=== PATIENT | male | born 1945 | race Caucasian/White ===

== ENCOUNTER 2025-01-08 14:11 | Emergency (ER) | payer MEDICARE, OTHER, SELFPAY ==
--- NOTE | ~2025-01-08 | XR_ITS ---
HISTORY: fall, L hip pain COMPARISON: None TECHNIQUE: 2 views of the left hip along with an AP view of the pelvis FINDINGS: No acute fracture or dislocation is identified. Superior lateral sclerosis of the femoral acetabular joint space is present consistent with osteoarth ritis. The bony demineralization is age-appropriate. Penile prosthetic is present. Asymmetric density within the left hemipelvis, caudal to the SI joint, likely related to prosthetic r ather than acute traumatic injury. IMPRESSION: Degenerative disease without acute fracture or dislocation Reviewed, dictated and finalized at location A.
--- NOTE | ~2025-01-08 | XR_ITS ---
HISTORY: fall, pain/swelling COMPARISON: None TECHNIQUE: 3 views of the left wrist were performed. FINDINGS: No acute displaced fracture is identified. Cortical irregularity along the radial margin of the distal radius, possibly representing prior fract ure deformity for which clinical evaluation for point tenderness is recommended. The carpal arcs are intact. Mild radiocarpal joint space narrowing with sclerosis of the distal radius is present. The remaining visualized joint spaces are otherwise preserved. Bone mineralization is unremarkable. No significant soft tissue swelling is noted. No radiopaque foreign body is identified. IMPRESSION: Findings within the radial margin of the distal radius possibly representing prior fracture deformity versus a nondisplaced acute fracture for which clinical correlation for point tenderness is needed. Reviewed, dictated and finalized at location A. IMPRESSION: Findings within the radial margin of the distal radius possibly representing pr ior fracture deformity versus a nondisplaced acute fracture for which clinical correlation for point tenderness is needed.
--- NOTE | ~2025-01-08 | CT_ITS ---
EXAMINATION: CT brain wo con DATE: 01/08/2025 14:40 INDICATION: Fall with head injury TECHNIQUE: Computed tomography (CT) of the head was performed without intravenous contrast. Sagittal and coronal reconstructions were performed. The mA was adjusted according to patient size. Iterative reconstruction technique was employed. The dose-length product was 605.33 mGy-cm. COMPARISON: None FINDINGS: No fracture. No acute intracranial hemorrhage, acute infarction or abnormal extra axial fluid collect ion. There is mild scattered white matter hypoattenuation consistent with chronic small vessel ischem ic disease. Symmetric prominence of the sulci consistent with mild age-appropriate diffuse cerebral v olume loss. Ventricles are normal and symmetric. There appears to be some enlargement of the pituitar y gland with convex bulging of the cephalad margin which extends minimally above level of the sella. No other masses identified. Intracranial calcified cerebral atherosclerosis is noted. Changes of bila teral intraocular lens replacement. The orbits, paranasal sinuses and mastoid air cells are normal. IMPRESSION: 1. Mild enlargement of the pituitary with convex cephalad margin bulging slightly beyond the level of the sella. Could consider further evaluation with pituitary MRI as clinically indicated. 2. No acute intracranial process. 3. Age-related changes including mild diffuse volume loss and mild scattered white matter hypoattenua tion likely sequela of chronic small vessel ischemic disease. Reviewed, dictated and finalized at location A. IMPRESSION: 1. Mild enlargement of the pituitary with convex cephalad margin bulging slight ly beyond the level of the sella. Could consider further evaluation with pituit doug MRI as clinically indicated. 2. No acute intracranial process. 3. Age-related changes including mild diffuse volume loss and mild scattered wh ite matter hypoattenuation likely sequela of chronic small vessel ischemic dise ase.
--- NOTE | ~2025-01-08 | XR_ITS ---
EXAM: XR elbow LT min 3V DATE: 01/08/2025 15:03 HISTORY: pain, fall . COMPARISON: None available. FINDINGS: Normal mineralization. No fracture or dislocation. No lytic or blastic lesion. Mild degene rative change at the left elbow. No erosion or periosteal change. Soft tissues within normal limits. IMPRESSION: No acute osseous finding in the left elbow. Reviewed, dictated and finalized at location K.
--- NOTE | ~2025-01-08 | CT_ITS ---
EXAMINATION: CT cervical spine wo con DATE: 01/08/2025 14:40 INDICATION: fall, HI TECHNIQUE: Computed tomography (CT) of the cervical spine was performed without intravenous contrast. Automated exposure control and iterative reconstruction technique were employed. The dose-length pro duct was 643.10 mGy-cm. COMPARISON: None. FINDINGS: Vertebral Body Alignment: Intact. Craniocervical and atlantoaxial alignment: Moderate degenerative change. Alignment intact. Osseous structures/fracture: No evidence of a lytic or blastic process in the visualized spine. No e vidence of acute fracture. Cervical soft tissues: The paraspinal soft tissues planes are maintained. Degenerative changes: Degenerative changes, without severe neural foraminal or central canal narrowin g. IMPRESSION: No acute fracture or traumatic malalignment in the cervical spine. Reviewed, dictated and finalized at location K.
--- NOTE | ~2025-01-08 | XR_ITS ---
EXAMINATION: XR shoulder LT min 2V DATE: 01/08/2025 15:03 INDICATION: Left shoulder pain post fall TECHNIQUE: AP and transscapular Y views of the left shoulder were obtained. COMPARISON: None FINDINGS: Normal alignment. No fracture. Glenohumeral joint space is insufficiently profiled to assess for kateryna nt space narrowing. There is moderate to severe osteoarthritis at the left acromioclavicular joint. S oft tissues are unremarkable. Visualized portions of the lungs are clear. 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 No acute osseous abnormality. Reviewed, dictated and finalized at location A. 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 No acute osseous abno rmality.
[2025-01-08 14:23] VITALS: BP 119/60; PULSE 74; RESP 16; TEMP 36.3; O2SAT 98
--- NOTE | 2025-01-08 15:06 | ED_ITS ---
HPI - Fall General Chief Complaint: Fall Stated Complaint: Fall - HI, Shoulder pain Time Seen by Provider: 01/08/25 14:28 Source: patient Mode of arrival: ambulatory Limitations: no limitations History of Present Illness HPI Narrative: Patient is a 79 y/o male, with PMH of Parkinson's disease, who presents to the ED with c/o a fall. Patient reports he was attempting to get out of a car on a sloped surface when the wind blew the door shut, causing him to stumble backwards and fall. He fell to his L side. He did hit his head. Sustained small abrasion to L forehead. Denied LOC. Also c/o pain to L shoulder, L elbow, L wrist, L hip. Has been ambulatory since the fall. Denies numbness. Denies chest pain or shortness breath. Denies neck or back pain. Related Data Home Medications ?Medication ?Instructions ?Recorded ?Confirmed ?Last Taken ?Type allopurinol 300 mg tablet 300 mg PO DAILY 03/16/24 Unknown History alpha lipoic acid 600 mg capsule 600 mg PO DAILY 03/16/24 Unknown History aspirin 81 mg tablet,delayed 81 mg PO DAILY 03/16/24 Unknown History release cyanocobalamin (vitamin B-12) 1,000 mcg PO DAILY 03/16/24 Unknown History 1,000 mcg capsule docusate sodium 100 mg capsule 100 mg PO BID 03/16/24 Unknown History (Colace) empagliflozin 10 mg tablet 10 mg PO DAILY 03/16/24 Unknown History (Jardiance) enalapril maleate 5 mg tablet 5 mg PO DAILY 03/16/24 Unknown History gabapentin 400 mg capsule 400 mg PO TID 03/16/24 Unknown History guaifenesin 400 mg tablet 400 mg PO QID 03/16/24 Unknown History guaifenesin 600 mg tablet, 600 mg PO BID 03/16/24 Unknown History extended release 12 hr (Mucinex) metformin 500 mg tablet 500 mg PO DAILY 03/16/24 Unknown History mirabegron 50 mg tablet,extended 50 mg PO DAILY 03/16/24 Unknown History release 24 hr (Myrbetriq) pantoprazole 40 mg tablet,delayed 40 mg PO QAM 03/16/24 Unknown History release rosuvastatin 10 mg tablet 10 mg PO DAILY 03/16/24 Unknown History simethicone 125 mg capsule (Gas 125 mg PO DAILY PRN 03/16/24 Unknown History Relief (simethicone)) Allergies Allergy/AdvReac Type Severity Reaction Status Date / Time No Known Allergies Allergy Verified 03/23/24 10:16 Review of Systems Review of Systems: All systems reviewed & are unremarkable except as noted in HPI. All systems reviewed & are unremarkable except as noted in HPI and below [facility] Past Medical History Medical History Diabetes Neuropathy Surgical History Surgical History History of heart artery stent Social History Social History Smoking status: Never smoker Alcohol intake: never Substance use type: does not use Do You Feel Safe in your Home?: Yes Lack of Transportation: No Lack of Food: Never True Current Housing: I Have Housing Concerned About Future Housing: No Difficulty Paying Gas/Electric Bills: No Difficulty Paying for Meds: No Currently Unemployed: No Education: Trade/Vocational Certificate Difficulty w/ Childcare or Family Care: No Living arrangements: with family Occupation/Education: retired Exam Narrative: GENERAL: Elderly, obese with BMI of 31.8, non-toxic, in no acute distress. HEAD: Normocephalic, atraumatic. RESPIRATORY: Airway patent, respirations nonlabored. Clear to auscultation bilaterally, no rales, rhonchi, wheezing. CARDIOVASCULAR: Regular rate and rhythm without murmurs, rubs, or gallops. Radial pulses strong and easily palpable. MUSCULOSKELETAL: Moves all extremities. No gross deformities. Mild TTP over L anterior shoulder joint/distal clavicular region, with fairly preserved ROM. TTP over lateral epicondyle of left elbow, left distal radius some swelling in this location. No significant tenderness over dorsal hand/distal ulnar region. No midline tenderness to cervical, thoracic, lumbar spine. No palpable bony deformities. SKIN: Warm, dry, normal color. NEURO: A&O X3. Speech clear. Cranial nerves II-XII grossly intact. No ataxic movements. No focal deficits. PSYCHIATRIC: Appropriate mood and affect. Normal interaction. Course Vital Signs Vital signs: Vital Signs Temperature 97.4 F L 01/08/25 14:23 Pulse Rate 74 01/08/25 14:23 Respiratory Rate 16 01/08/25 14:23 Blood Pressure 119/60 01/08/25 14:23 Pulse Oximetry 98 01/08/25 14:23 Temperature 97.4 F L 01/08/25 14:23 Pulse Rate 94 01/08/25 19:32 Respiratory Rate 16 01/08/25 19:32 Blood Pressure 131/73 01/08/25 19:32 Pulse Oximetry 93 01/08/25 19:32 MDM - Fall MDM Narrative Medical decision making narrative: Patient who presented to ED with ground level mechanical fall, head injury, pain to left shoulder/elbow/wrist. Vital signs stable upon arrival. Patient in no acute distress. Neurologically intact. CT brain and cervical spine without acute traumatic findings. Did show mild enlargement of pituitary gland which I made patient aware of may need further outpatient imaging. Advised patient have close follow-up with PCP for this. He has had previous brain imaging at outside facility, no records here to compare to. X-ray of left shoulder and left elbow without acute traumatic findings. Did also complain of slight pain to his left hip. X-ray of left hip/pelvis was obtained without acute fracture. X-ray of left wrist with possible distal radius fracture. Patient does have focal point tenderness in this region with swelling. Will treat as acute fracture. Placed in volar splint. Given sling. Advised to follow-up closely with Orthopedics for further evaluation. Patient has previously seen Dr. Davis. Discussed rice therapy. Patient has tramadol at home that he can use, also takes Tylenol and ibuprofen. Recommended to continue these medications, discussed strict return precautions. Patient in agreement with plan. Feels comfortable going home with family. Discharged in stable condition. Medical Records Attestation: I reviewed the patient's medical records. Imaging Data Attestation: I personally reviewed and interpreted this imaging study as follows: Radiologist's impression: ITS Impressions Head CT 01/08/25 14:43 IMPRESSION: 1. Mild enlargement of the pituitary with convex cephalad margin bulging slightl y beyond the level of the sella. Could consider further evaluation with pituitary MRI as clinically indicated. 2. No acute intracranial process. 3. Age-related changes including mild diffuse volume loss and mild scattered white matter hypoattenuation likely sequela of chronic small vessel ischemic disease. Cervical Spine CT 01/08/25 14:48 IMPRESSION: No acute fracture or traumatic malalignment in the cervical spine. 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 No acute osseous abnormality. Elbow X-Ray 01/08/25 15:26 IMPRESSION: No acute osseous finding in the left elbow. Wrist X-Ray 01/08/25 15:46 IMPRESSION: Findings within the radial margin of the distal radius possibly representing prior fracture deformity versus a nondisplaced acute fracture for which clinical correlation for point tenderness is needed. Discharge Plan Discharge Clinical Impression: Fall from ground level, Enlarged pituitary gland Closed head injury Qualifiers: Encounter type: initial encounter Qualified Code(s): S09.90XA - Unspecified injury of head, initial encounter Closed fracture of left distal radius Qualifiers: Encounter type: initial encounter Fracture morphology: other fracture Qualified Code(s): S52.592A - Other fractures of lower end of left radius, initial encounter for closed fracture Patient Disposition: Home, Self-Care Condition: Stable Instructions: Antibiotic Form, Wrist Fracture in Adults (ED), How to Use a Sling (ED), Head Injury (ED) Additional Instructions: Follow up with Orthopedics for further evaluation of wrist fracture. Call office to make appointment. Wear splint until seen by Orthopedics. Utilize sling for comfort and support. Continue Tylenol, ibuprofen, tramadol as needed for pain. Elevate arm whenever able, recommend frequent icing to wrist. Your CT scan of your brain showed mild enlargement of your pituitary gland. You will need further imaging of this. Follow-up with your primary care doctor for this. Return to the ED if you experience worsening or severe pain, recurrent injury, numbness, severe dizziness, passing out, or any other symptoms of concern. Patient Language: Romansh Prescriptions: No Action alpha lipoic acid 600 mg capsule 600 mg PO DAILY guaifenesin [Mucinex] 600 mg tablet extended release 12hr 600 mg PO BID enalapril maleate 5 mg tablet 5 mg PO DAILY rosuvastatin 10 mg tablet 10 mg PO DAILY allopurinol 300 mg tablet 300 mg PO DAILY mirabegron [Myrbetriq] 50 mg tablet extended release 24 hr 50 mg PO DAILY gabapentin 400 mg capsule 400 mg PO TID aspirin 81 mg tablet,delayed release (DR/EC) 81 mg PO DAILY guaifenesin 400 mg tablet 400 mg PO QID Jardiance 10 mg tablet 10 mg PO DAILY cyanocobalamin (vitamin B-12) 1,000 mcg capsule 1,000 mcg PO DAILY pantoprazole 40 mg tablet,delayed release (DR/EC) 40 mg PO QAM metformin 500 mg tablet 500 mg PO DAILY simethicone [Gas Relief (simethicone)] 125 mg capsule 125 mg PO DAILY PRN docusate sodium [Colace] 100 mg capsule 100 mg PO BID Follow-up/Referrals: Joshua,Baltazar Armstrong MD [Primary Care Provider] - Sandro Davis MD [Physician] - (ORTHOPEDICS) Time of Disposition: 17:27
--- OUTSIDE RECORDS SUMMARY | 2025-01-08 15:38 | XMS_ITS | CONTINUITY OF CARE DOCUMENT ---
Author Name tate ybarra Address Unknown Organization [facility] Address [address] [place] [address] Phone [phone] Care Team Providers Care Trim Master Operator Name Role Phone Nathaniel Washington MD Unavailable [phone] WARD STERN MD Unavailable [phone] WARD STERN MD Unavailable PROBLEMS Condition Status Date Provider Notes Cardiology examination completed 5 - Nathaniel Washington MD Hypertension active Nathaniel Washington MD Shortness of breath active Nathnaiel Washington MD Leg edema, bilateral active Nathaniel Washington MD CHF active Maura Nolan Preop cardiovasc. examination active Elizabeth Nolan Fatigue active Nathaniel Washington MD Diabetes mellitus active Nathaniel Washington MD Dyslipidemia active Nathaniel Washington MD Cardiomyopathy - 02/2019 CAT H EF 35% - 05/2019 TTE EF 55% active Joselito Lewis NSTEMI 02/2019 active Nathaniel Washington MD CAD S/P LAD STENT 02/2019 active Joselito Lewis Family History of CVA or Stroke: completed - Nathaniel Washington MD Family History of Hypertension: completed - Nathaniel Washington MD ENCOUNTERS Date Type Provider Location Encounter Diag nosis - In-person encounter Office Visit Nathaniel Washington MD [facility] - In-person encounter Office Visit Nathaniel Washington MD [facility] Leg edema, bilateral - In-person encounter Office Visit Nathaniel Washington MD [facility] - In-person encounter Office Visit Nathaniel Washington MD [facility] - In-person encounter Office Visit Nathaniel Washington MD [facility] - In-person encounter Office Visit Nathaniel Washington MD [facility] CHF - In-person encounter Office Visit Nathaniel Washington MD [facility] Preop cardiovasc. examination - In-person encounter Office Visit Nathaniel Washington MD [facility] Shortness of breathFatigue - In-person encounter Office Visit Nathaniel Washington MD [facility] - In-person encounter Office Visit Nathaniel Washington MD [facility] CAD S/P LAD STENT 02/2019Cardiomyopathy - 02/2019 CATH EF 35% - 05/2019 TTE EF 55% - In-person encounter Office Visit Nathaniel Washington MD [facility] Cardiology examinationFamily History of Hypertension:Family History of CVA or Stroke:CAD S/P LAD STENT 02/2019NSTEMI 02/2019Cardiomyopathy - 02/2019 CATH EF 35% - 05/2019 TTE EF 55%HypertensionDyslipidem iaDiabetes mellitus VITAL SIGNS Date Observation Value Provider Body Mass Index (Ratio) 31.22 kg/m2 Nathaniel Washington MD blood pressure, diastolic 75 mm[Hg] Liban ortiz [place] blood pressure, systolic 139 mm[Hg] Selene becker [place] oxygen saturation, oximetry 98 % Maite [place] pulse rate 73 /min Maite [place] weight E&M 217.6 [lb_av] Kyaron Ramirez height E&M 70 [in_i] Maite Ramirez blood pressure, cuff size regular Liban ortiz Ramirez Body Mass Index (Ratio) 31.42 kg/m2 Elver Marti oxygen saturation, oximetry 97 % Jo Ann Michaels blood pressure, cuff size regular An jordana Michaels blood pressure, diastolic 78 mm[Hg] An iyanico Michaels blood pressure, systolic 128 mm[Hg] Robina escobar [place] respiratory rate E&M 14 /min [facility] E&M 219 [lb_av] [facility] height E&M 70 [in_i] [facility] Body Mass Index (Ratio) 32.42 kg/m2 Grah am Lul blood pressure, diastolic 71 mm[Hg] Li nkLogic blood pressure, systolic 126 mm[Hg] Sydney kLogic blood pressure, cuff size regular Zeyad rret blood pressure, diastolic 71 mm[Hg] Ja rret blood pressure, systolic 126 mm[Hg] Jar ret pulse rate 75 /min Justo oxygen saturation, oximetry 98 % Justo respiratory rate E&M 14 /min Justo weight E&M 226 [lb_av] Justo da height E&M 70 [in_i] Justo Body Mass Index (Ratio) 34.86 kg/m2 Grah am Lul blood pressure, cuff size regular Delisa [facility] blood pressure, diastolic 63 mm[Hg] [facility] blood pressure, systolic 123 mm[Hg] [facility] Vance pulse rate 68 /min Karolina Vance oxygen saturation, oximetry 99 % Karolina Vance respiratory rate E&M 16 /min Karolina huertar weight E&M 243 [lb_av] Karolina Vance height E&M 70 [in_i] Karolina [place] Body Mass Index (Ratio) 33.28 kg/m2 Jhonatan mendoza [facility] blood pressure, cuff size regular Ja rret blood pressure, diastolic 64 mm[Hg] Ja rret blood pressure, systolic 106 mm[Hg] Jar ret oxygen saturation, oximetry 100 % Justo respiratory rate E&M 12 /min Justo pulse rate 68 /min Justo y weight E&M 232 [lb_av] Justo y height E&M 70 [in_i] Justo y Body Mass Index (Ratio) 34.58 kg/m2 Caroline Nolan blood pressure, diastolic 69 mm[Hg] St niesha Ansari blood pressure, systolic 128 mm[Hg] Karuna Ansari weight E&M 241 [lb_av] Patricia Ansari oxygen saturation, oximetry 97 % Patricia Ansari pulse rate 70 /min Patricia Ansari respiratory rate E&M 16 /min Patricia shannon height E&M 70 [in_i] Patricia Ansari Body Mass Index (Ratio) 35.44 kg/m2 Caroline Nolan blood pressure, cuff size large Ke rri Olivier blood pressure, diastolic 76 mm[Hg] Ke rri [place] blood pressure, systolic 142 mm[Hg] Chris Aguayo oxygen saturation, oximetry 99 % Laura Aguayo respiratory rate E&M 16 /min Laura uselder pulse rate 75 /min Laura Starks lder weight E&M 247 [lb_av] Laura Starks lder height E&M 70 [in_i] Laura Starks lder Body Mass Index (Ratio) 34.86 kg/m2 Caroline Carrasquillomegood blood pressure, diastolic 58 mm[Hg] Li nkLogic blood pressure, systolic 114 mm[Hg] Sydney kLogic blood pressure, diastolic 58 mm[Hg] Sa ra Chong blood pressure, systolic 114 mm[Hg] Amadou a Chong respiratory rate E&M 17 /min Janeth Si ms oxygen saturation, oximetry 98 % Janeth Chong pulse rate 70 /min Janeth Chong blood pressure, cuff size regular Sa ra Chong weight E&M 243 [lb_av] Janeth Chong height E&M 70 [in_i] Janeth Chong Body Mass Index (Ratio) 35.87 kg/m2 Caroline Carrasquillomeyer blood pressure, diastolic 70 mm[Hg] Li nkLogic blood pressure, systolic 140 mm[Hg] Sydney kLogic blood pressure, cuff size regular Kr isty [place] blood pressure, diastolic 70 mm[Hg] Kr isty [place] blood pressure, systolic 140 mm[Hg] Kri sty [place] pulse rate 80 /min Kerrie [place] oxygen saturation, oximetry 98 % Kerrie [place] respiratory rate E&M 19 /min Kerrie [place] weight E&M 250 [lb_av] Kerrie Mauro height E&M 70 [in_i] Kerrie [place] Body Mass Index (Ratio) 34.72 kg/m2 Artem Lewis blood pressure, diastolic, left arm 73 mm [Hg] [facility] blood pressure, systolic, left arm 131 mm [Hg] [facility] blood pressure, diastolic, right arm 79 m m[Hg] [facility] blood pressure, systolic, right arm 133 m m[Hg] [facility] blood pressure, diastolic 79 mm[Hg] [facility] blood pressure, systolic 133 mm[Hg] [facility] oxygen saturation, oximetry 98 % [facility] respiratory rate E&M 16 /min [facility] pulse rate 71 /min [facility] weight E&M 242 [lb_av] [facility] height E&M 70 [in_i] [facility] Body Mass Index (Ratio) 22.96 kg/m2 Artem [place] blood pressure, resting Yes Nathaniel Washington MD blood pressure, cuff size regular Cy jett Mayo blood pressure, diastolic 62 mm[Hg] Cy jett Mayo blood pressure, systolic 120 mm[Hg] Jessica dipak [place] oxygen saturation, oximetry 98 % Briseida Mayo respiratory rate E&M 16 /min Briseida Mayo pulse rate 70 /min Briseida Constantino l height E&M 70 [in_i] Briseida Yobanibel l weight E&M 160 [lb_av] Briseida Yobanibel l ALLERGIES No Known Drug Allergies RESULTS Date Observation Value Provider Reference Range Interpretation Location hemoglobin A1C, blood, as % of total hemoglobin 6.0 % OF TOTAL HGB [facility] <5.7 High C-reactive protein, serum <3.0 mg/L [facility] <8.0 Normal basophils as percent of blood leukocytes 1.5 % [facility] Normal eosinophils as percent of blood leukocytes 2.5 % [facility] Normal monocyte count, blood 7.9 % [facility] Normal lymphocyte count, blood 29.3 % [facility] Normal neutrophils as percent of blood leukocytes 58.8 % [facility] Normal basophils, absolute, manual 102 cells/mcL [facility] 0-200 Normal eosinophils, absolute, manual 170 cells/mcL [facility] 15-500 Normal monocytes, absolute, manual 537 cells/mcL [facility] 200-950 Normal lymphocytes, absolute 1992 CELLS/UL [facility] 850-3900 Normal Absolute Neutrophil count 3998 cells/mcL [facility] [id number] Normal mean platelet volume 11.8 fL [facility] 7.5-12.5 Normal platelet count 227 THOUSAND/ UL [facility] 140-400 Normal red blood cell distribution width 12.8 % [facility] 11.0-15.0 Normal mean corpuscular hemoglobin concentration, RBC 31.8 G/DL [facility] 32.0-36.0 Low mean corpuscular hemoglobin, RBC 29.9 pg [facility] 27.0-33.0 Normal mean corpuscular volume, RBC 94.1 fL [facility] 80.0-100.0 Normal hematocrit, blood 44.4 % [facility] 38.5-50.0 Normal hemoglobin electrophoresis, blood 14.1 [facility] 13.2-17.1 Normal erythrocyte (RBC) count 4.72 MILLION/U L [facility] 4.20-5.80 Normal leukocyte (white blood cells) count, blood 6.8 THOUSAND/ UL [facility] 3.8-10.8 Normal NT-pro BNP 81 [facility] <450 Normal alanine aminotransferase (SGPT), serum 15 1/L [facility] 9-46 Normal aspartate aminotransferase (SGOT), serum 17 1/L [facility] 10-35 Normal alkaline phosphatase, serum 71 1/L [facility] 35-144 Normal bilirubin, serum, total 0.4 mg/dL [facility] 0.2-1.2 Normal albumin/globulin ratio, serum 1.8 (calc) [facility] 1.0-2.5 Normal globulins, serum, total 2.3 G/DL (CALC) [facility] 1.9-3.7 Normal albumin, serum 4.2 g/dL [facility] 3.6-5.1 Normal protein, total, serum 6.5 g/dL [facility] 6.1-8.1 Normal calcium, serum 9.1 mg/dL [facility] 8.6-10.3 Normal carbon dioxide, venous blood 30 mmol/L [facility] 20-32 Normal chloride, serum 103 mmol/L [facility] 98-110 Normal potassium, serum 4.5 mmol/L [facility] 3.5-5.3 Normal sodium, serum 141 mmol/L [facility] 135-146 Normal urea nitrogen/creatinine ratio, serum SEE NOTE: (calc) [facility] 6-22 creatinine, serum 1.01 mg/dL [facility] 0.70-1.28 Normal urea nitrogen, blood 16 mg/dL [facility] 7-25 Normal blood glucose, random 106 mg/dL [facility] 65-99 High microalbumin/creatin ine ratio, urine 23 MG/G CREAT [facility] <30 Normal microalbumin/total urine volume 19 mg/L [facility] Units converted. See lab report for original value. Normal creatinine, random, urine 83 mg/dL [facility] 20-320 Normal cholesterol, non-HDL, total 66 MG/DL (CALC) [facility] <130 Normal cholesterol/HDL ratio, serum, percent 2.5 (calc) [facility] <5.0 Normal LDL cholesterol, serum 44 MG/DL (CALC) [facility] Normal triglyceride, serum, fasting 132 mg/dL [facility] <150 Normal HDL cholesterol, serum 44 mg/dL [facility] > OR = 40 Normal cholesterol, serum 110 mg/dL [facility] <200 Normal hemoglobin A1C, blood, as % of total hemoglobin 6.1 % OF TOTAL HGB [facility] <5.7 High C-reactive protein, by highly sensitive test 4.5 mg/L [facility] High calcium, serum 9.1 mg/dL [facility] 8.6-10.3 Normal carbon dioxide, venous blood 31 mmol/L [facility] 20-32 Normal chloride, serum 103 mmol/L [facility] 98-110 Normal potassium, serum 4.5 mmol/L [facility] 3.5-5.3 Normal sodium, serum 143 mmol/L [facility] 135-146 Normal urea nitrogen/creatinine ratio, serum SEE NOTE: (calc) [facility] 6-22 creatinine, serum 1.19 mg/dL [facility] 0.70-1.28 Normal urea nitrogen, blood 20 mg/dL [facility] 7-25 Normal blood glucose, random 112 mg/dL [facility] 65-99 High NT-pro BNP 185 [facility] <450 Normal microalbumin/creatin ine ratio, urine 29 MCG/MG CREAT [facility] <30 Normal microalbumin/total urine volume 10 mg/L [facility] Units converted. See lab report for original value. Normal creatinine, random, urine 34 mg/dL [facility] 20-320 Normal cholesterol, non-HDL, total 117 MG/DL (CALC) [facility] <130 Normal cholesterol/HDL ratio, serum, percent 3.5 (calc) [facility] <5.0 Normal LDL cholesterol, serum 86 MG/DL (CALC) [facility] Normal triglyceride, serum, fasting 222 mg/dL [facility] <150 High HDL cholesterol, serum 46 mg/dL [facility] > OR = 40 Normal cholesterol, serum 163 mg/dL [facility] <200 Normal hemoglobin A1C, blood, as % of total hemoglobin 8.4 % [facility] triglyceride, serum, fasting 182 mg/dL [facility] HDL cholesterol, serum 35 mg/dL [facility] cholesterol, serum 141 mg/dL [facility] platelet count 202 10*3/uL [facility] red blood cell distribution width 13.7 % [facility] mean corpuscular hemoglobin concentration, RBC 32.8 g/dL [facility] mean corpuscular hemoglobin, RBC 28.8 pg [facility] mean corpuscular volume, RBC 87.9 fL [facility] hematocrit, blood 40.6 % [facility] hemoglobin, blood 13.3 g/dL [facility] erythrocyte (RBC) count 4.62 10*6/mm3 [facility] leukocyte count, blood 10.8 10*3/mm3 [facility] calcium, serum 9.0 mg/dL [facility] blood glucose, random 186 mg/dL [facility] creatinine, serum 1.06 mg/dL [facility] urea nitrogen, blood 22 mg/dL [facility] carbon dioxide, serum, total 27 mmol/L [facility] chloride, serum 97 mmol/L [facility] potassium, serum 3.4 mmol/L [facility] sodium, serum 136 mmol/L [facility] LDL cholesterol, serum 70 mg/dL [facility] HISTORY OF MEDICATION USE Medication Status Instructions Dates Provider Indications [facility] ments allopurinol 300 mg tablet active Take 1 tablet by mouth once daily James Severino rosuvastatin 10 mg tablet active TAKE 1 TABLET BY MOUTH EVERY DAY AT NIGHT 01/22 Nathaniel Washington MD Jardiance 10 mg tablet active Take 1 tablet by mouth once daily 11/14 Nathaniel Washington MD allopurinol 300 mg tablet completed Take 1 tablet by mouth once a day - James Severino Jardiance 10 mg tablet completed Take 1 tablet by mouth once a day - 11/14 Justo Arce enalapril maleate 5 mg tablet active TAKE 1 TABLET BY MOUTH AT BEDTIME 05/17 Nathaniel Washington MD Brilinta 90 mg tablet completed Take 1 tablet by mouth twice daily 11/01 - 04/25 Nathaniel Washington MD carvedilol 3.125 mg tablet completed Take 1 tablet by mouth twice daily 06/24 - Nathaniel Washington MD OneTouch Verio test strips strip active USE 1 STRIP TO CHECK GLUCOSE ONCE DAILY Kerrie LazcanoTouch Delica Plus Lancet 33 gauge 33 gauge active USE 1 TO CHECK GLUCOSE ONCE DAILY Kerrie Mauro tramadol 50 mg tablet active Kerrie Mauro CRANBERRY 500 MG ORAL CAPSULE active Take 1 tablet once a day 03/14 Briseida Mayo allopurinol 300 mg tablet completed Take 1 tablet once a day 03/14 - 04/25 Nathaniel Washington MD metformin 500 mg tablet active Take 1 tablet twice a day 03/14 Briseida Mayo HYDROCHLOROTHIAZIDE 25 MG ORAL TABLET entered-in -error Take 1 tablet daily 03/14 - 03/14 Nathaniel Washington MD HYDROCHLOROTHIAZIDE 50 MG ORAL TABLET entered-in -error take 1 tablet daily 03/14 - 03/14 Nathaniel Washington MD enalapril maleate 5 mg tablet completed Take 1 tablet by mouth every night 05/25 - 05/17 Dominique Sow Brilinta 90 mg tablet completed Take 1 tablet by mouth twice a day 01/31 - 11/01 Laura Nazarioshaemoisés aspirin 81 mg tablet,chewable active Take 1 tablet once a day 03/14 Briseida Mayo potassium citrate 10 mEq (1,080 mg) tablet extended release active 01/15 Briseida Mayo #120, 60 days supply, Prescribed by PETER HIGUERA, Filled 01/17/2019 BRILINTA 90 MG ORAL TABLET entered-in -error Take 1 tablet a day 02/12 - 03/14 Nathaniel Washington MD #60, 30 days supply, Prescribed by LEANDER GRIMES, Filled 02/12/2019 hydrochlorothiazide 25 mg tablet active Take 3 tablet by mouth once a day 10/31 Briseida Mayo #90, 30 days supply, Prescribed by PETER HIGUERA, Filled 03/10/2019 ENALAPRIL MALEATE 5 MG ORAL TABLET entered-in -error TAKE 1 TABLET BY MOUTH ONCE DAILY AT BEDTIME 02/12 - 03/14 Nathaniel Washington MD #30, 30 days supply, Prescribed by LEANDER GRIMES, Filled 03/10/2019 carvedilol 6.25 mg tablet completed Take 1 tablet by mouth twice a day 02/01 - 06/24 Edin Flores #60, 30 days supply, Prescribed by LEANDER GRIMES, Filled 03/10/2019 SOCIAL HISTORY Date Observation Value Provider smoking status Never smoker Nathaniel Briceño smoking status Never smoker Nathaniel Briceño smoking status Never smoker Maycol galeas social history reviewed E&M revi ewed - no changes required Maycol Mccarty social history reviewed E&M revi ewed - no changes required Nathaniel Washington MD smoking status Never smoker Patricia Ansari social history reviewed E&M revi ewed - no changes required Maura Nolan social history E&M S moking History: P stacy has never smoked. Maura Nolan social history reviewed E&M revi ewed - no changes required Maura Nolan smoking status Never smoker Laura branham social history reviewed E&M revi ewed - no changes required Maura Nolan social history E&M S moking History: P stacy has never smoked. Nathaniel Washington MD social history reviewed E&M revi ewed - no changes required Nathaniel Washington MD smoking status Never smoker Kerrie Ramirezby social history reviewed E&M revi ewed - no changes required Joselito Lewis smoking status Never smoker Bea Schaeffer social history reviewed E&M revi ewed - no changes required Joselito Lewis social history E&M Smoking Histo ry: P stacy has never smoked. Joselito Lewis smoking status Never smoker Briseida rios FUNCTIONAL STATUS Date Observation Value Provider HRA, CV Assess/Plan, Angina (inactive) Management Plan continue current therapy Nathaniel Washington MD HRA, CV Assess/Plan, Angina (inactive) Management Plan continue current therapy, antianginal therapy Nathaniel Washington MD HRA, CV Assess/Plan, Angina (inactive) Management Plan continue current therapy Maycol Mccarty HRA, CV Assess/Plan, Angina (inactive) Management Plan continue current therapy Maycol Mccarty HRA, CV Assess/Plan, Angina (inactive) Management Plan continue current therapy Nathaniel Washington MD HRA, CV Assess/Plan, Angina (inactive) Management Plan continue current therapy Maura Nolan HRA, CV Assess/Plan, Angina (inactive) Management Plan continue current therapy Nathaniel Washington MD HRA, CV Assess/Plan, Angina (inactive) Management Plan continue current therapy Maura Nolan HRA, CV Assess/Plan, Angina (inactive) Management Plan continue current therapy Nathaniel Washington MD HRA, CV Assess/Plan, Angina (inactive) Management Plan continue current therapy Joselito Lewis HRA, CV Assess/Plan, Angina (inactive) Management Plan continue current therapy Joselito Lewis FAMILY HISTORY Family Member Condition Father Family History of CV A or Stroke: Mother Family History of Hy pertension: INSURANCE PROVIDERS Payer name Policy type / Coverage type Orange red constitution party ID [employer] [id number] [place] MEDICARE Medicare [id number] ADVANCE DIRECTIVES Name Date DISCUSSED - NO DECISION MADE TREATMENT PLAN Date Name Performer [id number],Maycol Johnson [id number],S, B P today: 123/63 P rior BP: 106/64 (04/25/2023) Labs Reviewed: C reat: 1.06 (02/12/2019) C hol: 141 (02/12/2019) HDL: 35 (02/12/2019) LDL: 70 (02/12/2019) T (02/12/2019) The following medications were removed from the medication list: Carvedilol 3.125 Mg Tablet (Carvedilol) ..... Take 1 tablet by mouth twice daily His updated medication list for this problem includes: Enalapril Maleate 5 Mg Tablet (Enalapril maleate) ..... Take 1 tablet by mouth at bedtime Hydrochlorothiazide 25 Mg Tablet (Hydrochlorothiazide) ..... Take 3 tablet by mouth once a day Aspirin 81 Mg Tablet,chewable (Aspirin) ..... Take 1 tablet once a day Maycol Mccarty [id number],S, H is updated medication list for this problem includes: Enalapril Maleate 5 Mg Tablet (Enalapril maleate) ..... Take 1 tablet by mouth at bedtime Jardiance 10 Mg Tablet (Empagliflozin) ..... Take 1 tablet by mouth once a day Metformin 500 Mg Tablet (Metformin) ..... Take 1 tablet twice a day Aspirin 81 Mg Tablet,chewable (Aspirin) ..... Take 1 tablet once a day Maycol Mccarty [id number],S, T he following medications were removed from the medication list: Carvedilol 3.125 Mg Tablet (Carvedilol) ..... Take 1 tablet by mouth twice daily His updated medication list for this problem includes: Enalapril Maleate 5 Mg Tablet (Enalapril maleate) ..... Take 1 tablet by mouth at bedtime Hydrochlorothiazide 25 Mg Tablet (Hydrochlorothiazide) ..... Take 3 tablet by mouth once a day Aspirin 81 Mg Tablet,chewable (Aspirin) ..... Take 1 tablet once a day Macyol Valadezri [id number],S,S till complaining of fatigue, we will stop carvedilol today. Will obtain f/u echo he will resume allopurinol for his gout. We will obtain lab work Maycol Mccarty [id number],C, D iet controlled Nathaniel Washington MD [id number],C, T he following medications were removed from the medication list: Brilinta 90 Mg Tablet (Ticagrelor) ..... Take 1 tablet by mouth twice daily His updated medication list for this problem includes: Carvedilol 3.125 Mg Tablet (Carvedilol) ..... Take 1 tablet by mouth twice daily Enalapril Maleate 5 Mg Tablet (Enalapril maleate) ..... Take 1 tablet by mouth at bedtime Hydrochlorothiazide 25 Mg Tablet (Hydrochlorothiazide) ..... Take 3 tablet by mouth once a day Aspirin 81 Mg Tablet,chewable (Aspirin) ..... Take 1 tablet once a day Pt denies SOB and chest pain. Overall doing well. Nathaniel Washington MD [id number],C, H is updated medication list for this problem includes: Enalapril Maleate 5 Mg Tablet (Enalapril maleate) ..... Take 1 tablet by mouth at bedtime Jardiance 10 Mg Tablet (Empagliflozin) ..... Take 1 tablet by mouth once a day Metformin 500 Mg Tablet (Metformin) ..... Take 1 tablet twice a day Aspirin 81 Mg Tablet,chewable (Aspirin) ..... Take 1 tablet once a day Nathaniel Washington MD [id number],C, B P today: 106/64 P rior BP: 128/69 (10/25/2022) Labs Reviewed: C reat: 1.06 (02/12/2019) C hol: 141 (02/12/2019) HDL: 35 (02/12/2019) LDL: 70 (02/12/2019) T (02/12/2019) His updated medication list for this problem includes: Carvedilol 6.25 Mg Tablet (Carvedilol) ..... Take 1 tablet by mouth twice daily Enalapril Maleate 5 Mg Tablet (Enalapril maleate) ..... Take 1 tablet by mouth at bedtime Hydrochlorothiazide 25 Mg Tablet (Hydrochlorothiazide) ..... Take 3 tablet by mouth once a day Aspirin 81 Mg Tablet,chewable (Aspirin) ..... Take 1 tablet once a day Orders: 9 9214 MOD 30-39min ([id number]) R PM (remote patient monitoring) (20590) Nathaniel Washington MD [id number],S, P t presented to [facility] with chest discomfort, ruled in for FL, and stent was placed in the mid LAD. Nathaniel Washington MD [id number],C, P t reports improvement with Jardiance, however still SOB CHF class III. PFTs were normal. [facility]. T he following medications were removed from the medication list: Brilinta 90 Mg Tablet (Ticagrelor) ..... Take 1 tablet by mouth twice daily His updated medication list for this problem includes: Carvedilol 3.125 Mg Tablet (Carvedilol) ..... Take 1 tablet by mouth twice daily Enalapril Maleate 5 Mg Tablet (Enalapril maleate) ..... Take 1 tablet by mouth at bedtime Hydrochlorothiazide 25 Mg Tablet (Hydrochlorothiazide) ..... Take 3 tablet by mouth once a day Aspirin 81 Mg Tablet,chewable (Aspirin) ..... Take 1 tablet once a day Nathaniel Washington MD [id number],C, P t denies any chest pain. T he following medications were removed from the medication list: Brilinta 90 Mg Tablet (Ticagrelor) ..... Take 1 tablet by mouth twice daily H is updated medication list for this problem includes: Carvedilol 3.125 Mg Tablet (Carvedilol) ..... Take 1 tablet by mouth twice daily Enalapril Maleate 5 Mg Tablet (Enalapril maleate) ..... Take 1 tablet by mouth at bedtime Aspirin 81 Mg Tablet,chewable (Aspirin) ..... Take 1 tablet once a day Nathaniel Washington MD [id number],C,P t reports improvement with Jardiance, however still SOB CHF class III. PFTs were normal. He [facility]. H is updated medication list for this problem includes: Enalapril Maleate 5 Mg Tablet (Enalapril maleate) ..... Take 1 tablet by mouth at bedtime Carvedilol 6.25 Mg Tablet (Carvedilol) ..... Take 1 tablet by mouth twice daily Hydrochlorothiazide 25 Mg Tablet (Hydrochlorothiazide) ..... Take 3 tablet by mouth once a day Aspirin 81 Mg Tablet,chewable (Aspirin) ..... Take 1 tablet once a day Maura Nolan [id number],C, H is updated medication list for this problem includes: Enalapril Maleate 5 Mg Tablet (Enalapril maleate) ..... Take 1 tablet by mouth at bedtime Jardiance 10 Mg Tablet (Empagliflozin) ..... Take 1 tablet by mouth once a day Metformin 500 Mg Tablet (Metformin) ..... Take 1 tablet twice a day Aspirin 81 Mg Tablet,chewable (Aspirin) ..... Take 1 tablet once a day Maura Nolan [id number],S, D iet controlled [facility] [place] [id number],C, B P today: 128/69 P rior BP: 142/76 (07/26/2022) Labs Reviewed: C reat: 1.06 (02/12/2019) C hol: 141 (02/12/2019) HDL: 35 (02/12/2019) LDL: 70 (02/12/2019) T (02/12/2019) His updated medication list for this problem includes: Enalapril Maleate 5 Mg Tablet (Enalapril maleate) ..... Take 1 tablet by mouth at bedtime Carvedilol 6.25 Mg Tablet (Carvedilol) ..... Take 1 tablet by mouth twice daily Hydrochlorothiazide 25 Mg Tablet (Hydrochlorothiazide) ..... Take 3 tablet by mouth once a day Aspirin 81 Mg Tablet,chewable (Aspirin) ..... Take 1 tablet once a day [facility] [id number],C,P t denies any chest pain. His updated medication list for this problem includes: Brilinta 90 Mg Tablet (Ticagrelor) ..... Take 1 tablet by mouth twice daily Enalapril Maleate 5 Mg Tablet (Enalapril maleate) ..... Take 1 tablet by mouth at bedtime Carvedilol 6.25 Mg Tablet (Carvedilol) ..... Take 1 tablet by mouth twice daily Aspirin 81 Mg Tablet,chewable (Aspirin) ..... Take 1 tablet once a day [facility] [id number],C,P t reports improvement with Jardiance, however still SOB CHF class III. PFTs were normal. He would liek to pariticpate in the [facility] HFpEF trial. H is updated medication list for this problem includes: Brilinta 90 Mg Tablet (Ticagrelor) ..... Take 1 tablet by mouth twice daily Enalapril Maleate 5 Mg Tablet (Enalapril maleate) ..... Take 1 tablet by mouth at bedtime Carvedilol 6.25 Mg Tablet (Carvedilol) ..... Take 1 tablet by mouth twice daily Hydrochlorothiazide 25 Mg Tablet (Hydrochlorothiazide) ..... Take 3 tablet by mouth once a day Aspirin 81 Mg Tablet,chewable (Aspirin) ..... Take 1 tablet once a day Maura Nolan [id number],C, He is planned for surgery, he is cleared for surgery from cardiovascular perspective. H is updated medication list for this problem includes: Brilinta 90 Mg Tablet (Ticagrelor) ..... Take 1 tablet by mouth twice daily Enalapril Maleate 5 Mg Tablet (Enalapril maleate) ..... Take 1 tablet by mouth at bedtime Carvedilol 6.25 Mg Tablet (Carvedilol) ..... Take 1 tablet by mouth twice daily Aspirin 81 Mg Tablet,chewable (Aspirin) ..... Take 1 tablet once a day Maura Schwarzgood [id number],C, EF preserved. LVEDP was elevated consistent with HFpEF. Will try Jardiance 10 mg . Will obtain PFTs for non cardiovascular cause of SOB. He is planned for surgery, he is cleared for surgery from cardiovascular perspective. Maura Schwarzgood [id number],C, EF preserved. LVEDP was elevated consistent with HFpEF. Will try Jardiance 10 mg . Will obtain PFTs for non cardiovascular cause of SOB. H is updated medication list for this problem includes: Enalapril Maleate 5 Mg Tablet (Enalapril maleate) ..... Take 1 tablet by mouth at bedtime Carvedilol 6.25 Mg Tablet (Carvedilol) ..... Take 1 tablet by mouth twice daily Hydrochlorothiazide 25 Mg Tablet (Hydrochlorothiazide) ..... Take 3 tablet by mouth once a day Aspirin 81 Mg Tablet,chewable (Aspirin) ..... Take 1 tablet once a day Maura Schwarzgood [id number],C,C ardiac cath revealed no significant coronary stenosis. EF preserved. LVEDP was elevated consistent with HFpEF. Will try Jardiance 10 mg . H is updated medication list for this problem includes: Brilinta 90 Mg Tablet (Ticagrelor) ..... Take 1 tablet by mouth twice daily Enalapril Maleate 5 Mg Tablet (Enalapril maleate) ..... Take 1 tablet by mouth at bedtime Carvedilol 6.25 Mg Tablet (Carvedilol) ..... Take 1 tablet by mouth twice daily Aspirin 81 Mg Tablet,chewable (Aspirin) ..... Take 1 tablet once a day Maura An [id number],C, H is updated medication list for this problem includes: Jardiance 10 Mg Tablet (Empagliflozin) ..... Take 1 tablet by mouth once a day Enalapril Maleate 5 Mg Tablet (Enalapril maleate) ..... Take 1 tablet by mouth at bedtime Metformin 500 Mg Tablet (Metformin) ..... Take 1 tablet twice a day Aspirin 81 Mg Tablet,chewable (Aspirin) ..... Take 1 tablet once a day Nathaniel Washington MD [id number],C, D iet controlled Nathaniel Washington MD [id number],C, B P today: 142/76 P rior BP: 114/58 (05/24/2022) Labs Reviewed: C reat: 1.06 (02/12/2019) C hol: 141 (02/12/2019) HDL: 35 (02/12/2019) LDL: 70 (02/12/2019) T (02/12/2019) His updated medication list for this problem includes: Enalapril Maleate 5 Mg Tablet (Enalapril maleate) ..... Take 1 tablet by mouth at bedtime Carvedilol 6.25 Mg Tablet (Carvedilol) ..... Take 1 tablet by mouth twice daily Hydrochlorothiazide 25 Mg Tablet (Hydrochlorothiazide) ..... Take 3 tablet by mouth once a day Aspirin 81 Mg Tablet,chewable (Aspirin) ..... Take 1 tablet once a day Nathaniel Washington MD [id number],C, H is updated medication list for this problem includes: Enalapril Maleate 5 Mg Tablet (Enalapril maleate) ..... Take 1 tablet by mouth at bedtime Metformin 500 Mg Tablet (Metformin) ..... Take 1 tablet twice a day Aspirin 81 Mg Tablet,chewable (Aspirin) ..... Take 1 tablet once a day Maura An [id number],C, B P today: 114/58 P rior BP: 140/70 (05/25/2021) Labs Reviewed: C reat: 1.06 (02/12/2019) C hol: 141 (02/12/2019) HDL: 35 (02/12/2019) LDL: 70 (02/12/2019) T (02/12/2019) His updated medication list for this problem includes: Enalapril Maleate 5 Mg Tablet (Enalapril maleate) ..... Take 1 tablet by mouth at bedtime Carvedilol 6.25 Mg Tablet (Carvedilol) ..... Take 1 tablet by mouth twice daily Hydrochlorothiazide 25 Mg Tablet (Hydrochlorothiazide) ..... Take 3 tablet by mouth once a day Aspirin 81 Mg Tablet,chewable (Aspirin) ..... Take 1 tablet once a day Maura An [id number],C,C omplaing of SOB with minimal exertion and excessive faitgue. Pt denies chest pain. Echo showed normal EF. Due to hx of severe CAD and his symptoms, will obtain R/L cardiac cath. His updated medication list for this problem includes: Brilinta 90 Mg Tablet (Ticagrelor) ..... Take 1 tablet by mouth twice daily Enalapril Maleate 5 Mg Tablet (Enalapril maleate) ..... Take 1 tablet by mouth at bedtime Carvedilol 6.25 Mg Tablet (Carvedilol) ..... Take 1 tablet by mouth twice daily Aspirin 81 Mg Tablet,chewable (Aspirin) ..... Take 1 tablet once a day Maura Nolan [id number],C,C omplaing of SOB with minimal exertion and excessive faitgue. Pt denies chest pain. Echo showed normal EF. Due to hx of severe CAD and his symptoms, will obtain R/L cardiac cath. Maura Nolan [id number],C,C omplaing of SOB with minimal exertion and excessive faitgue. Pt denies chest pain. Echo showed normal EF. Due to hx of severe CAD and his symptoms, will obtain R/L cardiac cath. His updated medication list for this problem includes: Enalapril Maleate 5 Mg Tablet (Enalapril maleate) ..... Take 1 tablet by mouth at bedtime Carvedilol 6.25 Mg Tablet (Carvedilol) ..... Take 1 tablet by mouth twice daily Hydrochlorothiazide 25 Mg Tablet (Hydrochlorothiazide) ..... Take 3 tablet by mouth once a day Aspirin 81 Mg Tablet,chewable (Aspirin) ..... Take 1 tablet once a day Maura Nolan [id number],C, H is updated medication list for this problem includes: Enalapril Maleate 5 Mg Tablet (Enalapril maleate) ..... Take 1 tablet by mouth every night Metformin 500 Mg Tablet (Metformin) ..... Take 1 tablet twice a day Aspirin 81 Mg Tablet,chewable (Aspirin) ..... Take 1 tablet once a day Maura Nolan [id number],S,O n statin. His updated medication list for this problem includes: Simvastatin 40 Mg Tablet (Simvastatin) ..... Take 1 tablet once a day Maura Nolan [id number],C, B P today: 140/70 P rior BP: 133/79 (04/28/2020) Labs Reviewed: C reat: 1.06 (02/12/2019) C hol: 141 (02/12/2019) HDL: 35 (02/12/2019) LDL: 70 (02/12/2019) T (02/12/2019) His updated medication list for this problem includes: Carvedilol 6.25 Mg Tablet (Carvedilol) ..... Take 1 tablet by mouth twice a day Enalapril Maleate 5 Mg Tablet (Enalapril maleate) ..... Take 1 tablet by mouth every night Hydrochlorothiazide 25 Mg Tablet (Hydrochlorothiazide) ..... Take 3 tablet by mouth once a day Aspirin 81 Mg Tablet,chewable (Aspirin) ..... Take 1 tablet once a day Maura Nolan [id number],C,P t denies SOB and chest pain. Overall doing well. Will obtain a f/u echo and a f/u appointment in a year. H is updated medication list for this problem includes: Carvedilol 6.25 Mg Tablet (Carvedilol) ..... Take 1 tablet by mouth twice a day Brilinta 90 Mg Tablet (Ticagrelor) ..... Take 1 tablet by mouth twice a day Enalapril Maleate 5 Mg Tablet (Enalapril maleate) ..... Take 1 tablet by mouth every night Hydrochlorothiazide 25 Mg Tablet (Hydrochlorothiazide) ..... Take 3 tablet by mouth once a day Aspirin 81 Mg Tablet,chewable (Aspirin) ..... Take 1 tablet once a day Maura Nolan [id number],C,P t denies SOB and chest pain. Overall doing well. Will obtain a f/u echo and a f/u appointment in a year. H is updated medication list for this problem includes: Carvedilol 6.25 Mg Tablet (Carvedilol) ..... Take 1 tablet by mouth twice a day Brilinta 90 Mg Tablet (Ticagrelor) ..... Take 1 tablet by mouth twice a day Enalapril Maleate 5 Mg Tablet (Enalapril maleate) ..... Take 1 tablet by mouth every night Aspirin 81 Mg Tablet,chewable (Aspirin) ..... Take 1 tablet once a day Maura Nolan Cardiology Nathaniel Washington MD Cardiology: H is updated medication list for this problem includes: Enalapril Maleate 5 Mg Tablet (Enalapril maleate) ..... Take 1 tablet by mouth at bedtime Aspirin 81 Mg Tablet,chewable (Aspirin) ..... Take 1 tablet once a day Nathaniel Washington MD Cardiology: H is updated medication list for this problem includes: Enalapril Maleate 5 Mg Tablet (Enalapril maleate) ..... Take 1 tablet by mouth at bedtime Hydrochlorothiazide 25 Mg Tablet (Hydrochlorothiazide) ..... Take 3 tablet by mouth once a day Aspirin 81 Mg Tablet,chewable (Aspirin) ..... Take 1 tablet once a day Nathaniel Washington MD Cardiology: H is updated medication list for this problem includes: Enalapril Maleate 5 Mg Tablet (Enalapril maleate) ..... Take 1 tablet by mouth at bedtime Hydrochlorothiazide 25 Mg Tablet (Hydrochlorothiazide) ..... Take 3 tablet by mouth once a day Aspirin 81 Mg Tablet,chewable (Aspirin) ..... Take 1 tablet once a day BP today: 139/75 P rior BP: 128/78 (07/16/2024) Labs Reviewed: C reat: 1.19 (09/01/2023) C hol: 163 (09/01/2023) HDL: 46 (09/01/2023) LDL: 86 MG/DL (CALC) (09/01/2023) T (09/01/2023) Nathaniel Washington MD Cardiology: H is updated medication list for this problem includes: Rosuvastatin 10 Mg Tablet (Rosuvastatin) ..... Take 1 tablet by mouth every day at night Nathaniel Washington MD Cardiology: H is updated medication list for this problem includes: Enalapril Maleate 5 Mg Tablet (Enalapril maleate) ..... Take 1 tablet by mouth at bedtime Jardiance 10 Mg Tablet (Empagliflozin) ..... Take 1 tablet by mouth once daily Metformin 500 Mg Tablet (Metformin) ..... Take 1 tablet twice a day Aspirin 81 Mg Tablet,chewable (Aspirin) ..... Take 1 tablet once a day Nathaniel Washington MD Cardiology: H is updated medication list for this problem includes: Enalapril Maleate 5 Mg Tablet (Enalapril maleate) ..... Take 1 tablet by mouth at bedtime Hydrochlorothiazide 25 Mg Tablet (Hydrochlorothiazide) ..... Take 3 tablet by mouth once a day Aspirin 81 Mg Tablet,chewable (Aspirin) ..... Take 1 tablet once a day Nathaniel Washington MD Cardiology: H is updated medication list for this problem includes: Enalapril Maleate 5 Mg Tablet (Enalapril maleate) ..... Take 1 tablet by mouth at bedtime Hydrochlorothiazide 25 Mg Tablet (Hydrochlorothiazide) ..... Take 3 tablet by mouth once a day Aspirin 81 Mg Tablet,chewable (Aspirin) ..... Take 1 tablet once a day Nathaniel Washington MD Cardiology: O rders: V enous Doppler Bilateral LE - Reflux (CPT-81292) 9 9215 HIGH 40-54min (CPT-71697) C omplex e/m visit add on (G2211) Nathaniel Washington MD Cardiology:Complains of exertional dyspnea on minimal activity, which is new for him and not improving. He has known CAD with significant risk factors, new onset sxs, I recommend pt undergo stress PET. Orders: C OMPREHENSIVE METABOLIC PANEL, W/EGFR (34225) L IPID PANEL (7600) H EMOGLOBIN A1c (496) C BC (INCLUDES DIFF/PLT) (6399) P ROBNP, N TERMINAL (80130) C RP, high sensitivity (71974) M icroalb/Creatinine Urine, Random (6517) S tress Cardiac PET-CT (86126) m yocardial blood flow (PET) (37914) 9 9215 HIGH 40-54min (CPT-05331) C omplex e/m visit add on (G2211) Nathaniel Washington MD Cardiology Nathaniel Washington MD Cardiology:Complains of exertional dyspnea on minimal activity, which is new for him and not improving. He has known CAD with significant risk factors, new onset sxs, I recommend pt undergo stress PET. Orders: C OMPREHENSIVE METABOLIC PANEL, W/EGFR (40219) L IPID PANEL (7600) H EMOGLOBIN A1c (496) C BC (INCLUDES DIFF/PLT) (6399) P ROBNP, N TERMINAL (38232) C RP, high sensitivity (01605) M icroalb/Creatinine Urine, Random (6517) S tress Cardiac PET-CT (76755) m yocardial blood flow (PET) (09067) 9 9215 HIGH 40-54min (CPT-07640) C omplex e/m visit add on (G2211) His updated medication list for this problem includes: Enalapril Maleate 5 Mg Tablet (Enalapril maleate) ..... Take 1 tablet by mouth at bedtime Hydrochlorothiazide 25 Mg Tablet (Hydrochlorothiazide) ..... Take 3 tablet by mouth once a day Aspirin 81 Mg Tablet,chewable (Aspirin) ..... Take 1 tablet once a day Nathaniel Washington MD Cardiology:Echo 08/11 023 C ONCLUSIONS: 1 . Technically difficult study, limited views secondary to poor acoustic windows. Interpretation is based on available limited v iews. Normal left ventricular systolic function. Normal left ventricular size. Normal left ventricular wall thickness. There is E t o A wave reversal consistent with impaired LV relaxation. E/E': 6.1 Left ventricular ejection fraction is measured at 55 %. 2 . No significant valvular abnormalities. H is updated medication list for this problem includes: Enalapril Maleate 5 Mg Tablet (Enalapril maleate) ..... Take 1 tablet by mouth at bedtime Hydrochlorothiazide 25 Mg Tablet (Hydrochlorothiazide) ..... Take 3 tablet by mouth once a day Aspirin 81 Mg Tablet,chewable (Aspirin) ..... Take 1 tablet once a day Orders: C OMPREHENSIVE METABOLIC PANEL, W/EGFR (37599) L IPID PANEL (7600) H EMOGLOBIN A1c (496) C BC (INCLUDES DIFF/PLT) (6399) P ROBNP, N TERMINAL (66931) C RP, high sensitivity (39172) M icroalb/Creatinine Urine, Random (6517) S tress Cardiac PET-CT (98974) m yocardial blood flow (PET) (31212) 9 9215 HIGH 40-54min (CPT-90045) C omplex e/m visit add on (G221) Nathaniel Washington MD Cardiology: H is updated medication list for this problem includes: Enalapril Maleate 5 Mg Tablet (Enalapril maleate) ..... Take 1 tablet by mouth at bedtime Aspirin 81 Mg Tablet,chewable (Aspirin) ..... Take 1 tablet once a day Orders: C OMPREHENSIVE METABOLIC PANEL, W/EGFR (08925) L IPID PANEL (7600) H EMOGLOBIN A1c (496) C BC (INCLUDES DIFF/PLT) (6399) P ROBNP, N TERMINAL (14598) C RP, high sensitivity (61901) M icroalb/Creatinine Urine, Random (6517) S tress Cardiac PET-CT (09352) m yocardial blood flow (PET) (05922) 9 9215 HIGH 40-54min (CPT-75857) C omplex e/m visit add on (G2211) Nathaniel Washington MD Cardiology: B P today: 128/78 P rior BP: 126/71 (01/23/2024) Labs Reviewed: C reat: 1.19 (09/01/2023) C hol: 163 (09/01/2023) HDL: 46 (09/01/2023) LDL: 86 MG/DL (CALC) (09/01/2023) T (09/01/2023) His updated medication list for this problem includes: Enalapril Maleate 5 Mg Tablet (Enalapril maleate) ..... Take 1 tablet by mouth at bedtime Hydrochlorothiazide 25 Mg Tablet (Hydrochlorothiazide) ..... Take 3 tablet by mouth once a day Aspirin 81 Mg Tablet,chewable (Aspirin) ..... Take 1 tablet once a day Orders: C OMPREHENSIVE METABOLIC PANEL, W/EGFR (06871) L IPID PANEL (7600) H EMOGLOBIN A1c (496) C BC (INCLUDES DIFF/PLT) (6399) P ROBNP, N TERMINAL (39819) C RP, high sensitivity (82364) M icroalb/Creatinine Urine, Random (6503) S tress Cardiac PET-CT (83991) m yocardial blood flow (PET) (49603) 9 9215 HIGH 40-54min (CPT-65230) C omplex e/m visit add on (G2211) Nathaniel Washington MD Cardiology: H is updated medication list for this problem includes: Enalapril Maleate 5 Mg Tablet (Enalapril maleate) ..... Take 1 tablet by mouth at bedtime Aspirin 81 Mg Tablet,chewable (Aspirin) ..... Take 1 tablet once a day [facility] [address] Cardiology: H is updated medication list for this problem includes: Jardiance 10 Mg Tablet (Empagliflozin) ..... Take 1 tablet by mouth once daily Enalapril Maleate 5 Mg Tablet (Enalapril maleate) ..... Take 1 tablet by mouth at bedtime Metformin 500 Mg Tablet (Metformin) ..... Take 1 tablet twice a day Aspirin 81 Mg Tablet,chewable (Aspirin) ..... Take 1 tablet once a day [facility] [address] Cardiology: H is updated medication list for this problem includes: Enalapril Maleate 5 Mg Tablet (Enalapril maleate) ..... Take 1 tablet by mouth at bedtime Hydrochlorothiazide 25 Mg Tablet (Hydrochlorothiazide) ..... Take 3 tablet by mouth once a day Aspirin 81 Mg Tablet,chewable (Aspirin) ..... Take 1 tablet once a day [facility] [address] Cardiology:Pt denies CP or SOB. DId not notice improvement in fatigue after stopping carvedilol [facility] [address] Cardiology:Pt denies CP or SOB. LDL 86. In view of hx of CAD s/p stent placement will start rosuvastatin 10mg daily. H is updated medication list for this problem includes: Rosuvastatin 10 Mg Tablet (Rosuvastatin) ..... Take 1 tablet by mouth every day at [facility] [address] Cardiology: B P today: 123/63 P rior BP: 106/64 (04/25/2023) Labs Reviewed: C reat: 1.06 (02/12/2019) C hol: 141 (02/12/2019) HDL: 35 (02/12/2019) LDL: 70 (02/12/2019) T (02/12/2019) The following medications were removed from the medication list: Carvedilol 3.125 Mg Tablet (Carvedilol) ..... Take 1 tablet by mouth twice daily His updated medication list for this problem includes: Enalapril Maleate 5 Mg Tablet (Enalapril maleate) ..... Take 1 tablet by mouth at bedtime Hydrochlorothiazide 25 Mg Tablet (Hydrochlorothiazide) ..... Take 3 tablet by mouth once a day Aspirin 81 Mg Tablet,chewable (Aspirin) ..... Take 1 tablet once a day Maycol Mccarty Cardiology: H is updated medication list for this problem includes: Enalapril Maleate 5 Mg Tablet (Enalapril maleate) ..... Take 1 tablet by mouth at bedtime Jardiance 10 Mg Tablet (Empagliflozin) ..... Take 1 tablet by mouth once a day Metformin 500 Mg Tablet (Metformin) ..... Take 1 tablet twice a day Aspirin 81 Mg Tablet,chewable (Aspirin) ..... Take 1 tablet once a day Maycol Mccaryt Cardiology: T he following medications were removed from the medication list: Carvedilol 3.125 Mg Tablet (Carvedilol) ..... Take 1 tablet by mouth twice daily His updated medication list for this problem includes: Enalapril Maleate 5 Mg Tablet (Enalapril maleate) ..... Take 1 tablet by mouth at bedtime Hydrochlorothiazide 25 Mg Tablet (Hydrochlorothiazide) ..... Take 3 tablet by mouth once a day Aspirin 81 Mg Tablet,chewable (Aspirin) ..... Take 1 tablet once a day Maycol Mccarty Cardiology:Still com plaining of fatigue, we will stop carvedilol today. Will obtain f/u echo he will resume allopurinol for his gout. We will obtain lab work Maycol Mccarty Cardiology: D iet controlled Nathaniel Washington MD Cardiology: T he following medications were removed from the medication list: Brilinta 90 Mg Tablet (Ticagrelor) ..... Take 1 tablet by mouth twice daily His updated medication list for this problem includes: Carvedilol 3.125 Mg Tablet (Carvedilol) ..... Take 1 tablet by mouth twice daily Enalapril Maleate 5 Mg Tablet (Enalapril maleate) ..... Take 1 tablet by mouth at bedtime Hydrochlorothiazide 25 Mg Tablet (Hydrochlorothiazide) ..... Take 3 tablet by mouth once a day Aspirin 81 Mg Tablet,chewable (Aspirin) ..... Take 1 tablet once a day Pt denies SOB and chest pain. Overall doing well. Nathaniel Washington MD Cardiology: H is updated medication list for this problem includes: Enalapril Maleate 5 Mg Tablet (Enalapril maleate) ..... Take 1 tablet by mouth at bedtime Jardiance 10 Mg Tablet (Empagliflozin) ..... Take 1 tablet by mouth once a day Metformin 500 Mg Tablet (Metformin) ..... Take 1 tablet twice a day Aspirin 81 Mg Tablet,chewable (Aspirin) ..... Take 1 tablet once a day Nathaniel Washington MD Cardiology: B P today: 106/64 P rior BP: 128/69 (10/25/2022) Labs Reviewed: C reat: 1.06 (02/12/2019) C hol: 141 (02/12/2019) HDL: 35 (02/12/2019) LDL: 70 (02/12/2019) T (02/12/2019) His updated medication list for this problem includes: Carvedilol 6.25 Mg Tablet (Carvedilol) ..... Take 1 tablet by mouth twice daily Enalapril Maleate 5 Mg Tablet (Enalapril maleate) ..... Take 1 tablet by mouth at bedtime Hydrochlorothiazide 25 Mg Tablet (Hydrochlorothiazide) ..... Take 3 tablet by mouth once a day Aspirin 81 Mg Tablet,chewable (Aspirin) ..... Take 1 tablet once a day Orders: 9 9214 MOD 30-39min (CPT-73553) R PM (remote patient monitoring) (03559) Nathaniel Washington MD Cardiology: P t presented to [facility] with chest discomfort, ruled in for FL, and stent was placed in the mid LAD. Nathaniel Washington MD Cardiology: P t reports improvement with Jardiance, however still SOB CHF class III. PFTs were normal. He would liek [facility]. T he following medications were removed from the medication list: Brilinta 90 Mg Tablet (Ticagrelor) ..... Take 1 tablet by mouth twice daily His updated medication list for this problem includes: Carvedilol 3.125 Mg Tablet (Carvedilol) ..... Take 1 tablet by mouth twice daily Enalapril Maleate 5 Mg Tablet (Enalapril maleate) ..... Take 1 tablet by mouth at bedtime Hydrochlorothiazide 25 Mg Tablet (Hydrochlorothiazide) ..... Take 3 tablet by mouth once a day Aspirin 81 Mg Tablet,chewable (Aspirin) ..... Take 1 tablet once a day Juan Olivier Cardiology: P t denies any chest pain. T he following medications were removed from the medication list: Brilinta 90 Mg Tablet (Ticagrelor) ..... Take 1 tablet by mouth twice daily & #13;His updated medication list for this problem includes: Carvedilol 3.125 Mg Tablet (Carvedilol) ..... Take 1 tablet by mouth twice daily Enalapril Maleate 5 Mg Tablet (Enalapril maleate) ..... Take 1 tablet by mouth at bedtime Aspirin 81 Mg Tablet,chewable (Aspirin) ..... Take 1 tablet once a day Juan Olivier Cardiology:Pt report s improvement with Jardiance, however still SOB CHF class III. PFTs were normal. He would liek to [facility]iticpate [facility] trial. H is updated medication list for this problem includes: Enalapril Maleate 5 Mg Tablet (Enalapril maleate) ..... Take 1 tablet by mouth at bedtime Carvedilol 6.25 Mg Tablet (Carvedilol) ..... Take 1 tablet by mouth twice daily Hydrochlorothiazide 25 Mg Tablet (Hydrochlorothiazide) ..... Take 3 tablet by mouth once a day Aspirin 81 Mg Tablet,chewable (Aspirin) ..... Take 1 tablet once a day Maura oNlan Cardiology: H is updated medication list for this problem includes: Enalapril Maleate 5 Mg Tablet (Enalapril maleate) ..... Take 1 tablet by mouth at bedtime Jardiance 10 Mg Tablet (Empagliflozin) ..... Take 1 tablet by mouth once a day Metformin 500 Mg Tablet (Metformin) ..... Take 1 tablet twice a day Aspirin 81 Mg Tablet,chewable (Aspirin) ..... Take 1 tablet once a day Maura Nolan Cardiology: D iet controlled Maura Nolan Cardiology: B P today: 128/69 P rior BP: 142/76 (07/26/2022) Labs Reviewed: C reat: 1.06 (02/12/2019) C hol: 141 (02/12/2019) HDL: 35 (02/12/2019) LDL: 70 (02/12/2019) T (02/12/2019) His updated medication list for this problem includes: Enalapril Maleate 5 Mg Tablet (Enalapril maleate) ..... Take 1 tablet by mouth at bedtime Carvedilol 6.25 Mg Tablet (Carvedilol) ..... Take 1 tablet by mouth twice daily Hydrochlorothiazide 25 Mg Tablet (Hydrochlorothiazide) ..... Take 3 tablet by mouth once a day Aspirin 81 Mg Tablet,chewable (Aspirin) ..... Take 1 tablet once a day Maura Nolan Cardiology:Pt denies any chest pain. His updated medication list for this problem includes: Brilinta 90 Mg Tablet (Ticagrelor) ..... Take 1 tablet by mouth twice daily Enalapril Maleate 5 Mg Tablet (Enalapril maleate) ..... Take 1 tablet by mouth at bedtime Carvedilol 6.25 Mg Tablet (Carvedilol) ..... Take 1 tablet by mouth twice daily Aspirin 81 Mg Tablet,chewable (Aspirin) ..... Take 1 tablet once a day Maura An Cardiology:Pt report s improvement with Jardiance, however still SOB CHF class III. PFTs were normal. [facility]. H is updated medication list for this problem includes: Brilinta 90 Mg Tablet (Ticagrelor) ..... Take 1 tablet by mouth twice daily Enalapril Maleate 5 Mg Tablet (Enalapril maleate) ..... Take 1 tablet by mouth at bedtime Carvedilol 6.25 Mg Tablet (Carvedilol) ..... Take 1 tablet by mouth twice daily Hydrochlorothiazide 25 Mg Tablet (Hydrochlorothiazide) ..... Take 3 tablet by mouth once a day Aspirin 81 Mg Tablet,chewable (Aspirin) ..... Take 1 tablet once a day Maura Nolan Cardiology: He is pl anned for surgery, he is cleared for surgery from cardiovascular perspective. H is updated medication list for this problem includes: Brilinta 90 Mg Tablet (Ticagrelor) ..... Take 1 tablet by mouth twice daily Enalapril Maleate 5 Mg Tablet (Enalapril maleate) ..... Take 1 tablet by mouth at bedtime Carvedilol 6.25 Mg Tablet (Carvedilol) ..... Take 1 tablet by mouth twice daily Aspirin 81 Mg Tablet,chewable (Aspirin) ..... Take 1 tablet once a day Maura Nolan Cardiology: EF prese rved. LVEDP was elevated consistent with HFpEF. Will try Jardiance 10 mg . Will obtain PFTs for non cardiovascular cause of SOB. He is planned for surgery, he is cleared for surgery from cardiovascular perspective. Maura Nolan Cardiology: EF prese rved. LVEDP was elevated consistent with HFpEF. Will try Jardiance 10 mg . Will obtain PFTs for non cardiovascular cause of SOB. H is updated medication list for this problem includes: Enalapril Maleate 5 Mg Tablet (Enalapril maleate) ..... Take 1 tablet by mouth at bedtime Carvedilol 6.25 Mg Tablet (Carvedilol) ..... Take 1 tablet by mouth twice daily Hydrochlorothiazide 25 Mg Tablet (Hydrochlorothiazide) ..... Take 3 tablet by mouth once a day Aspirin 81 Mg Tablet,chewable (Aspirin) ..... Take 1 tablet once a day Maura Nolan Cardiology:Cardiac c ath revealed no significant coronary stenosis. EF preserved. LVEDP was elevated consistent with HFpEF. Will try Jardiance 10 mg . H is updated medication list for this problem includes: Brilinta 90 Mg Tablet (Ticagrelor) ..... Take 1 tablet by mouth twice daily Enalapril Maleate 5 Mg Tablet (Enalapril maleate) ..... Take 1 tablet by mouth at bedtime Carvedilol 6.25 Mg Tablet (Carvedilol) ..... Take 1 tablet by mouth twice daily Aspirin 81 Mg Tablet,chewable (Aspirin) ..... Take 1 tablet once a day Maura Nolan Cardiology: H is updated medication list for this problem includes: Jardiance 10 Mg Tablet (Empagliflozin) ..... Take 1 tablet by mouth once a day Enalapril Maleate 5 Mg Tablet (Enalapril maleate) ..... Take 1 tablet by mouth at bedtime Metformin 500 Mg Tablet (Metformin) ..... Take 1 tablet twice a day Aspirin 81 Mg Tablet,chewable (Aspirin) ..... Take 1 tablet once a day Nathaniel Washington MD Cardiology: D iet controlled Nathaniel Washington MD Cardiology: B P today: 142/76 P rior BP: 114/58 (05/24/2022) Labs Reviewed: C reat: 1.06 (02/12/2019) C hol: 141 (02/12/2019) HDL: 35 (02/12/2019) LDL: 70 (02/12/2019) T (02/12/2019) His updated medication list for this problem includes: Enalapril Maleate 5 Mg Tablet (Enalapril maleate) ..... Take 1 tablet by mouth at bedtime Carvedilol 6.25 Mg Tablet (Carvedilol) ..... Take 1 tablet by mouth twice daily Hydrochlorothiazide 25 Mg Tablet (Hydrochlorothiazide) ..... Take 3 tablet by mouth once a day Aspirin 81 Mg Tablet,chewable (Aspirin) ..... Take 1 tablet once a day Nathaniel Washington MD Cardiology: H is updated medication list for this problem includes: Enalapril Maleate 5 Mg Tablet (Enalapril maleate) ..... Take 1 tablet by mouth at bedtime Metformin 500 Mg Tablet (Metformin) ..... Take 1 tablet twice a day Aspirin 81 Mg Tablet,chewable (Aspirin) ..... Take 1 tablet once a day Maura Nolan Cardiology: B P today: 114/58 P rior BP: 140/70 (05/25/2021) Labs Reviewed: C reat: 1.06 (02/12/2019) C hol: 141 (02/12/2019) HDL: 35 (02/12/2019) LDL: 70 (02/12/2019) T (02/12/2019) His updated medication list for this problem includes: Enalapril Maleate 5 Mg Tablet (Enalapril maleate) ..... Take 1 tablet by mouth at bedtime Carvedilol 6.25 Mg Tablet (Carvedilol) ..... Take 1 tablet by mouth twice daily Hydrochlorothiazide 25 Mg Tablet (Hydrochlorothiazide) ..... Take 3 tablet by mouth once a day Aspirin 81 Mg Tablet,chewable (Aspirin) ..... Take 1 tablet once a day Maura Nolan Cardiology:Complaing of SOB with minimal exertion and excessive faitgue. Pt denies chest pain. Echo showed normal EF. Due to hx of severe CAD and his symptoms, will obtain R/L cardiac cath. H is updated medication list for this problem includes: Brilinta 90 Mg Tablet (Ticagrelor) ..... Take 1 tablet by mouth twice daily Enalapril Maleate 5 Mg Tablet (Enalapril maleate) ..... Take 1 tablet by mouth at bedtime Carvedilol 6.25 Mg Tablet (Carvedilol) ..... Take 1 tablet by mouth twice daily Aspirin 81 Mg Tablet,chewable (Aspirin) ..... Take 1 tablet once a day Maura Carrasquillolatisha Cardiology:Complaing of SOB with minimal exertion and excessive faitgue. Pt denies chest pain. Echo showed normal EF. Due to hx of severe CAD and his symptoms, will obtain R/L cardiac cath. Maura Carrasquillosdgood Cardiology:Complaing of SOB with minimal exertion and excessive faitgue. Pt denies chest pain. Echo showed normal EF. Due to hx of severe CAD and his symptoms, will obtain R/L cardiac cath. H is updated medication list for this problem includes: Enalapril Maleate 5 Mg Tablet (Enalapril maleate) ..... Take 1 tablet by mouth at bedtime Carvedilol 6.25 Mg Tablet (Carvedilol) ..... Take 1 tablet by mouth twice daily Hydrochlorothiazide 25 Mg Tablet (Hydrochlorothiazide) ..... Take 3 tablet by mouth once a day Aspirin 81 Mg Tablet,chewable (Aspirin) ..... Take 1 tablet once a day Maura Jacobslatisha Cardiology: H is updated medication list for this problem includes: Enalapril Maleate 5 Mg Tablet (Enalapril maleate) ..... Take 1 tablet by mouth every night Metformin 500 Mg Tablet (Metformin) ..... Take 1 tablet twice a day Aspirin 81 Mg Tablet,chewable (Aspirin) ..... Take 1 tablet once a day Maura Jacobslatisha Cardiology:On statin . His updated medication list for this problem includes: Simvastatin 40 Mg Tablet (Simvastatin) ..... Take 1 tablet once a day Maura Jacobslatisha Cardiology: B P today: 140/70 P rior BP: 133/79 (04/28/2020) Labs Reviewed: C reat: 1.06 (02/12/2019) C hol: 141 (02/12/2019) HDL: 35 (02/12/2019) LDL: 70 (02/12/2019) T (02/12/2019) His updated medication list for this problem includes: Carvedilol 6.25 Mg Tablet (Carvedilol) ..... Take 1 tablet by mouth twice a day Enalapril Maleate 5 Mg Tablet (Enalapril maleate) ..... Take 1 tablet by mouth every night Hydrochlorothiazide 25 Mg Tablet (Hydrochlorothiazide) ..... Take 3 tablet by mouth once a day Aspirin 81 Mg Tablet,chewable (Aspirin) ..... Take 1 tablet once a day Maura Nolan Cardiology:Pt denies SOB and chest pain. Overall doing well. Will obtain a f/u echo and a f/u appointment in a year. H is updated medication list for this problem includes: Carvedilol 6.25 Mg Tablet (Carvedilol) ..... Take 1 tablet by mouth twice a day Brilinta 90 Mg Tablet (Ticagrelor) ..... Take 1 tablet by mouth twice a day Enalapril Maleate 5 Mg Tablet (Enalapril maleate) ..... Take 1 tablet by mouth every night Hydrochlorothiazide 25 Mg Tablet (Hydrochlorothiazide) ..... Take 3 tablet by mouth once a day Aspirin 81 Mg Tablet,chewable (Aspirin) ..... Take 1 tablet once a day Maura Nolan Cardiology:Pt denies SOB and chest pain. Overall doing well. Will obtain a f/u echo and a f/u appointment in a year. H is updated medication list for this problem includes: Carvedilol 6.25 Mg Tablet (Carvedilol) ..... Take 1 tablet by mouth twice a day Brilinta 90 Mg Tablet (Ticagrelor) ..... Take 1 tablet by mouth twice a day Enalapril Maleate 5 Mg Tablet (Enalapril maleate) ..... Take 1 tablet by mouth every night Aspirin 81 Mg Tablet,chewable (Aspirin) ..... Take 1 tablet once a day Maura Nolan Cardiology:Labs Revi ewed: H gBA1c: 8.4 (02/11/2019) Creat: 1.06 (02/12/2019) His updated medication list for this problem includes: Metformin Hcl 500 Mg Oral Tablet (Metformin hcl) ..... Take 1 tablet twice a day Enalapril 5mg Tab (Enalapril maleate) ..... Take 1 tablet by mouth at bedtime Aspirin Low Strength 81 Mg Oral Tablet Chewable (Aspirin) ..... Take 1 tablet daily [facility] Cardiology:His upd ed medication list for this problem includes: Simvastatin 40 Mg Oral Tablet (Simvastatin) ..... Take one tablet daily [facility] Cardiology:BP today: 133/79 P rior BP: 120/62 (03/14/2019) His updated medication list for this problem includes: Enalapril 5mg Tab (Enalapril maleate) ..... Take 1 tablet by mouth at bedtime Hydrochlorothiazide 25 Mg Oral Tablet (Hydrochlorothiazide) ..... Take 3 tablets by mouth once daily Carvedilol 6.25 Mg Oral Tablet (Carvedilol) ..... Take 1 tablet by mouth twice daily [facility] Cardiology:No sympto ms. EF improved to 55%. He's a candidate for lithotripsy and is clear from cardiovascular perspective. He can hold ASA/Brilinta as needed. His updated medication list for this problem includes: Enalapril 5mg Tab (Enalapril maleate) ..... Take 1 tablet by mouth at bedtime Brilinta 90 Mg Oral Tablet (Ticagrelor) ..... Take 1 tablet twice daily Aspirin Low Strength 81 Mg Oral Tablet Chewable (Aspirin) ..... Take 1 tablet daily Carvedilol 6.25 Mg Oral Tablet (Carvedilol) ..... Take 1 tablet by mouth twice daily [facility] Cardiology:No sympto ms. EF improved to 55%. His updated medication list for this problem includes: Enalapril 5mg Tab (Enalapril maleate) ..... Take 1 tablet by mouth at bedtime Hydrochlorothiazide 25 Mg Oral Tablet (Hydrochlorothiazide) ..... Take 3 tablets by mouth once daily Carvedilol 6.25 Mg Oral Tablet (Carvedilol) ..... Take 1 tablet by mouth twice daily [facility] follow up :His updated medication list for this problem includes: Metformin Hcl 500 Mg Oral Tablet (Metformin hcl) ..... Take 1 tablet twice a day Enalapril Maleate 5 Mg Oral Tablet (Enalapril maleate) ..... Take 1 tablet at bedtime Aspirin Low Strength 81 Mg Oral Tablet Chewable (Aspirin) ..... Take 1 tablet daily [facility] follow up :His updated medication list for this problem includes: Simvastatin 40 Mg Oral Tablet (Simvastatin) ..... Take one tablet daily [facility] follow up :BP today: 120/62 His updated medication list for this problem includes: Enalapril Maleate 5 Mg Oral Tablet (Enalapril maleate) ..... Take 1 tablet at bedtime Hydrochlorothiazide 25 Mg Oral Tablet (Hydrochlorothiazide) ..... Take 3 tablets by mouth once daily Carvedilol 6.25 Mg Oral Tablet (Carvedilol) ..... Take 1 tablet by mouth twice daily [facility] follow up :Pt presented to [facility] with chest discomfort, ruled in for FL, and stent was placed in the mid LAD. EF was 35%. He's feeling much better and denies chest pain. Will obtain an echo in early April. If EF is low, we will consider AICD. If EF is recovered, we will consider him for the Biog[employer]-FL trial. His updated medication list for this problem includes: Enalapril Maleate 5 Mg Oral Tablet (Enalapril maleate) ..... Take 1 tablet at bedtime Hydrochlorothiazide 25 Mg Oral Tablet (Hydrochlorothiazide) ..... Take 3 tablets by mouth once daily Carvedilol 6.25 Mg Oral Tablet (Carvedilol) ..... Take 1 tablet by mouth twice daily [facility] follow up :Pt presented to [facility] with chest discomfort, ruled in for FL, and stent was placed in the mid LAD. EF was 35%. He's feeling much better and denies chest pain. His updated medication list for this problem includes: Enalapril Maleate 5 Mg Oral Tablet (Enalapril maleate) ..... Take 1 tablet at bedtime Brilinta 90 Mg Oral Tablet (Ticagrelor) ..... Take 1 tablet twice daily Aspirin Low Strength 81 Mg Oral Tablet Chewable (Aspirin) ..... Take 1 tablet daily Carvedilol 6.25 Mg Oral Tablet (Carvedilol) ..... Take 1 tablet by mouth twice daily [facility] follow up :Pt presented to [facility] with chest discomfort, ruled in for FL, and stent was placed in the mid LAD. Joselito Lewis Date Name Venous Doppler Bilat eral LE - Reflux myocardial blood pamela w (PET) Stress Cardiac PET-C T Microalb/Creatinine Urine, Random CRP, high sensitivit y PROBNP, N TERMINAL CBC (INCLUDES DIFF/P LT) HEMOGLOBIN A1c LIPID PANEL COMPREHENSIVE METABO LIC PANEL, W/EGFR RPM (remote patient monitoring) CRP, high sensitivit y LIPID PANEL Lipoprotein (a) PROBNP, N TERMINAL BASIC METABOLIC PANE L W/EGFR Microalb/Creatinine Urine, Random HEMOGLOBIN A1c BASIC METABOLIC PANE L W/EGFR Complete Echo RPM (remote patient monitoring) DLCO - 23862 FRC - 43054 FVC - 42103 RPM (remote patient monitoring) PROTHROMBIN TIME WIT H INR LIPID PANEL CBC (INCLUDES DIFF/P LT) BASIC METABOLIC PANE L W/EGFR Cardiac Cath - L/R - GC Complete Echo Complete Echo HISTORY OF PROCEDURES Procedure Date Procedure Name Provider Procedure Notes S tatus Complex e/m visit add on Nathaniel Washington MD completed Complex e/m visit add on Nathaniel Washington MD [ 07/17/2024 [facility] MEDICARE completed EKG Nathaniel Washington MD completed Spirometry Nathaniel Washington MD completed FVC / MVV with bronchodilator - [id number] Nathaniel Washington MD completed FRC - 43563 Nathaniel Washington MD completed SpO2 w/o 6min walk/titration Nathaniel Washington MD completed SVC - 18386 Nathaniel Washington MD completed DLCO - 66590 Nathaniel Washington MD complete d EKG Nathaniel Washington MD completed EKG Nathaniel Washington MD completed EKG Nathaniel Washington MD completed
--- OUTSIDE RECORDS SUMMARY | 2025-01-08 15:39 | XMS_ITS | Encounter Summary ---
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 Date/Time Encounter Type Encounter Description Reason Provider Source Dec 13, 2024 01:00 PM OFFICE O/P NEW DC 60 MIN PRIMARY CARE/MEDICINE ICD-10-CM G20.C Parkinsonism, unspecified MAURO NEVAREZ [facility] Encounter Template Text not used by [place] Assessments - Encounter Diagnoses This section includes the primary and secondary diagnoses documented for the Encounter. 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 MAURO NEVAREZ [facility] Dec 13, 2024 02:10 PM SECONDARY Contact with and exposure to other hazardous substances MAURO NEVAREZ [facility] Dec 13, 2024 02:10 PM SECONDARY Encounter for immunization MAURO NEVAREZ [facility] Dec 13, 2024 02:10 PM SECONDARY Gout, unspecified MAURO NEVAREZ [facility] Dec 13, 2024 02:10 PM SECONDARY Type 2 diabetes mellitus with unspecified complications MAURO NEVAREZ [facility] Plan of Treatment: Future Appointments (+ 6 months) and Future Tests (+/- 45 days) The Plan of Treatment section includes future care activities for the patient from all [place] [facility]. This section includes future appointments and future orders which are active, pending or scheduled. Future Appointments This section includes appointments that were scheduled to occur 6 months from the date of the Encounter, up to a maximum of 20 appointments. The data comes from all [place] treatment facilities. Appointment Date/Time Appointment Type Appointme nt Facility Name February 08, 2025 02:00 PM AMBULATORY - SURGERY [facility] Lab Results: +/- 30 days of the encounter This section includes the Chemistry and Hematology Lab Results on record with [place] for the patient. Radiology Reports and Pathology Reports are provided separately, in subsequent sections. Lab Results This section contains the Chemistry/Hematology Results that were resulted 30 days before or 30 daysafter the date of the Encounter. Date/Time Source Result Type Result - Unit Interpretation Reference Range Comment Dec 13, 2024 02:32 PM [facility] COMPREHENSIVE METABOLIC PANEL Specimen Type: PLASMA Comment: No hemolysis noted. Ordering Provider: BLANE NEVAREZ Report Released Date/Time: Dec 13, 2024 01:57 PM Reporting Lab: [facility] [id number] Performing Lab: [facility] [address] CREATININE 1.26 mg/dL 0.70-1.30 UREA NITROGEN 22.4 mg/dL 9.0-25.0 GLUCOSE 119 mg/dL H 72-99 SODIUM 143 meq/L 136-145 POTASSIUM 4.7 meq/L 3.5-5.0 CHLORIDE 105 meq/L 98-107 CARBON DIOXIDE 28 meq/L 22-31 CALCIUM 9.6 mg/dL 8.4-10.4 PROTEIN 7.5 g/dL 6.0-8.6 ALBUMIN 4.6 g/dL 3.4-5.0 TOTAL BILIRUBIN 0.5 mg/dL 0.2-1.2 ALKALINE PHOSPHATASE 80 U/L 40-150 AST/SGOT 17 U/L 5-34 ALT/SGPT <7 U/L L 8-40 EGFR (CKD-EPI 2020) 58.38 >60 Dec 13, 2024 02:32 PM [facility] CBC Specimen Type: BLOOD No comment entered. Ordering Provider: BLANE NEVAREZ Report Released Date/Time: Dec 13, 2024 01:57 PM Reporting Lab: [facility] [id number] Performing Lab: [facility] [address] WBC 10.3 10*3/uL 3.6-11.2 RBC 4.69 10*6/uL 4.10-5.70 HGB 14.2 g/dL 13.1-16.8 HCT 44.7 38.2-48.4 MCV 95.3 fL 80.0-100.0 MCH 30.3 pg 27.0-34.0 MCHC 31.8 g/dL L 33.0-36.0 PLT 239 10*3/uL 150-400 MPV 10.4 fL 7.5-11.2 RDW 13.4 11.8-15.1 LYMPHOCYTES, AUTO % 19 MONOCYTES, AUTO % 7 NEUTROPHILS, AUTO % 72 EOSINOPHILS, AUTO % 1 BASOPHILS, AUTO % 1 LYMPHOCYTES, ABSOLUTE 1.96 10*3/uL 0.77-4.50 MONOCYTES, ABSOLUTE 0.69 10*3/uL 0.19-0.80 NEUTROPHILS, ABSOLUTE 7.36 10*3/uL 2.10-8.00 EOSINOPHILS, ABSOLUTE 0.13 10*3/uL 0.00-0.60 BASOPHILS, ABSOLUTE 0.10 10*3/uL 0.00-0.20 Dec 13, 2024 02:32 PM [facility] HGA1C Specimen Type: BLOOD No comment entered. Ordering Provider: BLANE NEVAREZ Report Released Date/Time: Dec 13, 2024 01:57 PM Reporting Lab: [facility] [address] Performing Lab: [facility] [address] HGA1C 6.1 H 4.0-6.0 Vital Signs: All taken on the encounter date This section contains inpatient and outpatient Vital Signs collected on the date of the Encounter. Date/Time Temperature Pulse Blood Pressure Respiratory Rate SP02 Pain Height Weight Body Mass Index Source Dec 13, 2024 01:05 PM 98 81 112/72 18 95 5 67 210.4 33 [facility] Immunizations: All administered on the encounter date This section contains immunizations associated to the Encounter. Immunization Series Date Issued Reaction Comments COVID-19 (PFIZER), MRNA, LNP -S, PF, NICK-SUCROSE, 30 MCG/0.3 ML (AGES 12+ YEARS) Dec 13, 2024 Social History: Smoking Status (Most current) and Tobacco Use (All prior to encounter date) This section includes the most current, and the historical, smoking and tobacco- related health factors from the [place] facility where the Encounter took place. Current Smoking Status This section includes the most current smoking, or tobacco-related health factor, from the [place] facility where the Encounter took place. Date/Time Current Smoking Status Comment Facil ity Dec 13, 2024 01:00 PM [place]-TOBACCO NEVER U SED CIGARETTES [facility] Tobacco Use History This section includes a history of the smoking, or tobacco-related health factors, that were collected on or before the date of the Encounter. The data comes from the [place] facility where the Encounter took place. Date/Time Smoking Status/Tobacco Use Comment F acility Dec 13, 2024 01:00 PM [place]-TOBACCO NEVER U SED OTHER TYPE [facility] Encounter Notes: All associated encounter notes This section contains the clinical notes associated to the Encounter. Date/Time Encounter Note(s) Provider Source Dec 13, 2024 04:09 PM PHYSICIAN LETTERS: LOCAL TITLE: TEST RESULT GENERAL LETTER STL STANDARD TITLE: PHYSICIAN LETTERS DATE OF NOTE: DEC 13, 2024@16:09 ENTRY DATE: DEC 13, 2024@16:09:05 AUTHOR: KAREN NEVAREZ EXP COSIGNER: URGENCY: STATUS: COMPLETED [facility] [address] [place] [address] DEC 13, 2024 STEFAN STEVENSON [address] [place], [place] [address] Dear Stefan Stevenson, I would like to update you on your recent test results. HEMOGLOBIN A1C - Gives us information about your diabetes (sugar or glucose) control over the past 3 months. Your target is to keep your A1C below 7 %. HGA1C 6.1 H % 12/13/2024 14:32 These readings are within normal limits. Excellent. CBC - A complete blood count (CBC) gives important information about the kinds and numbers of cells in the blood, especially red blood cells, white blood cells, and platelets. HGB 14.2 g/dL 12/13/2024 14:32 HEMATOCRIT 44.7 % (12/13/24 14:32) PLT 239 10*3/uL 12/13/2024 14:32 WHITE BLOOD COUNT 10.3 10*3/uL (12/13/24 14:32) These readings are within normal limits. CHEM 7 - This is important information about the current status of your kidneys, liver, and electrolyte and acid/base balance as well as of your blood sugar and blood proteins. SODIUM 143 mEq/L 12/13/2024 14:32 POTASSIUM 4.7 mEq/L 12/13/2024 14:32 CHLORIDE 105 mEq/L 12/13/2024 14:32 UREA NITROGEN 22.4 mg/dL 12/13/2024 14:32 CREATININE 1.26 mg/dL 12/13/2024 14:32 CALCIUM 9.6 mg/dL 12/13/2024 14:32 CARBON DIOXIDE 28 mEq/L 12/13/2024 14:32 GLUCOSE 119 H mg/dL 12/13/2024 14:32 EGFR (CKD-EPI 2020) 58.38 12/13/2024 14:32 These readings are within normal limits. LIVER FUNCTION PANEL - These are tests for liver function: PROTEIN 7.5 g/dL 12/13/2024 14:32 ALBUMIN 4.6 g/dL 12/13/2024 14:32 TOTAL BILIRUBIN 0.5 mg/dL 12/13/2024 14:32 ALKALINE PHOSPHATASE 80 U/L 12/13/2024 14:32 AST/SGOT 17 U/L 12/13/2024 14:32 ALT/SGPT <7 L U/L 12/13/2024 14:32 These readings are within normal limits. FUTURE APPOINTMENTS: 02/08/2025 14:00 MAXIMINO-OPTOMETRY 1 12/09/2025 14:30 MAXIMINO-PACT E5 PCP Sincerely, KAREN NEVAREZ Staff Physician STEFAN STEVENSON KRISTINA L 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 Dec 13, 2024 01:07 PM NURSING NOTE: LOCAL TITLE: V15 PACT FACE TO FACE NOTE STL STANDARD TITLE: NURSING NOTE DATE OF NOTE: DEC 13, 2024@13:07 ENTRY DATE: DEC 13, 2024@13:07:39 AUTHOR: KIERA MÁRQUEZ EXP COSIGNER: URGENCY: STATUS: COMPLETED Provider Visit: Patient Identifiers : Full Name Date of Reason for visit: Established Follow-Up Mode of Arrival: Assistive Device: walking stick Allergy Review: Patient has answered NKA Allergy list reviewed and remains current. Recent Vital Signs: Temperature: 98 F [36.7 C] (12/13/2024 13:05) Pulse: 81 (12/13/2024 13:05) Respiration: 18 (12/13/2024 13:05) B/P: 112/72 (12/13/2024 13:05) Pain: 5 (12/13/2024 13:05) Wt: 210.4 lb [95.44 kg] (12/13/2024 13:05) Ht: 67 in [170.2 cm] (12/13/2024 13:05) BMI: 33.0 POX: 95% (12/13/2024 13:05) Would you like to discuss any personal problem, family problem, alcohol use, drug use, or a mental or emotional illness? No Contact provided Primary Care phone number and encouraged to call if any questions or concerns. Review that after hours nurse line [phone] and emergency room are available 02/05 for patient use. Contact verbalized good understanding. Homelessness/Food Insecurity Screen - DI,L,N,P,PH,PS,S,U: In the past 2 months, have you been living in stable housing that you own, rent, or stay in as part of a household? Yes - Living in stable housing. Are you worried or concerned that in the next 2 months you may NOT have stable housing that you own, rent, or stay in as part of a household? No - Not worried about housing near future The reports the following: Within the past 12 months, you worried whether your food would run out before you got money to buy more. Never true Within the past 12 months, the food you bought just didn't last and you didn't have money to get more. Never true Toxic Exposure Screening: The Tie Siding/caregiver was asked if they believe the Tie Siding experienced any toxic exposure(s), such as Airborne Hazards and Open Burn [place], [place] War related exposures, Agent [place], Radiation, contaminated water at [place] or other such exposures, while serving in the [employer]. /caregiver believes the [place] was exposed to the following while serving in the [employer]: Agent [place]: /caregiver was made aware of educational resources that includes information on the Registry Program, presumptive conditions and how to file a claim. Printed information was offered and provided if desired. No questions at this time /caregiver was informed of local points of contact. Contact information for local resources: [facility] Registry Exam Program: [phone] Eligibility: [phone] [id number] Toxic Exposure Screening Follow-Up reminder is needed. Name of person notified: Dr. Nevarez Frail/Elderly Screen: ADL Screen - [place] Index of [place] in Activities of Daily Living Bathing: (3 Points) Receives no assistance (gets in and out of tub by self, if tub is usual means of bathing) Dressing: (2 Points) Gets clothes and gets dressed without assistance, except for assistance with tying shoes. Toileting: (3 Points) Goes to toilet room , cleans self, and arranges clothes without assistance (may use object for support such as cane, walker, or wheelchair, and may manage own night bedpan or commode, emptying same next morning) Transferring: (3 Points) Moves in and out of bed and in and out of chair without assistance (may be using object for support, such as cane or walker) Continence: (3 Points) Controls urination and bowel movement completely by self Feeding: (3 Points) Feeds self without assistance Total Score: 18 Points 18 = High (patient independent) 6 = Low (patient very dependent) IADL Screen - [place] Instrumental Activities of Daily Living Scale Ability to use telephone: (1 point) Dials a few well-known numbers. Shopping: (0 points) Completely unable to shop. Food preparation: (0 points) Heats and serves prepared meals, or prepares meals but does not maintain adequate diet. Housekeeping: (1 point) Performs light daily tasks, but cannot maintain acceptable level of cleanliness. Laundry: (0 points) All laundry must be done by others. Mode of transportation: (0 points) Travel limited to taxi or automobile with assistance of another. Responsibility for own medications: (0 points) Is not capable of dispensing own medication. Ability to handle finances: (0 points) Incapable of handling money. Total score: 8 = High function, independent 0 = Low function, dependent Falls Screen: Two or more falls within the last 12 months. Incontinence Screen: No incontinence. Learning Assessment: - * This patient's learning ABILITIES, BARRIERS to learning, CULTURAL and QUAKER beliefs, and learning PREFERENCES were assessed. Following are findings of note: Patient reads well. Patient has the following hearing/auditory barrier(s) to consider when teaching: Otherringing of ears Adjustments made to address the identified barrier include: Other N/A Patient has the following speech barrier to consider when teaching: No speech barrier identified. LANGUAGE Patient reports that Nepalese is preferred language for healthcare. Patient has the following language barrier to consider when teaching: No language barrier has been identified. Patient has the following vision barrier(s) to consider when teaching: The following barrier has been identified:, Requires glasses/contacts for reading Adjustments made to address the identified barrier include: Assure patient has glasses/contacts for reading. Tobacco Use Screening - AT,DE,L,M,N,P,PH,PS,RT,S, U: The patient has never smoked cigarettes. The patient has never used other types of tobacco. Alcohol Use Screen (AUDIT-C) - V: Alcohol Screen: SCREEN FOR ALCOHOL (AUDIT-C) An alcohol screening test (AUDIT-C) was negative (score=0). 1. How often did you have a drink containing alcohol in the past year? Consider a drink to be a 12 ounce can or bottle of regular beer, 8 ounces of malt liquor, a 5 ounce glass of table wine, or a 1.5 ounce shot of liquor (like scotch, gin, or vodka). Never 2. How many drinks containing alcohol did you have on a typical day when you were drinking in the past year? Response not required due to responses to other questions. 3. How often did you have six or more drinks on one occasion in the past year? Response not required due to responses to other questions. Influenza Immunization - L,N,P,PH,U: The patient has received the seasonal influenza vaccine for the current season at another location. Documented: INFLUENZA, UNSPECIFIED FORMULATION Historical Date Administered: Aug 30, 2024 Outside Location: OUTSIDE PCP Information Source: SOURCE UNSPECIFIED /bin/ KIERA MÁRQUEZ LPN LICENSED PRACTICAL NURSE Signed: 12/13/2024 13:20 KIERA MÁRQUEZ [facility] Dec 13, 2024 12:29 PM PRIMARY CARE INITI AL EVALUATION NOTE: LOCAL TITLE: PRIMARY CARE PROVIDER NEW VISIT [facility] STANDARD TITLE: PRIMARY CARE INITIAL EVALUATION NOTE DATE OF NOTE: DEC 13, 2024@12:29 ENTRY DATE: DEC 13, 2024@12:29:20 AUTHOR: KAREN NEVAREZ EXP COSIGNER: URGENCY: STATUS: COMPLETED PRIMARY CARE PROVIDER NEW VISIT [facility] Has ADDENDA Patient is 79 and WHITE Self Identified Gender - NONE FOUND New pt visit, here to establish care. Is f/b multiple physicians in the community and plans to continue. Discussed dual care. He [facility] Here with his daughter, she is his caregiver. Recent dx of parkinsons, he has started sinemet. Private providers: *PCP-Dr. Baltazar Lewis [phone] *Museum Or Zoo Director- Dr. Nathaniel Washington [phone] *Neurologist-Dr. Angel Jansen [facility] [phone] *Ortho surgeon- Dr. Sandro Davis [phone] *Podiatry- Dr. Mohr Medication Review: Medications: Vit C OTC- daily Alpha-Lipoic acid OTC- 600mg daily Gabapentin 400mg TID Metformin 500mg BID Gas X OTC 2 tabs BID Colace OTC BID Carbadopa/Levo 25-100mg TID Jardiance 10mg daily Pantoprazole 40mg daily ASA 81mg daily Enalapril 5mg QHS Oxybutynin 10mg daily Allopurinol 300mg daily Rosuvastatin 10mg daily Vit B12 1000mg guaifenesin tab 400mg TID Tramadol 50mg TID prn (joint pain) Tylenol/Advil combo @ HS prn [facility] (eye vitamin) The essential med list for review which includes the patient's active VA prescriptions and if applicable, remote VA prescriptions, non-VA prescriptions, and discontinued VA prescriptions within the last 90 days and known allergies including local and remote allergies have been reviewed. Allergies:No Allergy Assessment Active and Recently Outpatient Medications (excluding Supplies): VITALS (most recent, as listed in the electronic record): Temperature: 98 F [36.7 C] (12/13/2024 13:05) Pulse: 81 (12/13/2024 13:05) Respiration: 18 (12/13/2024 13:05) B/P: 112/72 (12/13/2024 13:05) Pain: 5 (12/13/2024 13:05) Wt: 210.4 lb [95.44 kg] (12/13/2024 13:05) Ht: 67 in [170.2 cm] (12/13/2024 13:05) BMI: 33.0 POX: 95% (12/13/2024 13:05) PMH: PSH: # Diabetes # Heart disease ; Stent~1999 [facility] [place] *Stress test 2023-neg # Parkinson's 2023 # Gout *CTS [facility] [place]- date unknown *Left wrist growth removed- date unknown *Bilat Cataract 2023 [facility] [place], [place] *Kidney stones *Penile Pump- *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 FH: ROS: DENIES CP SOB DIZZINESS HEAT/COLD INTOLERANCE WT LOSS/GAIN BOWEL/BLADDER PROBLEMS HEALTH MAINT: COLONOSCOPY unsure of date , done in private sector. PSA/JOSE TETANUS PNEUMOVAX ZOSTAVAX HIV TESTING/hep c declines. SH: Tobacco Use: No Alcohol Use: yes - quit in 1968 [employer] 07/01/1966 TO 06/28/1969. 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 Lives with adult daughter. PE: walks slowly with cane. Kyphotic. Masked facies. Long white mcclain and ponytail HEENT: PERRLA EOMI TMss sclear NECK: SUPPLE CV: RRR NO M/R/G LUNGS: CLEAR ABD: SOFT NT BS ACTIVE EXT: NO EDEMA PULSES INTACT NEURO: + cogwheeling. A/O CNI, GAIT slow, mild shuffle A/P # Diabetes: on metforminand jardience. abs today # Heart disease ; Stent~1999 [facility] [place] *Stress test 2023-neg # Parkinson's dx'd 2023: on sinemet, f/b private neurolgist. # Gout: no recent attacks, on allopurinol. HM: Given all clinic/ER information and contact numbers. Aware that does not have emergency services nor a designated walk in clinic . DISCUSSED DIET AND EXERCISE KEEP FUTURE APPOINTMENTS PATIENT VOICED UNDERSTANDING OF PLAN OF CARE RTC 12 mo, prn Depression Screening - V: Perform PHQ-2 A PHQ-2 screen was performed. The score was 0 which is a negative screen for depression. Over the past two weeks, how often have you been bothered by the following problems? 1. Little interest or pleasure in doing things Not at all 2. Feeling down, depressed, or hopeless Not at all Suicide Screen - V: C-SSRS Screening Walsh-Suicide Severity Rating Scale (C-SSRS Screener) 1. Over the past month, have you wished you were or wished you could go to sleep and not wake up? No 2. Over the past month, have you had any actual thoughts of killing yourself? No 3. Over the past month, have you been thinking about how you might do this? Response not required due to responses to other questions. 4. Over the past month, have you had these thoughts and had some intention of acting on them? Response not required due to responses to other questions. 5. Over the past month, have you started to work out or worked out the details of how to kill yourself? Response not required due to responses to other questions. 6. If yes, at any time in the past month did you intend to carry out this plan? Response not required due to responses to other questions. 7. In your lifetime, have you ever done anything, started to do anything, or prepared to do anything to end your life (for example, collected pills, obtained a gun, gave away valuables, went to the roof but didn't jump)? No 8. If YES, was this within the past 3 months? Response not required due to responses to other questions. Hepatitis C Testing - L,N,P,PH: Patient declines HCV lab test. HIV Screening (Routine): Patient has been offered HIV testing and has declined. I have explained that HIV testing is recommended for all adults, even if all risk factors are absent. MST Screening: Patient denies experiencing sexual trauma (MST). Toxic Exposure Screening Follow-Up: Exposure Concern(s): 12/13/2024 Agent [place] - Toxic Exposure Concern Follow-up Question(s): 12/13/2024 No Questions - Toxic Exposure Concern Tie Siding/caregiver has health or medical question related to their self-reported environmental exposure (ARMANDO). Question: parkinsons The following connections were provided to the Tie Siding/caregiver: Environmental Health Registry PTSD Screening - V: PC-PTSD-5 A PTSD screening test (PC-PTSD-5) was negative (score=0). IN THE PAST MONTH, have you ever had any experience that was so frightening, horrible or traumatic. For example: A serious accident or fire a physical or sexual assault or abuse An earthquake or flood A war Seeing someone be killed or seriously injured Having a loved one through homicide or suicide 1. Have you ever experienced this kind of event? NO 2. Had nightmares about the event(s) or thought about the event(s) when you did not want to? Response not required due to responses to other questions. 3. Tried hard not to think about the event(s) or went out of your way to avoid situations that reminded you of the event(s)? Response not required due to responses to other questions. 4. Been constantly on guard, watchful, or easily startled? Response not required due to responses to other questions. 5. [place] numb or detached from people, activities, or your surroundings? Response not required due to responses to other questions. 6. [place] guilty or unable to stop blaming yourself or others for the event(s) or any problems the event(s) may have caused? Response not required due to responses to other questions. /bin/ KAREN NEVAREZ Staff Physician Signed: 12/13/2024 14:10 12/13/2024 ADDENDUM STATUS: UNSIGNED You may not VIEW this UNSIGNED Addendum. KAREN NEVAREZ [facility]
--- OUTSIDE RECORDS SUMMARY | 2025-01-08 15:39 | XMS_ITS | Referral Summary ---
Author Organization [facility] Address [facility] [place] [address] Care Team Providers Care Cardiology Clinical Consultant Name Role Phone Baltazar Lewis MD Primary Care Provider Encounters Date Type Department Care Team Description 10/25/2024 2:00 PM CHART COMPUTER Office Visit [facility] Neurology [facility] [address] [place] [address] Angel Milligan Si, MD Parkinson's disease without dyskinesia, with fluctuating manifestations (HCC) (Primary Dx); Diabetic polyneuropathy associated with type 2 diabetes mellitus (HCC) from Last 3 Months Allergies No known active allergies Medications allopurinoL (ZYLOPRIM) 300 mg tablet Take 1 tablet (300 mg total) by mouth daily 0 Active enalapril (VASOTEC) 5 mg tablet Take 1 tablet (5 mg total) by mouth nightly at bedtime. 0 Active metFORMIN (GLUCOPHAGE) 500 mg tablet Take 1 tablet (500 mg total) by mouth 2 (two) times a day 0 Active aspirin 81 mg chewable tablet Take by mouth 9 Active OneTouch Delica Plus Lancet 33 gauge misc USE 1 TO CHECK GLUCOSE ONCE DAILY 0 Active traMADoL (ULTRAM) 50 mg tablet 1 Active simethicone (GAS-X ORAL) Take by mouth Active docusate sodium (STOOL SOFTENER ORAL) Take by mouth Active ascorbic acid (VITAMIN C ORAL) Take by mouth Active empagliflozin (JARDIANCE) 10 mg tablet Take by mouth [address] (PROTONIX) 40 mg EC tablet Take 1 tablet (40 mg total) by mouth daily 3 Active cyanocobalamin (Vitamin B-12) 1,000 mcg tabletIndications: Prevention of Vitamin B12 Deficiency Take 1 tablet (1,000 mcg total) by mouth daily 90 tablet 3 4 Active rosuvastatin (CRESTOR) 10 mg tablet TAKE 1 TABLET BY MOUTH ONCE DAILY AT NIGHT 4 Active oxyBUTYnin XL (DITROPAN-XL) 10 mg 24 hr tablet Take 1 tablet (10 mg total) by mouth daily 4 Active guanFACINE ER (INTUNIV) 4 mg tablet extended release 24 hrIndications:Atte ntion-Deficit Hyperactivity Disorder Take 1 tablet (4 mg total) by mouth Active carbidopa-levodopa (SINEMET) 25-100 mg per tabletIndications: Parkinsonism Take 1 tablet by mouth 3 (three) times a day 90 tablet 11 5 10/25/19 26 Active gabapentin (NEURONTIN) 400 mg capsuleIndications :Neuropathic Pain Take 1 capsule (400 mg total) by mouth 3 (three) times a day 270 capsule 3 5 10/25/19 26 Active Active Problems Problem Noted Date Diagnosed Date Acquired trigger finger 10/25/2024 Edema 10/25/2024 Gout 10/25/2024 Neuropathy 10/25/2024 Numbness 10/25/2024 Pure hypercholesterolemia 10/25/2024 Type 2 diabetes mellitus 10/25/2024 Parkinson's disease ([facility]/HCC) 10/25/2024 Osteoarthritis of both knees 09/08/2023 Disorder of prostate 08/28/2023 Gastroesophageal reflux disease 05/18/2023 Contusion of anterior abdominal wall 04/18/2023 Erectile dysfunction 03/08/2023 Overactive bladder 02/28/2023 Osteoarthritis 08/25/2022 Morbid (severe) obesity due to excess calories 1 10/10/2021 Callus of toe 03/18/2022 Porokeratosis 03/18/2022 Diabetic peripheral neuropathy 11/29/2021 Dystrophia unguium 11/29/2021 Lymphedema of lower extremity 11/29/2021 Polyp of colon 05/13/2021 Chronic pain syndrome 01/14/2021 Diabetic polyneuropathy era soto with type 2 diabetes mellitus 12/05/2020 Assessment & Plan (12/05/2020 1:17 PM CHART COMPUTER): Patient is a former patient of [facility]. Prior medical records from [facility] have been requested. He continues on pregabalin 100 mg b.i.d. for symptomatic suppression of paresthesia and dysesthesia associated with neuropathic pain from his diabetic peripheral neuropathy. He has good tolerability with treatment and reports continues successful suppression of the majority of his pain. I have renewed his pregabalin as previously prescribed and will see him back in 1 year. Neuropathic pain of both legs 12/05/2020 Assessment & Plan (12/05/2020 1:18 PM CHART COMPUTER): Patient finds good tolerability and successful suppression of neuropathic pain with pregabalin. Pulmonary embolism 05/30/2019 Coronary arteriosclerosis 02/26/2019 Essential hypertension 02/26/2019 Kidney stone 05/24/2017 Social History Tobacco Use Types Packs/Day Years Used Date Smoking Tobacco: Never Smokeless Tobacco: Never Tobacco Cessation:Counseling Given: Not Answered AUDIT-C Answer Date Recorded Q1: How often do you have a drink containing alcohol? Never 08/10/2022 Q2: How many drinks containi ng alcohol do you have on a typical day when you are drinking? Patient does not drink Q3: How often do you have si x or more drinks on one occasion? Never 08/10/2022 Sex and Gender Information Value Date Recorded Sex Assigned at Not on file Legal Sex Male 8:05 AM CHART COMPUTER Gender Identity Not on file Sexual Orientation Not on file Last Filed Vital Signs Vital Sign Reading Time Taken Comments Blood Pressure 124/70 10/25/2024 1:53 PM CHART COMPUTER Pulse 78 10/25/2024 1:53 PM CHART COMPUTER Temperature 36.3 C (97.3 F) 08/10/2022 3:08 PM CDT Respiratory Rate 18 08/10/2022 3:08 PM CDT Oxygen Saturation 96% 10/25/2024 1:53 PM CHART COMPUTER Inhaled Oxygen Concentration - - Weight 97.1 kg (214 lb) 10/25/2024 1:53 PM CHART COMPUTER Height 170.2 cm (5' 7 ) 10/25/2024 1:53 PM CHART COMPUTER Body Mass Index 33.52 10/25/2024 1:53 PM CHART COMPUTER Plan of Treatment Not on file Insurance MEDICARE [facility] MEDICARE [facility] Care Teams Cardiology Clinical Consultant Relationship Specialty Start Date End Date Baltazar Lewis MD [address] [facility] [place] [phone] PCP - General Internal Medicine 08/19/20
--- OUTSIDE RECORDS SUMMARY | 2025-01-08 15:39 | XMS_ITS | Continuity of Care Document ---
Author Name [facility] Organization [facility] Care Team Providers Care Can Labeler Name Role Phone [facility] Unavailable Unavailable Problems Combined list of problems from Department of [facility] and [facility] facilities. It does not include entries that were removed or entered in error. Problem Status Onset Date Problem Type Date of Resolution Comments Source Exposure to potentially hazardous substance (SCT [id number] ) Active Condition Dec 19, 2024 Entered By: KALPANA BRADLEY Comment: Entered automatically through AJAY Problem List documentation program [facility] Diagnosis: ICD-10-CM G20.C Parkinsonism, unspecified Active Diagnosis [facility] Diagnosis: ICD-10-CM Z71.89 Other specified counseling Active Diagnosis [facility] Medications Combined list of outpatient medications from Department of [facility] and [facility] facilities.Medications provided include 1) outpatient medications from the last 15 months, and 2) patient-reported medications. Medication Details Route Status Patient Instructions Prescription Expires Prescription Number Last Dispense Date Ordering Provider Order Date Order Qty Source EMPAGLIFLOZ IN 25MG TAB TAKE ONE-HALF TABLET BY MOUTH ONCE A DAY FOR HEART FAILURE ORAL ACTIVE 12/14/2025 [id number] KAREN JIANG 2024 45 [facility] N Immunizations Combined list of available immunizations from the Department of [facility] and [facility] facilities. Immunization Series Date Given Administered By Site Reaction Lot Number CVX Code Drug Executive Producer Promos Status Comments Source COVID-19 (PFIZER), MRNA, LNP-S, PF, NICK-SUCROSE, 30 MCG/0.3 ML (AGES 12+ YEARS) 2024 KIERA MÁRQUEZ LEFT DELTO ID [id number] [facility] ed [facility] INFLUENZA, UNSPECIFIED FORMULATION 2023 [address] [facility] Results Combined list of recent chemistry, hematology and other laboratory results from [facility] of Defense and [facility], ranging from 15 months to all on record, depending upon the facility. Order Name Results Value Reference Range Date Interpretation Specimen Comments Source COMPREHENS LAYLA METABOLIC PANEL CREATININE [MASS/VOLUM E] IN SERUM OR PLASMA 1.26 mg/dL 0.70 - 1.30 12/13 Specimen Type: PLASMA Comment: No hemolysis noted. Ordering Provider: KAREN JIANG Report Released Date/Time: Dec 13, 2024 01:57 PM Reporting Lab: [facility] [place] [address] Performing Lab: [facility] DIVISION COMPREHENS LAYLA METABOLIC PANEL UREA NITROGEN [MASS/VOLUM E] IN SERUM OR PLASMA 22.4 mg/dL 9.0 - 25.0 12/13 Specimen Type: PLASMA Comment: No hemolysis noted. Ordering Provider: KAREN JIANG Report Released Date/Time: Dec 13, 2024 01:57 PM Reporting Lab: [facility] [place] [address] Performing Lab: [facility] DIVISION COMPREHENS LAYLA METABOLIC PANEL GLUCOSE [MASS/VOLUM E] IN SERUM OR PLASMA 119 mg/dL 72 - 99 12/13 H Specimen Type: PLASMA Comment: No hemolysis noted. Ordering Provider: KAREN JIANG Report Released Date/Time: Dec 13, 2024 01:57 PM Reporting Lab: [facility] [place] [address] Performing Lab: [facility] DIVISION COMPREHENS LAYLA METABOLIC PANEL SODIUM [MOLES/VOLU ME] IN SERUM OR PLASMA 143 meq/L 136 - 145 12/13 Specimen Type: PLASMA Comment: No hemolysis noted. Ordering Provider: KAREN JIANG Report Released Date/Time: Dec 13, 2024 01:57 PM Reporting Lab: [facility] [place] [address] Performing Lab: [facility] DIVISION COMPREHENS LAYLA METABOLIC PANEL POTASSIUM [MOLES/VOLU ME] IN SERUM OR PLASMA 4.7 meq/L 3.5 - 5.0 12/13 Specimen Type: PLASMA Comment: No hemolysis noted. Ordering Provider: KAREN JIANG Report Released Date/Time: Dec 13, 2024 01:57 PM Reporting Lab: [facility] [place] [address] Performing Lab: [facility] DIVISION COMPREHENS LAYLA METABOLIC PANEL CHLORIDE [MOLES/VOLU ME] IN SERUM OR PLASMA 105 meq/L 98 - 107 12/13 Specimen Type: PLASMA Comment: No hemolysis noted. Ordering Provider: KAREN JIANG Report Released Date/Time: Dec 13, 2024 01:57 PM Reporting Lab: [facility] [place] [address] Performing Lab: [facility] DIVISION COMPREHENS LAYLA METABOLIC PANEL CARBON DIOXIDE, TOTAL [MOLES/VOLU ME] IN SERUM OR PLASMA 28 meq/L 22 - 31 12/13 Specimen Type: PLASMA Comment: No hemolysis noted. Ordering Provider: KAREN JIANG Report Released Date/Time: Dec 13, 2024 01:57 PM Reporting Lab: [facility] [place] [address] Performing Lab: [facility] DIVISION COMPREHENS LAYLA METABOLIC PANEL CALCIUM [MASS/VOLUM E] IN SERUM OR PLASMA 9.6 mg/dL 8.4 - 10.4 12/13 Specimen Type: PLASMA Comment: No hemolysis noted. Ordering Provider: KAREN JIANG Report Released Date/Time: Dec 13, 2024 01:57 PM Reporting Lab: [facility] [place] [address] Performing Lab: [facility] DIVISION COMPREHENS LAYLA METABOLIC PANEL PROTEIN [MASS/VOLUM E] IN SERUM OR PLASMA 7.5 g/dL 6.0 - 8.6 12/13 Specimen Type: PLASMA Comment: No hemolysis noted. Ordering Provider: KAREN JIANG Report Released Date/Time: Dec 13, 2024 01:57 PM Reporting Lab: [facility] [place] [address] Performing Lab: [facility] DIVISION COMPREHENS LAYLA METABOLIC PANEL ALBUMIN [MASS/VOLUM E] IN SERUM OR PLASMA 4.6 g/dL 3.4 - 5.0 12/13 Specimen Type: PLASMA Comment: No hemolysis noted. Ordering Provider: KAREN JIANG Report Released Date/Time: Dec 13, 2024 01:57 PM Reporting Lab: [facility] [place] [address] Performing Lab: [facility] DIVISION COMPREHENS LAYLA METABOLIC PANEL BILIRUBIN.T OTAL [MASS/VOLUM E] IN SERUM OR PLASMA 0.5 mg/dL 0.2 - 1.2 12/13 Specimen Type: PLASMA Comment: No hemolysis noted. Ordering Provider: KAREN JIANG Report Released Date/Time: Dec 13, 2024 01:57 PM Reporting Lab: [facility] [place] [address] Performing Lab: [facility] COMPREHENS LAYLA METABOLIC PANEL ALKALINE PHOSPHATASE [ENZYMATIC ACTIVITY/VO LUME] IN SERUM OR PLASMA 80 U/L 40 - 150 12/13 Specimen Type: PLASMA Comment: No hemolysis noted. Ordering Provider: KAREN JIANG Report Released Date/Time: Dec 13, 2024 01:57 PM Reporting Lab: [facility] [place] [address] Performing Lab: [facility] DIVISION COMPREHENS LAYLA METABOLIC PANEL ASPARTATE AMINOTRANSF ERASE [ENZYMATIC ACTIVITY/VO LUME] IN SERUM OR PLASMA 17 U/L 5 - 34 12/13 Specimen Type: PLASMA Comment: No hemolysis noted. Ordering Provider: KAREN JIANG Report Released Date/Time: Dec 13, 2024 01:57 PM Reporting Lab: [facility] [place] [address] Performing Lab: [facility] DIVISION COMPREHENS LAYLA METABOLIC PANEL ALANINE AMINOTRANSF ERASE [ENZYMATIC ACTIVITY/VO LUME] IN SERUM OR PLASMA <7U/L 8 - 40 12/13 L Specimen Type: PLASMA Comment: No hemolysis noted. Ordering Provider: KAREN JIANG Report Released Date/Time: Dec 13, 2024 01:57 PM Reporting Lab: [facility] [place] [address] Performing Lab: [facility] COMPREHENS LAYLA METABOLIC PANEL GLOMERULAR FILTRATION RATE/1.73 SQ M.PREDICTED [VOLUME RATE/AREA] IN SERUM, PLASMA OR BLOOD BY CREATININE- BASED FORMULA (CKD-EPI 2020) 58.38 60 12/13 Specimen Type: PLASMA Comment: No hemolysis noted. Ordering Provider: KAREN JIANG Report Released Date/Time: Dec 13, 2024 01:57 PM Reporting Lab: [facility] [place] [address] Performing Lab: [facility] DIVISION CBC LEUKOCYTES [#/VOLUME] IN BLOOD BY AUTOMATED COUNT 10.3 10*3/u L 3.6 - 11.2 12/13 Specimen Type: BLOOD No comment entered. Ordering Provider: KAREN JIANG Report Released Date/Time: Dec 13, 2024 01:57 PM Reporting Lab: [facility] [place] [address] Performing Lab: [facility] DIVISION CBC ERYTHROCYTE S [#/VOLUME] IN BLOOD BY AUTOMATED COUNT 4.69 10*6/u L 4.10 - 5.70 12/13 Specimen Type: BLOOD No comment entered. Ordering Provider: KAREN JIANG Report Released Date/Time: Dec 13, 2024 01:57 PM Reporting Lab: [facility] [place] [address] Performing Lab: [facility] DIVISION CBC HEMOGLOBIN [MASS/VOLUM E] IN BLOOD 14.2 g/dL 13.1 - 16.8 12/13 Specimen Type: BLOOD No comment entered. Ordering Provider: KAREN JIANG Report Released Date/Time: Dec 13, 2024 01:57 PM Reporting Lab: [facility] [place] [address] Performing Lab: [facility] DIVISION CBC HEMATOCRIT [VOLUME FRACTION] OF BLOOD 44.7 38.2 - 48.4 12/13 Specimen Type: BLOOD No comment entered. Ordering Provider: KAREN JIANG Report Released Date/Time: Dec 13, 2024 01:57 PM Reporting Lab: [facility] [place] [address] Performing Lab: [facility] DIVISION CBC MCV [ENTITIC VOLUME] BY AUTOMATED COUNT 95.3 fL 80.0 - 100.0 12/13 Specimen Type: BLOOD No comment entered. Ordering Provider: KAREN JIANG Report Released Date/Time: Dec 13, 2024 01:57 PM Reporting Lab: [facility] [place] [address] Performing Lab: [facility] DIVISION CBC MCH [ENTITIC MASS] BY AUTOMATED COUNT 30.3 pg 27.0 - 34.0 12/13 Specimen Type: BLOOD No comment entered. Ordering Provider: KAREN JIANG Report Released Date/Time: Dec 13, 2024 01:57 PM Reporting Lab: [facility] [place] [address] Performing Lab: [facility] DIVISION CBC MCHC [MASS/VOLUM E] BY AUTOMATED COUNT 31.8 g/dL 33.0 - 36.0 12/13 L Specimen Type: BLOOD No comment entered. Ordering Provider: KAREN JIANG Report Released Date/Time: Dec 13, 2024 01:57 PM Reporting Lab: [facility] [place] [address] Performing Lab: [facility] DIVISION CBC PLATELETS [#/VOLUME] IN BLOOD BY AUTOMATED COUNT 239 10*3/u L 150 - 400 12/13 Specimen Type: BLOOD No comment entered. Ordering Provider: KAREN JIANG Report Released Date/Time: Dec 13, 2024 01:57 PM Reporting Lab: [facility] [place] [address] Performing Lab: [facility] DIVISION CBC PLATELET MEAN VOLUME [ENTITIC VOLUME] IN BLOOD BY AUTOMATED COUNT 10.4 fL 7.5 - 11.2 12/13 Specimen Type: BLOOD No comment entered. Ordering Provider: KAREN JIANG Report Released Date/Time: Dec 13, 2024 01:57 PM Reporting Lab: [facility] [place] [address] Performing Lab: [facility] DIVISION CBC ERYTHROCYTE DISTRIBUTIO N WIDTH [RATIO] BY AUTOMATED COUNT 13.4 11.8 - 15.1 12/13 Specimen Type: BLOOD No comment entered. Ordering Provider: KAREN JIANG Report Released Date/Time: Dec 13, 2024 01:57 PM Reporting Lab: [facility] [place] [address] Performing Lab: [facility] DIVISION CBC LYMPHOCYTES /100 LEUKOCYTES IN BLOOD BY AUTOMATED COUNT 19 12/13 Specimen Type: BLOOD No comment entered. Ordering Provider: KAREN JIANG Report Released Date/Time: Dec 13, 2024 01:57 PM Reporting Lab: [facility] [place] [address] Performing Lab: [facility] DIVISION CBC MONOCYTES/1 00 LEUKOCYTES IN BLOOD BY AUTOMATED COUNT 7 12/13 Specimen Type: BLOOD No comment entered. Ordering Provider: KAREN JIANG Report Released Date/Time: Dec 13, 2024 01:57 PM Reporting Lab: [facility] [place] [address] Performing Lab: [facility] DIVISION CBC NEUTROPHILS /100 LEUKOCYTES IN BLOOD BY AUTOMATED COUNT 72 12/13 Specimen Type: BLOOD No comment entered. Ordering Provider: KAREN JIANG Report Released Date/Time: Dec 13, 2024 01:57 PM Reporting Lab: [facility] [place] [address] Performing Lab: [facility] DIVISION CBC EOSINOPHILS /100 LEUKOCYTES IN BLOOD BY AUTOMATED COUNT 1 12/13 Specimen Type: BLOOD No comment entered. Ordering Provider: KAREN JIANG Report Released Date/Time: Dec 13, 2024 01:57 PM Reporting Lab: [facility] [place] [address] Performing Lab: [facility] DIVISION CBC BASOPHILS/1 00 LEUKOCYTES IN BLOOD BY AUTOMATED COUNT 1 12/13 Specimen Type: BLOOD No comment entered. Ordering Provider: KAREN JIANG Report Released Date/Time: Dec 13, 2024 01:57 PM Reporting Lab: [facility] [place] [address] Performing Lab: [facility] DIVISION CBC LYMPHOCYTES [#/VOLUME] IN BLOOD BY AUTOMATED COUNT 1.96 10*3/u L 0.77 - 4.50 12/13 Specimen Type: BLOOD No comment entered. Ordering Provider: KAREN JIANG Report Released Date/Time: Dec 13, 2024 01:57 PM Reporting Lab: [facility] [place] [address] Performing Lab: [facility] DIVISION CBC MONOCYTES [#/VOLUME] IN BLOOD BY AUTOMATED COUNT 0.69 10*3/u L 0.19 - 0.80 12/13 Specimen Type: BLOOD No comment entered. Ordering Provider: KAREN JIANG Report Released Date/Time: Dec 13, 2024 01:57 PM Reporting Lab: [facility] [place] [address] Performing Lab: [facility] DIVISION CBC NEUTROPHILS [#/VOLUME] IN BLOOD BY AUTOMATED COUNT 7.36 10*3/u L 2.10 - 8.00 12/13 Specimen Type: BLOOD No comment entered. Ordering Provider: KAREN JIANG Report Released Date/Time: Dec 13, 2024 01:57 PM Reporting Lab: [facility] [place] [address] Performing Lab: [facility] DIVISION CBC EOSINOPHILS [#/VOLUME] IN BLOOD BY AUTOMATED COUNT 0.13 10*3/u L 0.00 - 0.60 12/13 Specimen Type: BLOOD No comment entered. Ordering Provider: KAREN JIANG Report Released Date/Time: Dec 13, 2024 01:57 PM Reporting Lab: [facility] [place] [address] Performing Lab: [facility] DIVISION CBC BASOPHILS [#/VOLUME] IN BLOOD BY AUTOMATED COUNT 0.10 10*3/u L 0.00 - 0.20 12/13 Specimen Type: BLOOD No comment entered. Ordering Provider: KAREN JIANG Report Released Date/Time: Dec 13, 2024 01:57 PM Reporting Lab: [facility] [id number] Performing Lab: [facility] [id number] [place] [address] DIVISION HGA1C HEMOGLOBIN A1C/HEMOGLO BIN.TOTAL IN BLOOD 6.1 4.0 - 6.0 12/13 H Specimen Type: BLOOD No comment entered. Ordering Provider: KAREN JIANG Report Released Date/Time: Dec 13, 2024 01:57 PM Reporting Lab: [facility] [id number] Performing Lab: [facility] [id number] [place] [address] DIVISION Vital Signs Combined list of inpatient and outpatient Vital Signs from [facility] of Defense and [facility], ranging from 12 months to all on record, depending upon the facility. Vital Sign Value Date Comments Source SYSTOLIC BLOOD PRESSURE 112 12/13/2024 13:05:15 [facility] DIASTOLIC BLOOD PRESSURE 72 12/13/2024 13:05:15 [facility] PULSE OXIMETRY 95 12/13/2024 13:05:15 [facility] WEIGHT 210.4 12/13/2024 13:05:15 [facility] BMI 33 kg/m2 12/13/2024 13:05:15 [facility] PAIN 5 12/13/2024 13:05:15 [facility] HEIGHT 67 12/13/2024 13:05:15 [facility] TEMPERATURE 98 12/13/2024 13:05:15 [facility] PULSE 81 12/13/2024 13:05:15 [facility] RESPIRATION 18 12/13/2024 13:05:15 [facility] Encounters Combined list of: 1) Encounters from [facility] facilities going backup to the last 18 months, not all [place] inpatient encounters are included; 2) Encounters from the Department of [facility] facilities going backup to 280 months. Location Location Details Encounter Type Encounter Number Reason For Visit Attending Provider ADM Date DC Date Status Disposition Source [facility] Outpatient Encounter [id number] 08/30 [facility] Outpatient Encounter [id number] 09/29 [facility] OFF/OP EST FEBRUARY X REQ PHY/QHP [id number] Diagnos is: ICD-10- CM Z71.89 Other specifi ed spiritual counselor TRACY Sprague E 12/05 [facility] OFFICE O/P [place] 60 MIN [id number] Diagnos is: ICD-10- CM G20.C Sajan onism, unspeci KAREN Mcgowan 12/13 [facility] Social History Combined list of available smoking, tobacco, and other social history from Department of Defense and Veterans Affairs facilities. Social History Type Response Date Comment Sourc e Tobacco smoking status NHIS MA-TOBACCO NEVER USED CIGARETTES 12/13/2024 [facility] History of tobacco use MA-TOBACCO NEVER USED OTHER TYPE 12/13/2024 [facility] Plan of Care List of future care activities from Department [facility] facilities. Additional future care activities may be listed in the Assessment and Plan section. Date/Time Care Activity Care Activity Detail Facili ty 02/08/2025 AMBULATORY - SURGERY AMBULATORY - SURGERY [facility]
--- OUTSIDE RECORDS SUMMARY | 2025-01-08 15:39 | XMS_ITS | Clinical Summary ---
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 Role Phone Baltazar Lewis MD Primary Care Provider Allergies No known active allergies Medications allopurinoL [...] a day 90 tablet 11 5 10/25/19 Active gabapentin (NEURONTIN) 400 mg capsuleIndications :Neuropathic Pain Take 1 capsule (400 mg total) by mouth 3 (three) times a day 270 capsule 3 5 10/25/19 Active Active Problems Problem Noted Date Diagnosed Date Acquired trigger finger 10/25/2024 Edema 10/25/2024 Gout 10/25/2024 Neuropathy 10/25/2024 Numbness 10/25/2024 Pure hypercholesterolemia 10/25/2024 Type 2 diabetes mellitus 10/25/2024 Parkinson's disease ([facility]/HCC) 10/25/2024 Osteoarthritis of both knees 09/08/2023 Disorder [...] 05/13/2021 Chronic pain syndrome 01/14/2021 Diabetic polyneuropathy asso ciated with type 2 diabetes mellitus 12/05/2020 Assessment & Plan (12/05/2020 1:17 PM LAB RN): Patient is a former patient of [facility]. Prior medical records from [facility] have been requested. He continues on [...] 12/05/2020 Assessment & Plan (12/05/2020 1:18 PM LAB RN): Patient finds good tolerability and successful suppression of neuropathic pain with pregabalin. Pulmonary embolism 05/30/2019 Coronary arteriosclerosis 02/26/2019 Essential hypertension 02/26/2019 Kidney stone 05/24/2017 Encounters Date Type Department Care Team Description 10/25/2024 2:00 PM LAB RN Office Visit [facility] [address] [place] [address] [place] [phone] Angel Milligan Si, MD Parkinson's disease without dyskinesia, with fluctuating manifestations (HCC) (Primary Dx); Diabetic polyneuropathy associated with type 2 diabetes mellitus (HCC) from Last 3 Months Surgical History Surgery Date Site/Laterality Comments KNEE SURGERY CARPAL TUNNEL RELEASE CARDIAC STENT PLACEMENT CATARACT EXTRACTION Medical History Medical History Date Comments Diabetes (HCC) Family History Medical History Relation Name Comments No Known Problems Brother 1 No Known Problems Brother 2 Stroke Father No Known Problems Mother No Known Problems Sister Relation Name Status Comments Brother 1 Alive Brother 2 Alive Father Mother Sister Alive Social History Tobacco Use Types Packs/Day Years [...] on file Legal Sex Male 8:05 AM LAB RN Gender Identity Not on file Sexual Orientation Not on file Obstetrics History Last Filed Vital Signs Vital Sign Reading Time Taken Comments Blood Pressure 124/70 10/25/2024 1:53 PM LAB RN Pulse 78 10/25/2024 1:53 PM LAB RN Temperature 36.3 C (97.3 F) 08/10/2022 3:08 PM CDT Respiratory Rate 18 08/10/2022 3:08 PM CDT Oxygen Saturation 96% 10/25/2024 1:53 PM LAB RN Inhaled Oxygen Concentration - - Weight 97.1 kg (214 lb) 10/25/2024 1:53 PM LAB RN Height 170.2 cm (5' 7 ) 10/25/2024 1:53 PM LAB RN Body Mass Index 33.52 10/25/2024 1:53 PM LAB RN Plan of Treatment Health Maintenance Due Date Last Done Comments Albumin Creatinine Ratio, Urine 1946 Depression Screening 1946 Fall Risk Assessment 1946 Hemoglobin A1C 1946 Hepatitis C Screening 1946 eGFR 1946 Dilated Eye Exam 1946 Foot Exam 1946 Lipid Panel 1946 DTaP/Tdap/Td Vaccine (1 - Tdap) 1957 Hepatitis B Screening 1964 Zoster Vaccine (1 of 2) 1996 Well Visit 65+ 12/11/2011 Pneumococcal vaccine 65+ (3 of 3 - PCV20 or PCV21) 12/26/2019 12/25/2014, 07/10/2009 Influenza Vaccine (Season Ended) 2025 09/26/2018, 07/27/2017, 10/27/2015, Additional history exists Insurance MEDICARE [facility] Address: [address] [address] [facility] MEDICARE [facility] Care Teams Water Filterer Helper Relationship Specialty Start Date End Date Baltazar Lewis MD [address] [facility] [address] [place] [address] PCP - General Internal Medicine 08/19/20
--- OUTSIDE RECORDS SUMMARY | 2025-01-08 15:39 | XMS_ITS | Data Portability ---
Author Organization [facility] [employer] [facility], Main Office Address [address] [place] [address] Care Team Providers Care Preschool Assistant Teacher Name Role Phone WARD ELWIS Primary Care Provider WARD LEWIS Referring Provider Assessment Encounter Date Assessment Date Assessment LastModified by Organization Details LastModified Time 03/13/2024 03/13/2024 This note is dictated and transcribed by [employer]. Distribution Operations Manager variances may occur. Despite proofreading, typographical errors may occur. Occasional wrong-word or 'dvapk-i-rose' substitutions may have occurred due to the inherent limitations of voice recording. Read the chart carefully and recognize, using context, where substitutions have occurred. Not available 04/05/2024 14:49:00 06/14/2024 06/14/2024 This note is dictated and transcribed by [employer]. Distribution Operations Manager variances may occur. Despite proofreading, typographical errors may occur. Occasional wrong-word or 'hhzgs-l-owpl' substitutions may have occurred due to the inherent limitations of voice recording. Read the chart carefully and recognize, using context, where substitutions have occurred. Not available 07/04/2024 12:21:29 12/05/2024 12/05/2024 This note is dictated and transcribed by [employer]. Distribution Operations Manager variances may occur. Despite proofreading, typographical errors may occur. Occasional wrong-word or 'vfsic-h-qdmk' substitutions may have occurred due to the inherent limitations of voice recording. Read the chart carefully and recognize, using context, where substitutions have occurred. Not available 12/06/2024 09:03:48 Plan of Treatment Reminders Order Date Submit Date Provider Last Modified By Organization Details Last Modified Time Details Appointments Establish ed Patient 15 2024 03:00P Lyndsey Mohr DPM Not available Not available Not available Lab HbA1c (hemoglob in A1c), blood 2023 024 [email or web address] [facility], [address], [place], [address], 09/14/2024 16:04:20 lipid panel, serum 2023 024 [email or web address] [facility], [address], [place], [address], 09/14/2024 16:04:19 CMP, serum or plasma 2023 024 [id number] [facility], [address], [place], [address], 09/14/2024 16:04:20 CBC w/ auto diff 2023 024 [email or web address] [facility], [address], [address], [place], [address], 09/14/2024 16:04:20 PSA, serum or plasma 2023 024 [email or web address] [facility], [address], [place], [place], [address], 09/14/2024 16:04:20 uric acid, serum or plasma 2023 024 [id number] [facility], [address], [address], [place], [address], 05/09/2024 16:55:40 HbA1c (hemoglob in A1c), blood 2023 024 [email or web address] [facility], [address], [place], [address], 05/09/2024 16:55:39 microalbu min, urine 2023 024 [facility], [address], [place], [address], 05/09/2024 16:55:39 vitamin B12, serum 2023 024 [email or web address] [facility], [address], [place], [address], 05/09/2024 16:55:40 lipid panel, serum 2023 024 [id number] [facility], [address], [place], [address], 05/09/2024 16:55:39 CMP, serum or plasma 2023 024 [facility], [address], [place], [address], 05/09/2024 16:55:39 TSH, serum or plasma 2023 024 [email or web address] [facility], [address], [address], [place], [address], 05/09/2024 16:55:39 T4, free, serum 2023 024 [email or web address] [facility], [address], [place], [place], [address], 05/09/2024 16:55:39 CBC w/ auto diff 2023 024 [email or web address] [facility], [address], [address], [place], [address], 05/09/2024 16:55:38 Referral None recorded. Procedures None recorded. Surgeries None recorded. Imaging None recorded. Medication Orders None recorded. Patient TargetsNo targets recorded. Patient Instructions Encounter Date Encounter Id Patient Instructions Last Modified By Organization Details Last Modified Time 04/26/2024 [id number] Coronary artery disease, essential hypertension, hyperlipidemia, type 2 diabetes, gout, chronic pain syndrome as well as obesity class one all clinically stable. Will check blood work consisting of CBC, CMP, lipid, thyroid, hemoglobin A1c, microalbumin, uric acid level and B12. Continue on current Rx Next Appointment: 4 Months Approximate Date: 08/24/2024 Portions of the record may have been created with voice recognition software. Occasional wrong-word or s ound-a-like substitutions may have occurred due to the inherent limitations of voice recognition software. Read the chart carefully and recognize, using context, where substitutions have occurred. Not available 04/26/2024 16:22:27 08/30/2024 [id number] dementia rating scale-2* [email or web address] Not available 08/30/2024 16:11:20 alcohol misuse* [email or web address] Not available 08/30/2024 16:11:20 depression screening* [email or web address] Not available 08/30/2024 16:11:20 Timed Up and Go test (TUG)* [email or web address] Not available 08/30/2024 16:11:20 multi-dimensiona health assessment questionnaire* [email or web address] Not available 08/30/2024 16:11:20 Personalized Hea lt Plan and Screening Recommendations Advance Directives - Do you have one? No Advance Directives - Do we have your advance directive on file in your health record? Primary Prevention/Interven tion (prevents or decreases the chance of common diseases from occurring) Smoking Risk: Non Smoker Alcohol Misuse Screening: Negative Weight: Appropriate Overwei ght continue your current weight loss efforts try to lose 5% of your body weight try to lose 10% of your body weight Physical activity: Need more exercise/physical activity Nutrition: Good Average Fall Risk (screened today): Low Intermediate Refer to attached handout Preventing Falls: After your Visit Recommend regular use of cane or walker Vaccines Pneumococcal: Ordered Recommended today Recommended today, but you have declined No further needed Influenza: Ordered Recommended today Recommended today, but you have declined Chronic Disease Risks Stroke: Low Risk Intermediate Risk I have no recommendations Act layla diagnosis, Continue current treatment plan Heart Attack: Low risk Intermediate Risk I have no recommendations Act layla diagnosis, Continue current treatment plan Clogging of the Arteries: Low risk Intermediate Risk I have no recommendations Act layla diagnosis, Continue current treatment plan Diabetes: Low Risk Intermediate Risk Active diagnosis, Continue current treatment plan Secondary Prevention/Interven tion (detects treatable diseases before they may cause symptoms, disability, or ) Prostate Cancer Screening: Colon Cancer Screening: Colonoscopy Date Screening Last Performed: __2020____ Eye Disease Screening: Dementia Risk: Low I have no recommendations Depression Screening: Negative [email or web address] Not available 08/30/2024 15:58:17 Medicare wellnes s evaluation risk assessment stable. Follow-up for coronary artery disease, essential hypertension, GERD, gout, hyperlipidemia type 2 diabetes. All clinically stable. Will check some baseline blood work including hemoglobin A1c and lipid panel. Is due for a PSA as well. Continue on current medications follow-up in four months Additional Orders - Directives - Recommendations 1. get blood drawn after 09/02/2024 because of insurance reasons Follow Up: 4 Months Approximate Date: 12/28/2024 Portions of the record may have been created with voice recognition software. Occasional wrong-word or s ound-a-like substitutions may have occurred due to the inherent limitations of voice recognition software. Read the chart carefully and recognize, using context, where substitutions have occurred. Created: Ward Lewis M.D. 08.30.2024 03:10 PM [email or web address] Not available 08/30/2024 16:10:52 Reason for Referral None Reported. Results Created Date Observation Date Name Description Value Unit Range Abnormal Flag Note LastModifiedBy Organization Detail LastModifiedTime 05/11/2005/12/2024 LIPID PANEL , STAND ADAM cholesterol, total 124 mg/dL <200 normal Not Available [facility] [address] [address] [place], [address], 05/12/2024 16:47:32 05/11/2005/12/2024 LIPID PANEL , STAND ADAM HDL cholesterol 43 mg/dL > or = 40 normal Not Available [facility] [address] [place], [address], 05/12/2024 16:47:32 05/11/20 24 05/12/2024 LIPID PANEL , STAND ADAM triglyceride s 132 mg/dL <150 normal Not Available [facility] [address] [place], [address], 05/12/2024 16:47:32 05/11/20 24 05/12/2024 LIPID PANEL , STAND ADAM LDL-choleste rol 59 mg/dL _(bianca c) normal Refer ence range : <100 Daljit able range <100 mg/dL for prima ry preve ntion ; <70 mg/dL for patie nts with CHD or diabe tic patie nts with > or = 2 CHD risk facto rs. LDL-C is now calcu lated using the Rhoda n-Hop kins calcu stephani n, which is a valid ated novel metho d provi ding shameka r accur acy than the Fried brady equat ion in the estim ation of LDL-C . Rhoda morgan SS et al. DARRIUS. 2013; 310(1 9): 2061- 2068 (http ://ed ucati on.iZettle paolaHipSnip. Simple IT/f aq/FA Q164) Not Available [facility] [address], [address], 05/12/2024 16:47:32 05/11/20 24 05/12/2024 LIPID PANEL , STAND ADAM chol/HDLC ratio 2.9 (calc ) <5.0 normal Not Available [facility] [address], [address], 05/12/2024 16:47:32 05/11/20 24 05/12/2024 LIPID PANEL , STAND ADAM non HDL cholesterol 81 mg/dL _(bianca c) <130 normal For patie nts with diabe aleah plus 1 major ASCVD risk facto r, treat ing to a non-H DL-C goal of <100 mg/dL (LDL- C of <70 mg/dL ) is consi desid a thera peuti c optio n. Not Available [facility] [address] [place] [address], [address], 05/12/2024 16:47:32 05/11/20 24 05/12/2024 URIC ACID uric acid 3.4 mg/dL 4.0-8. 0 low Thera peuti c targe t for gout patie nts: <6.0 mg/dL Not Available [facility] [address] [address], [place], [address], 05/12/2024 16:47:32 05/11/20 24 05/12/2024 COMPR EHENS LAYLA METAB OLIC PANEL , PLASM A glucose 109 mg/dL 65-99 high Fasti ng refer ence inter selena For someo ne witho ut known diabe aleah, a gluco se value betwe en 100 and 125 mg/dL is consi stent with predi abete s and shoul d be confi rmed with a follo w-up test. Not Available [address], [address], 05/12/2024 16:47:33 05/11/20 24 05/12/2024 COMPR EHENS LAYLA METAB OLIC PANEL , PLASM A urea nitrogen (BUN) 19 mg/dL 7-25 normal Not Available [address], [address], 05/12/2024 16:47:33 05/11/20 24 05/12/2024 COMPR EHENS LAYLA METAB OLIC PANEL , PLASM A creatinine 1.02 mg/dL 0.70-1 .28 normal Not Available [address], [address], 05/12/2024 16:47:33 05/11/20 24 05/12/2024 COMPR EHENS LAYLA METAB OLIC PANEL , PLASM A eGFR 76 mL/mi n/1.7 3m2 > or = 60 normal Not Available [address], [address], 05/12/2024 16:47:33 05/11/20 24 05/12/2024 COMPR EHENS LAYLA METAB OLIC PANEL , PLASM A BUN/creatini ne ratio SEE NOTE: (calc ) 6-22 Not Repor tadeo: BUN and Creat inine are withi n refer ence range . Not Available [facility] [address], [address], 05/12/2024 16:47:33 05/11/20 24 05/12/2024 COMPR EHENS LAYLA METAB OLIC PANEL , PLASM A sodium 141 mmol/ L 135-14 6 normal Not Available [address], [address], 05/12/2024 16:47:33 05/11/20 24 05/12/2024 COMPR EHENS LAYLA METAB OLIC PANEL , PLASM A potassium 4.4 mmol/ L 3.4-4. 8 normal Not Available [address], [address], 05/12/2024 16:47:33 05/11/20 24 05/12/2024 COMPR EHENS LAYLA METAB OLIC PANEL , PLASM A chloride 101 mmol/ L 98-110 normal Not Available [address], [address], 05/12/2024 16:47:33 05/11/20 24 05/12/2024 COMPR EHENS LAYLA METAB OLIC PANEL , PLASM A carbon dioxide 32 mmol/ L 20-32 normal Not Available [address], [address], 05/12/2024 16:47:33 05/11/20 24 05/12/2024 COMPR EHENS LAYLA METAB OLIC PANEL , PLASM A calcium 9.5 mg/dL 8.6-10 .3 normal Not Available [address], [address], 05/12/2024 16:47:33 05/11/20 24 05/12/2024 COMPR EHENS LAYLA METAB OLIC PANEL , PLASM A protein, total 7.4 g/dL 6.4-8. 4 normal Not Available [address], [address], 05/12/2024 16:47:33 05/11/20 24 05/12/2024 COMPR EHENS LAYLA METAB OLIC PANEL , PLASM A albumin 4.5 g/dL 3.6-5. 1 normal Not Available [address], [address], 05/12/2024 16:47:33 05/11/20 24 05/12/2024 COMPR EHENS LAYLA METAB OLIC PANEL , PLASM A globulin 2.9 g/dL_ (calc ) 2.2-4. 0 normal Not Available [address], [address], 05/12/2024 16:47:33 05/11/20 24 05/12/2024 COMPR EHENS LAYLA METAB OLIC PANEL , PLASM A albumin/glob ulin ratio 1.6 (calc ) 0.9-2. 3 normal Not Available [address], [address], 05/12/2024 16:47:33 05/11/20 24 05/12/2024 COMPR EHENS LAYLA METAB OLIC PANEL , PLASM A bilirubin, total 0.4 mg/dL 0.2-1. 2 normal Not Available [address], [address], 05/12/2024 16:47:33 05/11/20 24 05/12/2024 COMPR EHENS LAYLA METAB OLIC PANEL , PLASM A alkaline phosphatase 70 U/L 35-144 normal Not Available [address], [address], 05/12/2024 16:47:33 05/11/20 24 05/12/2024 COMPR EHENS LAYLA METAB OLIC PANEL , PLASM A AST 14 U/L 10-35 normal Not Available [address], [address], 05/12/2024 16:47:33 05/11/20 24 05/12/2024 COMPR EHENS LAYLA METAB OLIC PANEL , PLASM A ALT 13 U/L 9-46 normal Not Available [facility] [address] [address] [place], [address], 05/12/2024 16:47:33 05/11/20 24 05/12/2024 ALBUM IN, RANDO M URINE W/O CREAT ININE albumin, urine 1.7 mg/dL see note: normal Refer ence Range : Refer ence Range Not estab lishe d Not Available [facility] [address] [address] [place], [address], 05/12/2024 16:47:33 05/11/20 24 05/12/2024 ALBUM IN, RANDO M URINE W/O CREAT ININE MIRNA The ADA defin es abnor malit ies in album in excre tion as follo ws: Album inuri a Categ ory Resul t (mg/g creat inine ) Bria l to Mildl y incre ased <30 Moder ately incre ased 30-29 9 Sever tyesha incre ased > OR = 300 The ADA recom mends that at least two of three speci mens colle cted withi n a 3-6 month perio d be abnor mal befor e consi lizeth g a patie nt to be withi n a diagn ostic categ ory. Not Available [address] [address] [place], [address], 05/12/2024 16:47:33 05/11/20 24 05/12/2024 CBC (INCL UDES DIFF/ PLT) white blood cell count 7.1 thous and/u L 3.8-10 .8 normal Not Available [facility] [address] [address] [place], [address], 05/12/2024 16:47:33 05/11/20 24 05/12/2024 CBC (INCL UDES DIFF/ PLT) red blood cell count 4.66 vale on/uL 4.20-5 .80 normal Not Available [facility] [address] [address] [place], [address], 05/12/2024 16:47:33 05/11/20 24 05/12/2024 CBC (INCL UDES DIFF/ PLT) hemoglobin 13.6 g/dL 13.2-1 7.1 normal Not Available [address], [address], 05/12/2024 16:47:33 05/11/20 24 05/12/2024 CBC (INCL UDES DIFF/ PLT) hematocrit 43.8 % 38.5-5 0.0 normal Not Available [address], [address], 05/12/2024 16:47:33 05/11/20 24 05/12/2024 CBC (INCL UDES DIFF/ PLT) MCV 94.0 fL 80.0-1 00.0 normal Not Available [address], [address], 05/12/2024 16:47:33 05/11/20 24 05/12/2024 CBC (INCL UDES DIFF/ PLT) MCH 29.2 pg 27.0-3 3.0 normal Not Available [address], [address], 05/12/2024 16:47:33 05/11/20 24 05/12/2024 CBC (INCL UDES DIFF/ PLT) MCHC 31.1 g/dL 32.0-3 6.0 low Not Available [address], [address], 05/12/2024 16:47:33 05/11/20 24 05/12/2024 CBC (INCL UDES DIFF/ PLT) RDW 14.0 % 11.0-1 5.0 normal Not Available [address], [address], 05/12/2024 16:47:33 05/11/20 24 05/12/2024 CBC (INCL UDES DIFF/ PLT) platelet count 240 thous and/u L 140-40 0 normal Not Available [address], [address], 05/12/2024 16:47:33 05/11/20 24 05/12/2024 CBC (INCL UDES DIFF/ PLT) MPV 11.6 fL 7.5-12 .5 normal Not Available [address], [address], 05/12/2024 16:47:33 05/11/20 24 05/12/2024 CBC (INCL UDES DIFF/ PLT) absolute neutrophils 4466 cells /uL 1500-7 800 normal Not Available [address], [address], 05/12/2024 16:47:33 05/11/20 24 05/12/2024 CBC (INCL UDES DIFF/ PLT) absolute lymphocytes 1825 cells /uL 850-39 00 normal Not Available [address], [address], 05/12/2024 16:47:33 05/11/20 24 05/12/2024 CBC (INCL UDES DIFF/ PLT) absolute monocytes 554 cells /uL 200-95 0 normal Not Available [address], [address], 05/12/2024 16:47:33 05/11/20 24 05/12/2024 CBC (INCL UDES DIFF/ PLT) absolute eosinophils 142 cells /uL 15-500 normal Not Available [address], [address], 05/12/2024 16:47:33 05/11/20 24 05/12/2024 CBC (INCL UDES DIFF/ PLT) absolute basophils 114 cells /uL 0-200 normal Not Available [address], [address], 05/12/2024 16:47:33 05/11/20 24 05/12/2024 CBC (INCL UDES DIFF/ PLT) neutrophils 62.9 % normal Not Available [address], [address], 05/12/2024 16:47:33 05/11/20 24 05/12/2024 CBC (INCL UDES DIFF/ PLT) lymphocytes 25.7 % normal Not Available [address], [address], 05/12/2024 16:47:33 05/11/20 24 05/12/2024 CBC (INCL UDES DIFF/ PLT) monocytes 7.8 % normal Not Available [address], [address], 05/12/2024 16:47:33 05/11/20 24 05/12/2024 CBC (INCL UDES DIFF/ PLT) eosinophils 2.0 % normal Not Available [address], [address], 05/12/2024 16:47:33 05/11/20 24 05/12/2024 CBC (INCL UDES DIFF/ PLT) basophils 1.6 % normal Not Available [address], [address], 05/12/2024 16:47:33 05/11/20 24 05/12/2024 VITAM IN B12 vitamin B12 869 pg/mL 200-11 00 normal Not Available [address], [address], 05/12/2024 16:47:34 05/11/20 24 05/12/2024 T4, FREE T4, free 1.2 NG/dL 0.8-1. 8 normal Not Available [address], [address], 05/12/2024 16:47:34 05/11/20 24 05/12/2024 TSH TSH 3.08 mIU/L 0.40-4 .50 normal Not Available [facility] [address] [place], [address], 05/12/2024 16:47:35 05/11/20 24 05/12/2024 HEMOG LOBIN A1C hemoglobin A1C 6.6 %_of_ total _HGB <5.7 high For someo ne witho ut known diabe aleah, a hemog lobin A1c value of 6.5% or great er indic ates that they may have diabe aleah and this shoul d be confi rmed with a follo w-up test. For someo ne with known diabe aleah, a value <7% indic ates that their diabe aleah is well contr olled and a value great er than or equal to 7% indic ates subop timal contr ol. A1c targe ts shoul d be indiv idual ized based on durat ion of diabe aleah, age, comor bid condi tions , and other consi derat ions. Curre ntly, no conse nsus exist s regar ding use of hemog lobin A1c for diagn osis of diabe aleah for child bhavna. This test was perfo rmed on the [facility] heriberto c503 platf orm. Effec tive , a porter e in test platf orms from the [facility] t[facility] to the [facility] heriberto c503 may have shift ed HbA1c resul ts jermaine red to histo rical resul ts. Based on labor atory valid ation testi ng condu cted at [facility] , the [facility] platf orm relat layla to the [facility] platf orm had an avera ge incre ase in HbA1c value of < or = 0.3%. This diffe rence is withi n accep tadeo varia bilit y estab lishe d by the [employer] hemog lobin Stand ardiz ation Progr am. Note that not all indiv idual s will have had a shift in their resul ts and direc t jermaine rison s betwe en histo rical and curre nt resul ts for testi ng condu cted on diffe rent platf orms is not recom niyah d. Not Available [facility] [address] [address], [place], [address], 05/12/2024 16:47:35 08/06/20 24 08/06/2024 pharm acolo gic nucle ar stres s test No observ ation record ed. [address] [facility] [address], [place], [address], 08/07/2024 07:58:15 08/09/20 24 08/09/2024 US, doppl er, venou s No observ ation record ed. [address] [facility] [address], [place], [address], 08/10/2024 09:13:19 01/09/20 25 01/08/2025 imagi ng/di agnos tic resul t No observ ation record ed. [address] [facility], [place], [address], 01/08/2025 15:58:33 01/09/20 25 01/08/2025 imagi ng/di agnos tic resul t No observ ation record ed. [address] [address], [place], [address], 01/08/2025 16:03:52 01/09/20 25 01/08/2025 imagi ng/di agnos tic resul t No observ ation record ed. [address] [facility], [place], [address], 01/08/2025 16:11:15 01/09/20 25 01/08/2025 imagi ng/di agnos tic resul t No observ ation record ed. [address], [place], [address], 01/08/2025 16:29:42 Result Notes None recorded. Problems Name Problem SNOMED Code Status Onset Date Resolution Date Notes Provider Name and Address Organization Details Recorded Time Hammer toe 177262354 Active 2021 Not Available [facility] 3 10:45:59 Hammer toe 929395963 Active 2021 Not Available [facility] 3 10:45:59 Acquired trigger finger 7131316 Active Not Available [facility] 3 10:45:59 Pain in both feet 1836587148035 9102 Active 2021 Not Available [facility] 3 10:45:59 Callosity on toe 923728312 Active 2021 Not Available [facility] 3 10:45:59 Ingrowing great toenail 288141018 Active 2021 Not Available [facility] 3 10:45:59 Neuropathy due to diabetes mellitus 410435134 Active Not Available [facility] 3 10:45:59 Edema 681439486 Active Not Available [facility] 3 10:45:59 Pure hyperchole sterolemia 129999198 Active Not Available [facility] 3 10:45:59 Thoracic back pain 909225387 Active 2021 Not Available [facility] 3 10:45:59 Low back pain 091543563 Active 2021 Not Available [facility] 3 10:45:59 Unable to cut own toenails 526054137 Active 2021 Not Available [facility] 3 10:45:59 Chronic pain syndrome 029927022 Active 2020 Not Available [facility] 3 10:45:59 Neuropathy 412762746 Active Not Available [facility] 3 10:45:59 Osteoarthr itis 816258502 Active 2021 Not Available [facility] 3 10:45:59 Porokerato sis 865003853 Active 2021 Not Available [facility] 3 10:46:00 Lymphedema of lower extremity 713674657 Active 2021 Not Available [facility] 3 10:46:00 Obesity 535306678 Active 2021 Not Available [facility] 3 10:46:00 Diabetic peripheral neuropathy 541363550 Active 2021 Not Available [facility] 3 10:46:00 Type 2 diabetes mellitus 46436060 Active Not Available [facility] 3 10:46:00 Numbness 47414175 Active Not Available [facility] 3 10:46:00 Coronary arterioscl erosis 69772068 Active 2018 Not Available [facility] 3 10:46:00 Pulmonary embolism 02072146 Active 2018 Not Available [facility] 3 10:46:00 Essential hypertensi on 87812738 Active 2018 Not Available [facility] 3 10:46:00 Polyp of colon 23533897 Active 2020 Not Available [facility] 3 10:46:00 Dystrophia unguium 71849505 Active 2021 Not Available [facility] 3 10:46:00 Gout 43193844 Active Not Available [facility] 3 10:46:00 Kidney stone 26162097 Active 2016 Not Available [facility] 3 10:46:00 Overactive urinary bladder 009770427 Active 2022 Not Available [facility] 3 10:46:00 Urgent desire to urinate 17035025 Active 2022 Not Available [facility] 3 10:46:00 Erectile dysfunctio n 960895848 Active 2022 Not Available [facility] 3 10:46:00 Contusion of anterior abdominal wall 845322920 Active 2022 Ward Lewis MD [address], [place], [address] , [place] [facility] 3 16:51:55 Gastroesop hageal reflux disease 705930756 Active 2022 Ward Lewis MD [address], [place], [address] , [facility] 3 17:04:58 Obese class II [id number] 05 Active 2022 Ward Lewis MD [address], [address], [place], [address] , [facility] 3 17:17:38 Disorder of prostate 12243098 Active 2022 Ward Lewis MD [address], [address], [place], [address] , [facility] 3 17:21:37 Bilateral osteoarthr itis of knees 0436778475258 07 Active 2022 CRYSTAL Soto, [place] [facility] 3 15:00:15 Osteoarthr itis of right knee joint 6153561333797 00 Active 2022 CRYSTAL Soto, [place] [facility] 3 11:30:26 Acute sinusitis 91916146 Active 2023 Ward Lewis MD [address], [address], [place], [address] , [facility] 4 13:59:40 Cough 47852396 Active 2023 Ward Lewis MD [address], [address], [place], [address] , [facility] 4 12:44:07 Obese class I [id number] 07 Active 2023 Ward Lewis MD [address], [address], [place], [address] , [facility] 4 16:16:48 Notes:Some problems listed i n Document: #[id number] could not be added to this patient's chart. Please review this document and add these problems to the patient's chart manually as needed. Problem Notes None recorded. Procedures Surgical History Date Name Laterality Status Provider Name and Address Organization Details Recorded Time 12/05/19 25 Nail Debridement completed Davin Mohr DPM [address], [address], [place], [address], [facility] 12/06/2024 09:03:37 08/30/20 24 Medicare Wellness CPT Code, subsequent completed Miranda Saldivar RN [facility] 08/30/2024 15:49:37 06/14/20 24 Nail Debridement completed Davin Mohr DPM [address], [address], [place], [address], [facility] 07/04/2024 12:21:02 03/13/20 24 Nail Debridement completed Davin Mohr DPM [address], [address], [place], [address], [facility] 04/05/2024 14:48:49 12/06/19 24 Nail Debridement completed Davin Mohr DPM [address], [address], [place], [address], [facility] 12/08/2023 21:38:43 09/06/20 23 Nail Debridement completed Davin Mohr DPM [address], [address], [place], [address], [facility] 09/07/2023 09:31:31 08/29/20 23 Medicare Wellness CPT Code, subsequent completed Miranda Saldivar RN [facility] 08/29/2023 17:09:34 05/31/20 23 Nail Debridement completed Davin Mohr DPM [address], [address], [place], [address], [facility] 06/07/2023 09:07:10 03/01/20 23 Nail Debridement completed Davin Mohr DPM [address], [address], [place], [address], [facility] 03/01/2023 16:42:37 01/18/20 23 Cystoscopy with Stent Removal - Dictation completed Matthew Berry MD [address], [address], [place], [address], [facility] 01/17/2023 16:36:24 Colonoscopy completed Not Available [facility] 12/08/2022 05:53:53 Stent completed Not Available [facility] 10/2022 05:53:53 Hernia Repair completed Not Available [facility] 12/08/2022 05:53:53 procedure on wrist completed Not Available [facility] 12/08/2022 05:53:53 procedure on elbow completed Not Available [facility] 12/08/2022 05:53:53 Hand completed Not Available [facility] 10/2022 05:53:53 Imaging Results Imaging Date Name Status LastModified by Organization Details LastModified Time 08/06/2024 pharmacologic nuclear stress test completed [address] [facility] [address], [place], [address], 08/07/2024 07:58:15 08/09/2024 US, doppler, venous completed [address] [facility] [address], [place], [address], 08/10/2024 09:13:19 01/08/2025 imaging/diagnosti c result active [address], [address], 01/08/2025 15:58:33 01/08/2025 imaging/diagnosti c result active [address], [address], 01/08/2025 16:03:52 01/08/2025 imaging/diagnosti c result active [address], [address], 01/08/2025 16:11:15 01/08/2025 imaging/diagnosti c result active [address], [address], 01/08/2025 16:29:42 Procedure Notes None recorded. Medical Equipment None Reported. Allergies No known drug allergies Medications Name Sig Start Date Stop Date Status Note LastModified by Organization Details LastModified Time vitamin b12 1000mcg tr tab TAKE 1 TABLET BY MOUTH ONCE DAILY. active Not Available Not Available No t Available cyclobenzap rine 10 mg tablet ONE THREE TIMES A DAY active Not Available Not Available No t Available amoxicillin 500 mg capsule Take 1 capsule 3 times a day by oral route for 10 days. active Not Available Not Available No t Available furosemide 40 mg tablet TAKE ONE TABLET BY MOUTH ONCE DAILY 02/26 completed Not Available Not Available Not Available metolazone 2.5 mg tablet Take 1 tablet every day by oral route. active Not Available Not Available No t Available methocarbam ol 500 mg tablet TAKE 1 TABLET BY MOUTH EVERY 8 HOURS NEEDED DX: M54.16 11/30 completed Not Available Not Available Not Available metformin 500 mg tablet TAKE 1 TABLET BY MOUTH TWICE DAILY active Not Available Not Available No t Available hydrocodone 7.5 mg-ibuprofe n 200 mg tablet 02/26 completed Not Available Not Available Not Available Xanax 0.5 mg tablet TAKE ONE TABLET ONE HOUR BEFORE PROCEDURE AND IF NEED REPEAT AT TIME OF PROCEDURE F41.9 01/08 completed Not Available Not Available Not Available carvedilol 6.25 mg tablet TAKE 1 TABLET BY MOUTH TWICE DAILY 08/29 completed Not Available Not Available Not Available ammonium lactate 12 % lotion Apply 1 applicati on twice a day by topical route as needed. 01/17 completed Not Available Not Available Not Available trazodone 50 mg tablet TAKE 1 TABLET BY MOUTH TWICE DAILY active Not Available Not Available No t Available enalapril maleate 5 mg tablet TAKE 1 TABLET BY MOUTH AT BEDTIME active Not Available Not Available No t Available oxybutynin chloride ER 10 mg tablet,exte nded release 24 hr TAKE 1 TABLET BY MOUTH ONCE DAILY active Not Available Not Available No t Available azithromyci n 250 mg tablet active Not Available Not Available Not Available benzonatate 200 mg capsule TAKE 1 CAPSULE BY MOUTH THREE TIMES DAILY 12/18 completed Not Available Not Available Not Available hydrocodone 5 mg-acetamin ophen 325 mg tablet Take 1 tablet every 6 hours by oral route as needed. 09/27 completed Not Available Not Available Not Available gabapentin 400 mg capsule TAKE 1 CAPSULE BY MOUTH THREE TIMES DAILY active Not Available Not Available No t Available potassium chloride ER 10 mEq tablet,exte nded release Take 1 tablet every day by oral route. 02/26 completed Not Available Not Available Not Available ciprofloxac in 500 mg tablet 06/24 completed Not Available Not Available Not Available hydrocodone 10 mg-acetamin ophen 325 mg tablet Take 1 tablet every 6 hours by oral route as needed. 02/26 completed Not Available Not Available Not Available aspirin 81 mg tablet,jayla yed release Take 1 tablet every day by oral route. 2012 active Not Available Not Available Not Avai lable tramadol 50 mg tablet Take 1 tablet by mouth three times daily as needed 2024 active Not Available Not Available Not Avai lable simvastatin 40 mg tablet TAKE 1 TABLET BY MOUTH ONCE DAILY active Not Available Not Available No t Available carvedilol 3.125 mg tablet TAKE 1 TABLET BY MOUTH TWICE DAILY 09/09 completed Not Available Not Available Not Available Tessalon Perles 100 mg capsule Take 1 capsule 3 times a day by oral route. active Not Available Not Available No t Available amoxicillin 875 mg tablet 02/26 completed Not Available Not Available Not Available Kenalog 10 mg/mL suspension for injection in office 12/18 completed [facility]: 0003- [id number]- 20 Not Available Not Available Not Available potassium citrate ER 10 mEq (1,080 mg) tablet,exte nded release TAKE 1 TABLET BY MOUTH TWICE DAILY active Not Available Not Available No t Available cephalexin 500 mg capsule Take 1 capsule 4 times a day by oral route. active Not Available Not Available No t Available pantoprazol e 40 mg tablet,jayla yed release TAKE 1 TABLET BY MOUTH ONCE DAILY active Not Available Not Available No t Available gabapentin 300 mg capsule TAKE 1 CAPSULE BY MOUTH THREE TIMES DAILY active Not Available Not Available No t Available allopurinol 300 mg tablet TAKE 1 TABLET BY MOUTH ONCE DAILY active Not Available Not Available No t Available cyanocobala min (vit B-12) 1,[address] 1 tablet every day by sublingua l route. active Not Available Not Available No t Available hydrochloro thiazide 25 mg tablet TAKE 3 TABLETS BY MOUTH ONCE DAILY 12/31 completed Not Available Not Available Not Available mupirocin 2 % topical ointment APPLY A SMALL AMOUNT TO THE AFFECTED AREA BY TOPICAL ROUTE twice a day for seven days 12/31 completed Not Available Not Available Not Available triamterene 75 mg-hydrochl orothiazide 50 mg tablet Take 1 tablet every day by oral route. 10/29 completed Not Available Not Available Not Available levofloxaci n 500 mg tablet Take 1 tablet every 24 hours by oral route. 02/26 completed Not Available Not Available Not Available oxycodone-a cetaminophe n 7.5 mg-325 mg tablet Take one to 2 tablets every 6 hours as needed for pain. active Not Available Not Available No t Available [place] 7.5 mg-325 mg tablet Take 1 tablet every 6 hours by oral route. active Not Available Not Available No t Available Vitamin C 250 mg tablet Take 1 tablet every day by oral route. 2021 active Not Available Not Available Not Avai lable carbidopa 25 mg-levodopa 100 mg tablet TAKE 1 TABLET BY MOUTH THREE TIMES DAILY active Not Available Not Available No t Available ondansetron 4 mg disintegrat ing tablet 09/27 completed Not Available Not Available Not Available naproxen 500 mg tablet Take 1 tablet twice a day by oral route. active Not Available Not Available No t Available Microlet Lancet active Not Available Not Available Not Available amoxicillin 875 mg-potassiu m clavulanate 125 mg tablet TAKE 1 TABLET BY MOUTH EVERY 12 HOURS 12/18 completed Not Available Not Available Not Available Mucinex 600 mg tablet, extended release Take 1 tablet every 12 hours by oral route. 02/18 completed Not Available Not Available Not Available rosuvastati n 10 mg tablet TAKE 1 TABLET BY MOUTH ONCE DAILY AT NIGHT active Not Available Not Available No t Available Klor-Con M20 mEq tablet,exte nded release once daily active Not Available Not Available No t Available Klor-Con M10 mEq tablet,exte nded release TAKE ONE TABLET BY MOUTH TWICE DAILY 12/31 completed Not Available Not Available Not Available pregabalin 100 mg capsule TAKE 1 CAPSULE BY MOUTH TWICE DAILY 12/18 completed Not Available Not Available Not Available Lyrica 50 mg capsule Take 1 capsule(s ) twice a day by oral route. 03/28 completed Not Available Not Available Not Available cranberry 4200 mg once daily 11/09 completed Not Available Not Available Not Available Gas-X Extra Strength daily 2021 active Not Available Not Available Not Avai lable Stool Softener 06/15 completed Not Available Not Available Not Available Vytorin 10-40 once daily 2012 active Not Available Not Available Not Avai lable lidocaine (PF) 10 mg/mL (1 %) injection solution In office injection administe red by the provider 01/14 completed [facility]: [phone]- [phone]- [phone] Not Available Not Available Not Available lidocaine 2 % mucosal jelly in applicator Take by mucous route. 01/17 completed Not Available Not Available Not Available Brilinta 90 mg tablet TAKE 1 TABLET BY MOUTH TWICE DAILY 09/09 completed Not Available Not Available Not Available ropivacaine (PF) 5 mg/mL (0.5 %) injection solution in office 12/18 completed Not Available Not Available Not Available OneTouch Verio test strips USE 1 STRIP TO CHECK GLUCOSE ONCE DAILY active Not Available Not Available No t Available Myrbetriq 50 mg tablet,exte nded release TAKE 1 TABLET BY MOUTH ONCE DAILY active Not Available Not Available No t Available Jardiance 10 mg tablet TAKE 1 TABLET BY MOUTH ONCE DAILY active Not Available Not Available No t Available OneTouch Delica Plus Lancet 33 gauge use to test blood glucose daily DX E11.9 active Not Available Not Available No t Available Gemtesa 75 mg tablet TAKE 1 TABLET BY MOUTH ONCE DAILY 12/18 completed Not Available Not Available Not Available Vitals Date Recorded Body height Heart rate Systolic blood pressure Diastolic blood pressure Provider Name and Address Organization Details Last Updated DateTime 03/13/2024 171.45 cm 71 /min 140 mm[Hg] 76 mm[Hg] Sandrine Pittman [facility] 03/13/2024 16:44:41 Date Recorded Body height Body mass index (BMI) Body weight Heart rate Body temperature Oxygen saturation Oxygen saturation in Arterial blood by Pulse oximetry Systolic blood pressure Diastolic blood pressure Provider Name and Address Organization Details Last Updated DateTime 171.45 cm 33.3 kg/m2 52476.9 5 g 74 /min 97.2 [degF] 98 % 98 % 116 mm[Hg] 62 mm[Hg] CRYSTAL Lyles [employer] 16:08:09 Date Recorded Body height Body mass index (BMI) Body weight Heart rate Respiratory rate Body temperature Systolic blood pressure Diastolic blood pressure Provider Name and Address Organization Details Last Updated DateTime 4 171.45 cm 33.3 kg/m2 66048.9 5 g 76 /min 14 /min 98.6 [degF] 120 mm[Hg] 64 mm[Hg] Kimmie Ordonez MA [facility] 4 16:44:52 Date Recorded Body height Body mass index (BMI) Body weight Heart rate Body temperature Oxygen saturation Oxygen saturation in Arterial blood by Pulse oximetry Systolic blood pressure Diastolic blood pressure Provider Name and Address Organization Details Last Updated DateTime 4 171.45 cm 32.9 kg/m2 67176.1 7 g 73 /min 97 [degF] 97 % 97 % 124 mm[Hg] 82 mm[Hg] CRYSTAL Lyles [facility] 4 15:43:23 Date Recorded Body height Body mass index (BMI) Body weight Heart rate Respiratory rate Oxygen saturation Oxygen saturation in Arterial blood by Pulse oximetry Systolic blood pressure Diastolic blood pressure Provider Name and Address Organization Details Last Updated DateTime 5 171.45 cm 32.9 kg/m2 52198.1 7 g 104 /min 14 /min 98 % 98 % 102 mm[Hg] 53 mm[Hg] Chitra Lyle [facility] 5 16:54:08 Social History Question Answer Notes LastModified by Organization Details LastModified Time Tobacco Smoking Status Never Smoker Not Available [facility] 12/08/2022 05:53:40 Do You Have An Advance Directive? No [id number] Information not available 12/08/2022 What Is Your Level Of Alcohol Consumption? None MIGRATION.030 [id number] Information not available 12/08/2022 Are You Blind Or Do You Have Difficulty Seeing? No Wears Glasses [email or web address] Information not available 08/30/2024 What Is Your Level Of Caffeine Consumption? Moderate MIGRATION.030 [id number] Information not available 12/08/2022 In The 14 Days Before Symptom Onset, Have You Had Close Contact With A Laboratory-confi rmed COVID-19 While That Case Was Ill? No MIGRATION.030 [id number] Information not available 12/08/2022 In The 14 Days Before Symptom Onset, Have You Had Close Contact With A Person Who Is Under Investigation For COVID-19 While That Person Was Ill? No [id number].[id number] [id number] Information not available 12/08/2022 Are You Deaf Or Do You Have Serious Difficulty Hearing? No MIGRATION.0301 [id number] Information not available 12/08/2022 What Type Of Diet Are You Following? REGULAR MIGRATION.0301 [id number] Information not available 12/08/2022 Have There Been Any Changes To Your Family Or Social Situation? No MIGRATION.0301 [id number] Information not available 12/08/2022 What Is The Fluoride Status Of Your Home? Unknown MIGRATION.0301 [id number] Information not available 12/08/2022 Are There Any Guns Present In Your Home? No [email or web address] Information not available 08/29/2023 Do You Use Insect Repellent Routinely? No MIGRATION.0301 [id number] Information not available 12/08/2022 [facility] M[facility] [id number] Information not available 12/08/2022 Guns Present In The Home? No [email or web address] Information not available 08/30/2024 Are You Able To Care For Yourself? Yes Information not available 08/29/2023 Are You Blind Or Do Yo Have Difficulty Seeing? No [email or web address] Information not available 08/29/2023 Are You Deaf Or Do You Have Serious Difficulty Hearing? No [email or web address] Information not available 08/29/2023 Live Alone Of With Others? With Others With Daughter [email or web address] Information not available 08/29/2023 Do You Have A Medical Power Of Bomb Loader? No MIGRATION.0301 [id number] Information not available 12/08/2022 What Was The Date Of Your Most Recent Tobacco Screening? 08/30/2024 [email or web address] Information not available 08/30/2024 Do You Have Any Pets? No [email or web address] Information not available 08/29/2023 What Is Your Relationship Status? [email or web address] Information not available 08/29/2023 Do You Use Your Seat Belt Or Car Seat Routinely? Yes MIGRATION.0301 [id number] Information not available 12/08/2022 Do You Have Smoke And Carbon Monoxide Detectors In Your Home? No MIGRATION.0301 [id number] Information not available 12/08/2022 Are You Passively Exposed To Smoke? No MIGRATION.0301 [id number] Information not available 12/08/2022 Are There Any Smokers In Your House? No [email or web address] Information not available 08/29/2023 Do You Feel Stressed (tense, Restless, Nervous, Or Anxious, Or Unable To Sleep At Night)? [id number] MIGRATION.0301 [id number] Information not available 12/08/2022 Do You Use Any Illicit Or Recreational Drugs? No MIGRATION.0301 [id number] Information not available 12/08/2022 Do You Use Sunscreen Routinely? No MIGRATION.0301 [id number] Information not available 12/08/2022 Has Tobacco Cessation Counseling Been Provided? No MIGRATION.0301 [id number] Information not available 12/08/2022 Have You Recently Traveled Abroad? No MIGRATION.0301 [id number] Information not available 12/08/2022 Do You Or Have You Ever Used Any Other Forms Of Tobacco Or Nicotine? No MIGRATION.0301 [id number] Information not available 12/08/2022 Sex: Unknown Functional Status Question Answer Note LastModified by Organizat ion Details LastModified Time Do you have difficulty walking or climbing stairs? Yes [id number] Information not available 12/08/2022 Do you have transportation difficulties? No MIGRATION.[id number] 026 Information not available 12/08/2022 Are you able to walk? YESASSIST [email or web address] Information not available 08/29/2023 Do you have difficulty doing errands alone? Yes [email or web address] Information not available 08/29/2023 Are you able to care for yourself? Yes [id number] Information not available 12/08/2022 Do you have difficulty dressing or bathing? No [email or web address] Information not available 08/30/2024 What is your exercise level? None MIGRATION.[id number] 026 Information not available 12/08/2022 Mental Status Question Answer Note LastModified by Organizat ion Details LastModified Time Do you have difficulty concentrating, remembering or making decisions? No MIGRATION.[id number] 6 Information not available 12/08/2022 Family History Relationship Description Onset Age of this Age Resolved Age Notes LastModified by Organization Details LastModified Time Father Family history of stroke [id number] Not available 12/08/2022 05:53:55 Notes:Mother Living 93 years old Father 85 years old 2 Brothers 2 Living 1 Sisters 1 Living Mother Hx: DM, HTN Father Hx: AAA,CVA Medical History Condition Response NERVE DISEASE N BLINDNESS N RHEUMATIC FEVER N KIDNEY STONES Y BLADDER PROBLEMS N MRSA N OTHER # 1 N POLIO N LUNG DISEASE/DISORDER N RADIATION / CHEMOTHERAPY N COPD N Other # 2 N BLOOD DISEASES N SURGERY N EAR OR HEARING PROBLEMS N MUMPS N BOWEL PROBLEMS N DEPRESSION (INCLUDING POST ) N STROKE/TIA N ULCERS N BENIGN PROSTATIC HYPERPLASIA N MEASLES N MYOCARDIAL INFARCTION N OBESITY N GERD/NAUSEA N ANEURYSM N URINARY/BLADDER/KIDNEY PROBLEMS N CORONARY ARTERY DISEASE (CAD) Y ADDICTION CONCERNS N ENDOMETRIOSIS N Impotence N USE OF BLOOD THINNERS N SKIN PROBLEMS N GASTROINTESTINAL DISORDER N PERIPHERAL VASCULAR DISEASE N MUSCLE,JOINT OR BONE PROBLEMS Y GASTROINTESTINAL BLEEDING N BLOOD CLOTS N ASTHMA N CATARACTS N ERECTILE DYSFUNCTION N VARICOSITIES N GI PROBLEMS N Low Testosterone N INFERTILITY N AIDS/HIV N CHEMOTHERAPY / RADIATION N LIVER DISEASE N MALE HYPOGONADISM N HYPERTENSION Y Deficiency N ANXIETY DISORDER N BLOOD TRANSFUSION N ANEMIA/BLOOD DISORDER N CHRONIC EAR INFECTIONS N BRONCHITIS N TUBERCULOSIS N GLAUCOMA N FOOT PROBLEM N DIVERTICULITIS N SLEEP APNEA N CHICKENPOX N INFECTIOUS DISEASE N HEART ARRHYTHMIA N PROSTATE N INSOMNIA N HIGH CHOLESTEROL / HYPERLIPIDEMIA N HYPERTHYROIDISM N EYE PROBLEMS N NEUROLOGICAL PROBLEMS Y EDEMA Y CHRONIC PAIN SYNDROME N HYPOTHYROIDISM N CAROTID BLOCKAGE N CONSTIPATION N BACK / NECK PROBLEMS Y HAVE YOU BEEN HOSPITALIZED OR SEEN IN [facility] IN THE PAST YEAR ? N ATHEROSCLEROSIS N BREAST PROBLEMS N DIALYSIS N ECZEMA N OSTEOPOROSIS N ARTHRITIS Y NO SIGNIFICANT PAST MEDICAL HISTORY N APPENDICITIS N DIABETES, TYPE Y BAD TEETH N ENT N HEARTBURN / REFLUX N AUTISM SPECTRUM DISORDER (ASD) N HEPATITIS / LIVER DISEASE N GOUT Y SLEEP DISORDER N ALZHEIMER'S DISEASE N Brain Problems N HERPES N DEMENTIA N HEADACHES/MIGRAINES N SEIZURES/EPILEPSY N VASCULAR DISEASE N PACEMAKER N Blood Disorder N DIZZINESS N HEART DISEASE/HEART PROBLEMS N KIDNEY DISEASE N MULTIPLE SCLEROSIS N CARDIAC ARRHYTHMIA N CANCER: SPECIFY N ATRIAL FIBRILLATION N Gall Stones N PULMONARY EMBOLISM N AUTOIMMUNE DISEASE N Immunizations Vaccine Type Date Status Note Provider Nam e and Address Organization Details Recorded Time Influenza, split virus, trivalent, preservative 4 completed Not Available [facility] 04/13/2023 04:03:34 SARS-COV-2 (COVID-19) vaccine, UNSPECIFIED 2 completed Not Available [facility] 04/13/2023 04:03:34 SARS-COV-2 (COVID-19) vaccine, UNSPECIFIED 1 completed Not Available [facility] 04/13/2023 04:03:34 SARS-COV-2 (COVID-19) vaccine, UNSPECIFIED 1 completed Not Available [facility] 04/13/2023 04:03:34 SARS-COV-2 (COVID-19) vaccine, UNSPECIFIED 1 completed Not Available [facility] 04/13/2023 04:03:34 pneumococcal polysaccharide PPV23 9 completed Not Available [facility] 04/13/2023 04:03:34 Influenza, high-dose, quadrivalent, PF 1 completed Not Available [facility] 04/13/2023 04:03:34 Influenza, high-dose, quadrivalent, PF 2 completed Not Available [facility] 04/13/2023 04:03:34 Influenza, high-dose, quadrivalent, PF 1 completed Not Available [facility] 04/13/2023 04:03:34 Influenza, high-dose, trivalent, PF 8 completed Not Available [facility] 04/13/2023 04:03:34 Influenza, high-dose, trivalent, PF 7 completed Not Available [facility] 04/13/2023 04:03:34 Influenza, split virus, quadrivalent, preservative 6 completed Not Available [facility] 04/13/2023 04:03:34 Pneumococcal conjugate PCV 13 5 completed Not Available [facility] 04/13/2023 04:03:34 Influenza, high-dose, quadrivalent, PF 3 completed Ward Lewis MD [address] [place] [address], [address], [address], [facility] [employer] [facility] 08/29/2023 17:21:55 Past Encounters Encounter ID Performer Location Encounter Start Date Encounter Closed Date Diagnosis/Indication Diagnosis SNOMED-CT Code Diagnosis ICD10 Code Diagnosis Note [id number] [facility] [place] [address], [address] [address] 2020 00:00:00 2020 15:59:58 [id number] [facility] [place] [address] [place] [address] 01/08/2021 00:00:00 01/08/2021 15:25:35 [id number] [facility] [place] [address] [address] 01/14/2021 00:00:00 01/14/2021 16:35:37 [id number] [facility] [address] [place] [address] 01/29/2021 00:00:00 01/29/2021 15:33:50 [id number] [facility] [place] [address] [address] 05/13/2021 00:00:00 05/13/2021 16:39:09 [id number] _ATHENA_M IGRATION_ DEFAULT_1 _1 , 06/03/2021 00:00:00 06/03/2021 17:10:23 [id number] [facility] [place] [address] [address] 09/16/2021 00:00:00 09/16/2021 16:00:20 [id number] _ATHENA_M IGRATION_ DEFAULT_1 _1 , 11/30/2021 00:00:00 12/07/2021 08:55:33 [id number] [facility] [place] [address] [address] 12/14/2021 00:00:00 12/14/2021 11:48:55 [id number] [facility] [place] [address] [address] 01/13/2022 00:00:00 01/13/2022 15:50:10 [id number] [facility] [place] [address], [address] [place] [address] 03/18/2022 00:00:00 03/18/2022 17:56:05 [id number] [facility] [place] [address] [facility], [place] [address] [place] [address] 05/12/2022 00:00:00 05/12/2022 16:11:24 [id number] [facility] [place] [address], [address] [place] [address] 05/20/2022 00:00:00 05/20/2022 11:28:49 [id number] [facility] [place] [address] [place] [address] 06/15/2022 00:00:00 06/15/2022 16:59:31 [id number] [facility] [place] [address], [address] [place] [address] 08/18/2022 00:00:00 08/24/2022 13:58:51 [id number] [facility] [place] [address] [place] [address] 08/26/2022 00:00:00 08/26/2022 16:03:37 [id number] [facility] [place] [address] 4 [facility], [address] [place] [address] 09/15/2022 00:00:00 09/15/2022 16:12:06 [id number] [facility] [place] [address] [place] [address] 10/19/2022 00:00:00 10/19/2022 17:50:35 [id number] [facility] [place] [address] [place] [address] 11/09/2022 00:00:00 11/09/2022 14:56:59 [id number] [facility] [place] [address], [address] [place] [address] 11/30/2022 00:00:00 12/01/2022 09:59:52 [id number] [facility] [address] [place] [address] 12/07/2022 00:00:00 12/07/2022 17:15:56 [id number] MD KAYLI Joseph[facility] [place] [address] [address] 12/29/2022 16:15:27 12/29/2022 16:44:09 Coronary arteriosclerosis 37288974 I25.10 Essential hypertension 98574225 I10 Pure hypercholesterolemia 083499594 E78.00 Type 2 nate betes mellitus 07262161 E11.9 Neuropathy due to diabetes mellitus 393431078 E11.40 Gout 19878770 M10.9 [id number] MD KRISTOPHER Farmer [facility] [address] [place] [address] 01/17/2023 15:49:20 01/17/2023 16:58:16 Kidney stone 79541615 N20.0 SP ureterosco py, suggested continue high fluid, low sodium diet. Get fu ultrasound in a month. [id number] Davin Mohr DPM [facility] [place] [address] [facility], [address] [place] [address] 03/01/2023 16:09:18 03/01/2023 16:46:17 Diabetic peripheral neuropathy 465051708 E11.40 Patient educated on neuropathy , diabetes, diabetic diet, and daily foot exams. Patient is to check feet daily for new wounds, blisters, redness to prevent infection and ulceration s to the feet. Patient will return to clinic in 3 months for diabetic foot workup. Dystrophia unguium 35320 009 L60.3 Nails 1 through 10 were debrided with sharp mechanical debridemen t without incident. Nails were debrided and greater than 50% length and thickness where needed. [id number] MD KRISTOPHER Farmer [facility] [address] [place] [address] 03/08/2023 16:35:42 03/08/2023 18:00:14 Kidney stone 69304161 N20.0 Sp bilat stone removal, needs high fluid, low sodium diet. Urgent earline mi to urinate 43501509 R39.15 On med , suggested since he only leaks when after sitting would void prior to sitting. Erectile dysfunction 860 626523 F52.21 No sign of infection. discussed removal but would have trouble grabing penis . He will think about it. [id number] Ward Lewis MD [facility] Internal Med [place] [address] [address] 04/18/2023 16:32:21 04/18/2023 16:55:02 Coronary arteriosclerosis 98130635 I25.10 Essential hypertension 81881194 I10 Pure hypercholesterolemia 403876023 E78.00 Type 2 nate betes mellitus 68698654 E11.9 Contusion of anterior abdominal wall 103092714 S30.1XXA [id number] Davin Mohr DPM [facility] [place] [address] [facility], [address] [place] [address] 05/31/2023 16:29:06 06/07/2023 13:15:24 Diabetic peripheral neuropathy 510481175 E11.40 Glycemic control per PCPContinu e diabetic shoe gearCheck feet daily for wounds infectionF ollow-up in 3 months for diabetic foot care Dystrophia unguium 30019 009 L60.3 Nails 1 through 10 were debrided with sharp mechanical debridemen t without incident. Nails were debrided and greater than 50% length and thickness where needed. Unable to cut own toenails 513651541 Z74.1 [id number] Ward Lewis MD [facility] Internal Med [place] [address] [address] 08/29/2023 16:46:29 08/29/2023 17:28:47 Administration of influenza vaccine 51624629 Z23 Adult [facility] th examination 472356966 Z00.00 Screening for disorder 535695170 Z13.9 Essential hypertension 72356949 I10 Pure hypercholesterolemia 687703743 E78.00 Type 2 nate betes mellitus 33017759 E11.9 Obese class II 896616206 1 37115 E66.9 Disorder of prostate 302 82086 N42.9 [id number] Davin Mohr DPM [facility] [place] [address] [facility], [address] [place] [address] 09/06/2023 16:48:42 09/07/2023 09:55:24 Diabetic peripheral neuropathy 173634501 E11.40 Glycemic control per PCPContinu e diabetic shoe gearCheck feet daily for wounds infectionF ollow-up in 3 months for diabetic foot care Dystrophia unguium 59247 009 L60.3 Nails 1 through 10 were debrided with sharp mechanical debridemen t without incident. Nails were debrided and greater than 50% length and thickness where needed. [id number] LEILANI Mercado [facility] [place] [address] [facility] [address] [place] [address] 09/09/2023 14:11:25 09/09/2023 16:05:36 Bilateral osteoarthritis of knees 0714778158 09020 M17.0 [id number] LEILANI Mercado [facility] [place] [address] [facility] [address] [place] [address] 09/16/2023 11:22:39 09/16/2023 13:01:22 Osteoarthritis of right knee joint 9471856928 32963 M17.11 [id number] Davin Mohr DPM [facility] [place] [address] [facility], [address] [place] [address] 12/06/2023 16:42:17 12/09/2023 07:53:56 Diabetic peripheral neuropathy 849739091 E11.40 Glycemic control per PCPContinu e diabetic shoe gearCheck feet daily for wounds infectionF ollow-up in 3 months for diabetic foot care Dystrophia unguium 15513 009 L60.3 Nails 1 through 10 were debrided with sharp mechanical debridemen t without incident. Nails were debrided and greater than 50% length and thickness where needed. [id number] Ward Lewis MD [facility] [place] [address], [address] [place] [address] 12/19/2023 16:31:46 12/19/2023 17:01:47 Coronary arteriosclerosis 31825162 I25.10 Essential hypertension 21295715 I10 Pure hypercholesterolemia 804362600 E78.00 Type 2 nate betes mellitus 66848741 E11.9 Obese class II 532952012 1 61867 E66.9 Gastroesop hageal reflux disease 572650838 K21.9 Gout 67262789 M10.9 [id number] Davin Mohr DPM [facility] Podiatry [address], [address] [address] 03/13/2024 16:27:58 04/05/2024 15:10:59 Diabetic peripheral neuropathy 070099787 E11.40 Glycemic control per PCPContinu e diabetic shoe gearCheck feet daily for wounds infectionF ollow-up in 3 months for diabetic foot care Dystrophia unguium 35697 009 L60.3 Nails 1 through 10 were debrided with sharp mechanical debridemen t without incident. Nails were debrided and greater than 50% length and thickness where needed. Hammer toe 663374036 M20 .41 M20.42 continue conservati ve offloading [id number] Ward Lewis MD [facility] [address] [place] [address] , [place] [address] 04/26/2024 15:44:28 04/26/2024 16:26:36 Coronary arteriosclerosis 46188877 I25.10 Essential hypertension 76460223 I10 Pure hypercholesterolemia 061489794 E78.00 Type 2 nate betes mellitus 58745860 E11.9 Chronic pain syndrome 37 9136781 G89.4 Obese class I 8048513142 67491 E66.9 Gout 16810307 M10.9 [id number] Davin Mohr DPM [facility] Podiatry [address], [address] [address] 06/14/2024 16:26:15 07/04/2024 15:05:20 Type 2 diabetes mellitus 38324148 E11.9 controlled diabetes per PCP recommenda tions Unable to cut own toenails 662597008 Z74.1 Diabetic p eripheral neuropathy 055615296 E11.40 Glycemic control per PCPContinu e diabetic shoe gearCheck feet daily for wounds infectionF ollow-up in 3 months for diabetic foot care Dystrophia unguium 50462 009 L60.3 Nails 1 through 10 were debrided with sharp mechanical debridemen t without incident. Nails were debrided and greater than 50% length and thickness where needed. [id number] Ward Lewis MD [facility] [address] [facility] [address] [place] [address] 08/30/2024 15:17:40 08/30/2024 16:45:11 Adult health examination 109829545 Z00.00 Screening for disorder 751239982 Z13.9 Coronary arteriosclerosis 83761756 I25.10 Essential hypertension 28891294 I10 Gastroesop hageal reflux disease 191040754 K21.9 Gout 18381079 M10.9 Pure hypercholesterolemia 201469207 E78.00 Type 2 nate betes mellitus 57160408 E11.9 Disorder of prostate 302 01880 N42.9 [id number] Davin Mohr DPM [facility] [address] [place] [address] 12/05/2024 16:05:28 12/05/2024 17:34:59 Type 2 diabetes mellitus 00129658 E11.9 controlled diabetes per PCP recommenda tions Diabetic p eripheral neuropathy 147527991 E11.40 Glycemic control per PCPContinu e diabetic shoe gearCheck feet daily for wounds infectionF ollow-up in 3 months for diabetic foot care Dystrophia unguium 09649 009 L60.3 Nails 1 through 10 were debrided with sharp mechanical debridemen t without incident. Nails were debrided and greater than 50% length and thickness where needed. Unable to cut own toenails 030973367 Z74.1 Lymphedema of lower extremity 140803895 I89.0 recommend over-the-c ounter compressio n stockingse levation of legs when at restlow-so dium diet Health Concerns Section Related Observation LastModified by Organization Detai ls LastModified Time None Recorded Concern Status LastModified by Organization Details LastModified Time None Recorded Advance Directives Directive N: Payers Encounter Date Sequence Insurance Name Policy Number Policy Rivera Covered Member ID Rivera Member ID Guarantor Name 03/13/2024 1 [place] Juan Sloan [id number] Devin Sloan 03/13/2024 2 [employer] [place] (MEDICARE SUPPLEMENT) PLAN F Devin Sloan [id number] Devin Sloan 04/26/2024 1 [place] Juan Sloan [id number] Devin Sloan 04/26/2024 2 [employer] [place] (MEDICARE [place]PPLE[place]) PLAN F Devin Sloan [id number] Devin Sloan 06/14/2024 1 [place] Juan Sloan [id number] Devin Sloan 06/14/2024 2 [employer] [place] (MEDICARE [place]PPLE[place]) PLAN F Devin Sloan [id number] Devin Sloan 08/30/2024 1 [place] Juan Sloan [id number] Devin Sloan 08/30/2024 2 [employer] [place] (MEDICARE SUPPLEMENT) PLAN F Devin Sloan [id number] Devin Sloan 12/05/2024 1 [place] Juan Sloan [id number] Devin Sloan 12/05/2024 2 [employer] [place] (MEDICARE SUPPLEMENT) PLAN F Devin Sloan [id number] Devin Sloan Notes Date Note Type Note Provider Name and Address Organization Details Recorded Time text/html . Patient is a 78-year-old male diabetic who returns the office for routine diabetic foot care. Patient states overall he is doing well. Patient states continues have diabetic neuropathy sensations to his feet he denies any open wounds or injury. Patient states was taking Lyrica he has since been switched to gabapentin and has been titrated up and he is still having discomfort. Patient states he would like his nails cut as he is unable to bend over to cut them. Patient denies any intermittent claudication walking or rest pain. Patient denies any other complaints. Davin Mohr, KILLIAN [address] [facility], [address], [place], [address], [place] [facility] 04/05/2024 14:49:15 4 text/html Patient Name: Devin Tee Of Service: April ( 04.26.2024 ): 1945 Age: 78 There has been approximately a 14 lb weight loss since 12/19/2023. This represents approximately a 6.1% change in weight. Weight change attributable to lifestyle changes. Vital Signs:Blood Pressure: Sitting Rt. Arm 116/62Pulse: Sitting 74 /min and RegularRespiratory Rate: 14Height 67.5 in or 1.7 mWeight 216 lb or 98.0 kgBMI 33.3Temperature: 97.2 F or 36.2 CPulse Oximetry: 98 % at rest on no oxygen Chief Complaint: Addressed in HPI Problems or conditions discussed in the HPI were the only ones reviewed during the encounter.Only social and family history addressed in the HPI were reviewed during this encounter. Attendant(s): NoneConstitutional and Systemic Symptoms:none Medication Reconciliation: from medication list. [id number]: Echocardiogram demonstrated estimated ejection fraction of 55%. No significant valvular abnormalities were noted. History of Present Illness #1. Coronary Artery Disease: There has been no change in frequency - duration - intensity in frequency, duration or intensity of chest pain. Other Complaints: none The frequency of anginal attacks is none at all. Additional Symptoms: none Therapy reviewed regarding cardiovascular management includes Aspirin, Enalapril Maleate and Zocor #2. Essential Hypertension: Stage: Stage I Interval Neurological Complaints no headaches, dizziness, weakness, visual changes, ataxia, aphasia and apraxia. No shortness of breath, orthopnea or cardiovascular symptoms. No other symptoms related to end organ damage. Pressure has been under excellent control. Currently normal. No other end organ symptoms or findings. Therapy reviewed regarding management of hypertension and includes salt restriction and Enalapril Maleate. #3. Type II Hypercholesterolaemia: Currently taking medication and tolerating well. No interval complaints of any muscle pain or arthralgia. No significant liver changes with medications. Last lipid panel: excellent control. Therapy reviewed regarding treatment of cholesterol management and include diet and Zocor. #4. Type II Diabetes: Has had no polyuria polyphagia or polydipsia. Has had no hypoglycemic like responses. No new history of any numbness, tingling, weakness or visual problems. No nausea, anorexia or other constitutional symptoms. There has been no foot problems or non healing lesions. The last HAIC was DCCT HAIC: 6.2 Calculated MB mg%. Average blood sugars 125-150 mg%. Checking sugars : several times a week Medication Types Include: Metformin and SGLT2 inhibitors Secondary complications include none. Macro-vascular complications include ASHD. Therapy reviewed regarding diabetic management and include Glucophage and Jardiance and diet only Compliance: good Renal Protection: MICHEL inhibitors Lipid management: statins Urinary microalbumin: A1 . Ophthalmological: has seen eye doctor within the last year #5. Chronic pain management for chronic lumbar and neuropathy Since last examination no significant change since last examination Interval Testing: noneHas tried NSAIDS partial relief requiring additional medication. Pain Description: constant, exacerbated by activity and interferes with enjoyment and ability to perform activities of daily living. Currently seeing or has seen in the past a Weather Algorithm Scientist: No .Pain - Enjoyment of Life - General Activity ScalePain on Average: 4Enjoyment of Live: 5General Activity: 4Enjoyment of Life - General Activity Scale: 4Currently regimen consists of Gabapentin and Tramadol Hydrochloride as prescribed with no evidence of abuse or self prescribing. Current Average Morphine Milligram Approximate Equivalent: 10 mg approximated if taking full dosage daily. Recommend: NA.Benzodiazepines or other hypnotics: no.Alternative pain management modalities (acupuncture - behavior therapy- additional PT - SNRIs) have been discussed and have either been tried in the past or not acceptable alternatives to patient or not available in our location.Will kept medications the same.Urine Testing: not indicated and this time.Controlled substance database yes and no discrepancies or multiple prescribers noted. Pill counts when available have been acceptable. No other signs of any abuse.Patient reports condition is stable and is able to function with the medication. Denies any misuse or adverse effects.TREATMENT OBJECTIVE: Enhance ability to manage pain independently, improved function and sustain quality of life. Recommendations or alternative therapies and lifestyle changes are discussed on each visit. Has shown improvement inf functionality. Has been educated on the side effects,risks and any black box warnings. Has verbalized the dangers of some of the medications regarding driving and cooperating heavy machinery and have advised against this. #6. Hx of obesity. Currently Class 1 Obesity BMI 30-34.99. Has tried numerous dietary support and supplements with no benefit. Instructed on the health consequences of the obese status particularly cancer - diabetes and heart disease. Discussed other modalities of weight loss no. Potential candidate for bariatric surgery: No. Wishes to be evaluated by Dietary: No and was offered to be evaluated and instructed by rn corrections on weight loss diet. Active Medication ListAllopurinol 300 MG (TABLET - ORAL) One Daily For GoutAspirin 81 MG One DailyZocor 40 MG (TABLET - ORAL) One Daily For CholesterolEnalapril Maleate 5 MG (TABLET - ORAL) One DailyVitamin C 250 MG Once DailyGlucophage 500 MG One Bid With FoodGas-x Twice A DayVitamin B12 1000 MCG Once DailyMyrbetriq 50 MG TABLET, FILM COATED, EXTENDED RELEASE Once DailyGabapentin 300 MG CAPSULE One Three Times A DayTramadol Hydrochloride 50 MG (TABLET - ORAL) One Twice DailyPantoprazole 40 MG TABLET One DailyJardiance 10 MG TABLET, FILM COATED Once Daily Vaccination and Ufqzkpjjkqlc0479-03 Gqwqoxetw4151-89 Covid Booster Ictwlm0729-62 Covid Kyrzyv5838-39 Prevnar 13 Dw4244-88 Pneumovax Surgical Raqmebd2185-28 LAD Rhboz9897-97 Left Knee Xlcbycbpyrr3581-19 Rt. Inguinal Agglqp6474-43 Testicular Prosthesis Preventative Vknckfa8412/26/2023 ALBUMIN 4.6 G/DL N012/26/2023 HAIC 6.2 % OF TOTAL HGB H111/02/2022 PSA 0.40 NG/ML N1 GMZYATTKG48/15/2021 COLONOSCOPY ( 10 YEARS ) /05/2007 CT THORAX Social HistorySOCIAL HISTORY:Does not smoke cigarettes. 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 Patient is a 78-year-old male diabetic who returns the office for diabetic foot care he continues have numbness and tingling of his foot but denies any open wounds or pain with walking. Patient would like his nails cut as he is unable to cut them he denies any other complaints to the feet. Davin Mohr, KILLIAN [address] [facility], [place], [address], [facility] [employer] 07/04/2024 12:21:53 4 text/html Patient Name: Devin Tee Of Service: August ( 08.30.2024 ): 1945 Age: 78 There has been approximately a 3 lb weight loss since 04/26/2024. This represents approximately a 1.4% change in weight. Weight change attributable to lifestyle changes. Vital Signs:Blood Pressure: Sitting Rt. Arm 124/82Pulse: Sitting 73 /min and RegularRespiratory Rate: 16Height 67.21 in or 1.7 mWeight 213 lb or 96.6 kgBMI 33.1DCCT HAIC: 6.5 Calculated MB mg%Pulse Oximetry: 97 % at rest on no oxygen Chief Complaint: Addressed in HPI Problems or conditions discussed in the HPI were the only ones reviewed during the encounter.Only social and family history addressed in the HPI were reviewed during this encounter. A significant, separate E/M service was performed to evaluate the current and new problems. Attendant(s): NoneConstitutional and Systemic Symptoms:none Medication Reconciliation: from medication list. Afpkqbkzpfa06-18-0912: Echocardiogram demonstrated estimated ejection fraction of 55%. No significant valvular abnormalities were noted. 08-06-2024: Cardiac perfusion PET-CT scan. Nonspecific ST abnormalities noted. Normal post basal dilator infusion with no ischemic ST or T-wave changes. Global ventricular function 52%. Left ventricular ejection fraction at rest 46%. Normal myocardial perfusion with no evidence of any ischemia or scar. 08-09-2024: venous Doppler negative for any deep vein thrombosis. Venous insufficiency of the left saphenous femoral junction. Significant venous insufficiency of the great saphenous vein bilaterally. Significant venous insufficiency of the left small saphenous vein. History of Present Illness Reviewed the findings of the preventative health visit. Addressed all areas with the patient, patient's family or caregivers. Preventative examinations and testing immunizations - vaccinations, colonic neoplasm screening and PSA all reviewed and ordered where patient was amenable to the recommendations. Cognitive function was normal. Depression addressed and where necessary medications were adjusted or instituted. End of life and living will briefly discussed with patient and where these can be filled out and legally executed. Other blood and imaging studies were ordered if considered necessary. Other recommendations may be found in the encounter note. #1. Coronary Artery Disease: There has been no change in frequency - duration - intensity in frequency, duration or intensity of chest pain. Other Complaints: none The frequency of anginal attacks is none at all. Additional Symptoms: none Therapy reviewed regarding cardiovascular management includes Aspirin, Enalapril Maleate and Zocor #2. Essential Hypertension: Stage: Stage I Interval Neurological Complaints no headaches, dizziness, weakness, visual changes, ataxia, aphasia and apraxia. No shortness of breath, orthopnea or cardiovascular symptoms. No other symptoms related to end organ damage. Pressure has been under excellent control. Currently normal. No other end organ symptoms or findings. Therapy reviewed regarding management of hypertension and includes salt restriction and Enalapril Maleate. #3. Type II Hypercholesterolaemia: Currently taking medication and tolerating well. No interval complaints of any muscle pain or arthralgia. No significant liver changes with medications. Last lipid panel: excellent control. Therapy reviewed regarding treatment of cholesterol management and include diet and Zocor. #4. Type II Diabetes: Has had no polyuria polyphagia or polydipsia. Has had no hypoglycemic like responses. No new history of any numbness, tingling, weakness or visual problems. No nausea, anorexia or other constitutional symptoms. There has been no foot problems or non healing lesions. The last HAIC was DCCT HAIC: 6.5 Calculated MB mg%. CGM: No. Average blood sugars 100-115 mg%. Checking sugars : several times a week. Medication Types Include: Metformin and SGLT2 inhibitors Secondary complications include none. Macro-vascular complications include none. Therapy reviewed regarding diabetic management and include Glucophage and Jardiance Compliance: good Renal Protection: Jardiance Lipid management: statins Urinary microalbumin: A1 . Ophthalmological: has seen eye doctor within the last year. Control: Good Control 6.2 - 7.0 #5. Gouty Arthritis: History of gouty arthritis. Has had no attacks since last examination. Currently taking allopurinol. No interval complaints of any new joint involvement. #6. Hx of esophageal reflux currently stable. Hx of Complications: none The severity, duration and intensity of symptoms have improved. Frequency: most meals Treatment consists medications taken on a regular basis. Current therapy includes Pantoprazole. There has been no nausea, eructation, vomiting, hematemesis, dysphagia and velopharyngeal insufficiency. No change in he frequency or intensity of symptoms. Has had no melena. Has had no . Discussed use of H2 antagonists and the possibility of trying to reduce the frequency of the use of any PPI inhibitors and try H2 antagonists to see if symptoms can be controlled with lease intensive therapy since a number of complications are associated with chronic prolonged use of PPI inhibitors. Active Medication ListAllopurinol 300 MG (TABLET - ORAL) One Daily For GoutAspirin 81 MG One DailyZocor 40 MG (TABLET - ORAL) One Daily For CholesterolEnalapril Maleate 5 MG (TABLET - ORAL) One DailyVitamin C 250 MG Once DailyGlucophage 500 MG One Bid With FoodOxybutynin 10 MG TABLET, EXTENDED RELEASE QdGas-x Twice A DayVitamin B12 1000 MCG Once DailyGabapentin 300 MG CAPSULE One Three Times A DayTramadol Hydrochloride 50 MG (TABLET - ORAL) One Twice DailyPantoprazole 40 MG TABLET One DailyJardiance 10 MG TABLET, FILM COATED Once Daily Vaccination and Immunization( ) 2009-07 PNEUMOVAX( ) 2024-08 INFLUENZA( ) 2014-12 PREVNAR 13 GC( ) 2024-08 PREVNAR 20( ) 2020- COVID PFIZER(X) 2022-07 COVID BOOSTER PFIZER Surgical [id number] Lt. Fqkcejqs6122-24 LAD Macud6423-27 Left Knee [id number] Rt. Inguinal Bggoec0312-60 Testicular Prosthesis Preventative Testing( ) 07/26/2024 Optometry( ) 05/11/2024 Albumin 4.5 G/DL N( ) 05/11/2024 Micro Albumin 1.7 MG/DL N( ) 05/11/2024 HAIC 6.6 % OF TOTAL HGB H( ) 09/02/2023 PSA 0.40 NG/ML N 09/02/2025( ) 08/24/2021 Colonoscopy ( 10 Years ) 08/24/2031( ) 06/17/2007 CT Thorax Social HistorySOCIAL HISTORY:Does not smoke cigarettes. Drinking Hx: 1 Cup of tea per day,< 6 cans of soft drinks per day.Exercise: InfrequentlySexual Hx: Sexually ActiveOccupation: Marketing Content Specialist Family HistoryFAMILY HISTORY:Mother 93 years oldFather 85 years old2 Brothers 2 Living1 Sisters 1 LivingMother Hx: DM, HTNFather Hx: AAA,CVA TEST RESULT RANGE UNITSCBC (INCLUDES DIFF/PLT) Date: 05/11/2024WHITE BLOOD CELL COUNT 7.1 3.8-10.8 THOUSAND/ULHEMOGLOBIN 13.6 13.2-17.1 G/DLHEMATOCRIT 43.8 38.5-50.0 %PLATELET COUNT 240 140-400 THOUSAND/ULCOMPREHENSIVE METABOLIC PANEL, PLASMA Date: 05/11/2024SODIUM 141 135-146 MMOL/LPOTASSIUM 4.4 3.4-4.8 MMOL/LGLUCOSE 109 65-99 MG/DLUREA NITROGEN (BUN) 19 7-25 MG/DLCREATININE 1.02 0.70-1.28 MG/DLEGFR 76 > OR = 60 ML/MIN/1.03D8GJDAPWWFR, TOTAL 0.4 0.2-1.2 MG/DLALKALINE PHOSPHATASE 70 35-144 U/LAST 14 10-35 U/LALT 13 9-46 U/LHEMOGLOBIN A1C Date: 05/11/2024HEMOGLOBIN A1C 6.6 <5.7 % OF TOTAL HGBLIPID PANEL, STANDARD Date: 05/11/2024HOLESTEROL, TOTAL 124 <200 MG/DLHDL CHOLESTEROL 43 > OR = 40 MG/DLTRIGLYCERIDES 132 <150 MG/DLLDL-CHOLESTEROL 59 MG/DL (CALC)T4, FREE Date: 05/11/2024T4, FREE 1.2 0.8-1.8 NG/DLTSH Date: 05/11/2024TSH 3.08 0.40-4.50 MIU/L Ward Lewis MD [address] [facility], [address], [place], [address], [facility] [employer] [facility] 08/30/2024 16:11:27 5 text/html . Patient is a 78-year-old male diabetic who returns the office for diabetic foot care he states the swelling is significantly improved to his lower extremity denies any calf pain. Patient denies any open wounds or infection. Patient states he has difficulty walking but still gets around. Patient is unable to bend down to cut his toenails which are elongated. Patient denies any other complaints. Davin Mohr DPM [address] [facility], [address], [place], [address], [employer] 12/06/2024 09:04:37
--- OUTSIDE RECORDS SUMMARY | 2025-01-08 16:20 | XMS_ITS | Continuity of Care Document ---
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 facilities. It does not include entries that were removed or entered in error. 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 facilities.Medications provided include 1) outpatient medications from the last 15 months, and 2) patient-reported medications. Medication Details Route Status Patient Instructions Prescription Expires Prescription Number Last Dispense Date Ordering Provider Order Date Order Qty Source EMPAGLIFLOZ IN 25MG TAB TAKE ONE-HALF TABLET BY MOUTH ONCE A DAY FOR HEART FAILURE ORAL ACTIVE 12/14/2025 [id number] KAREN JIANG 2024 45 [facility] N Immunizations Combined list of available immunizations from the Department of [facility] and [facility] facilities. Immunization Series Date Given Administered By Site Reaction Lot Number CVX Code Drug Manager Surgery Status Comments Source COVID-19 (PFIZER), MRNA, LNP-S, PF, NICK-SUCROSE, 30 MCG/0.3 ML (AGES 12+ YEARS) 2024 KIERA MÁRQUEZ LEFT DELTO ID [id number] complet ed [facility] INFLUENZA, UNSPECIFIED FORMULATION 2023 88 complet ed [facility] N Results Combined list of recent chemistry, hematology and other laboratory results from [facility] of Defense and [facility], ranging from 15 months to all on record, depending upon the facility. Order Name Results Value Reference Range Date Interpretation Specimen Comments Source CBC LEUKOCYTES [#/VOLUME] IN BLOOD BY AUTOMATED COUNT 10.3 10*3/u L 3.6 - 11.2 12/13 Specimen Type: BLOOD No comment entered. Ordering Provider: KAREN JIANG Report Released Date/Time: Dec 13, 2024 01:57 PM Reporting Lab: [facility] [address] [place] [address] Performing Lab: [facility] [address] DIVISION CBC ERYTHROCYTE S [#/VOLUME] IN BLOOD BY AUTOMATED COUNT 4.69 10*6/u L 4.10 - 5.70 12/13 Specimen Type: BLOOD No comment entered. Ordering Provider: KAREN JIANG Report Released Date/Time: Dec 13, 2024 01:57 PM Reporting Lab: [facility] [place] [address] Performing Lab: [facility] DIVISION CBC HEMOGLOBIN [MASS/VOLUM E] IN BLOOD 14.2 g/dL 13.1 - 16.8 12/13 Specimen Type: BLOOD No comment entered. Ordering Provider: KAREN JIANG Report Released Date/Time: Dec 13, 2024 01:57 PM Reporting Lab: [facility] [place] [address] Performing Lab: [facility] DIVISION CBC HEMATOCRIT [VOLUME FRACTION] OF BLOOD 44.7 38.2 - 48.4 12/13 Specimen Type: BLOOD No comment entered. Ordering Provider: KAREN JIANG Report Released Date/Time: Dec 13, 2024 01:57 PM Reporting Lab: [facility] [place] [address] Performing Lab: [facility] [address] [place] [phone] DIVISION CBC MCV [ENTITIC VOLUME] BY AUTOMATED COUNT 95.3 fL 80.0 - 100.0 12/13 Specimen Type: BLOOD No comment entered. Ordering Provider: KAREN JIANG Report Released Date/Time: Dec 13, 2024 01:57 PM Reporting Lab: [facility] [place] [address] Performing Lab: [facility] DIVISION CBC MCH [ENTITIC MASS] BY AUTOMATED COUNT 30.3 pg 27.0 - 34.0 12/13 Specimen Type: BLOOD No comment entered. Ordering Provider: KAREN JIANG Report Released Date/Time: Dec 13, 2024 01:57 PM Reporting Lab: [facility] [place] [address] Performing Lab: [facility] DIVISION CBC MCHC [MASS/VOLUM E] BY AUTOMATED COUNT 31.8 g/dL 33.0 - 36.0 12/13 L Specimen Type: BLOOD No comment entered. Ordering Provider: KAREN JIANG Report Released Date/Time: Dec 13, 2024 01:57 PM Reporting Lab: [facility] [place] [address] Performing Lab: [facility] DIVISION CBC PLATELETS [#/VOLUME] IN BLOOD BY AUTOMATED COUNT 239 10*3/u L 150 - 400 12/13 Specimen Type: BLOOD No comment entered. Ordering Provider: KAREN JIANG Report Released Date/Time: Dec 13, 2024 01:57 PM Reporting Lab: [facility] [place] [phone] Performing Lab: [facility] [facility] [phone] DIVISION CBC PLATELET MEAN VOLUME [ENTITIC VOLUME] IN BLOOD BY AUTOMATED COUNT 10.4 fL 7.5 - 11.2 12/13 Specimen Type: BLOOD No comment entered. Ordering Provider: KAREN JIANG Report Released Date/Time: Dec 13, 2024 01:57 PM Reporting Lab: [facility] [place] [address] Performing Lab: [facility] DIVISION CBC ERYTHROCYTE DISTRIBUTIO N WIDTH [RATIO] BY AUTOMATED COUNT 13.4 11.8 - 15.1 12/13 Specimen Type: BLOOD No comment entered. Ordering Provider: KAREN JIANG Report Released Date/Time: Dec 13, 2024 01:57 PM Reporting Lab: [facility] [place] [address] Performing Lab: [facility] DIVISION CBC LYMPHOCYTES /100 LEUKOCYTES IN BLOOD BY AUTOMATED COUNT 19 12/13 Specimen Type: BLOOD No comment entered. Ordering Provider: KAREN JIANG Report Released Date/Time: Dec 13, 2024 01:57 PM Reporting Lab: [facility] [place] [address] Performing Lab: [facility] #[address] DIVISION CBC MONOCYTES/1 00 LEUKOCYTES IN BLOOD BY AUTOMATED COUNT 7 12/13 Specimen Type: BLOOD No comment entered. Ordering Provider: KAREN JIANG Report Released Date/Time: Dec 13, 2024 01:57 PM Reporting Lab: [facility] [place] [address] Performing Lab: [facility] [facility] [phone] [place] [address] DIVISION CBC NEUTROPHILS /100 LEUKOCYTES IN BLOOD BY AUTOMATED COUNT 72 12/13 Specimen Type: BLOOD No comment entered. Ordering Provider: KAREN JIANG Report Released Date/Time: Dec 13, 2024 01:57 PM Reporting Lab: [facility] [place] [address] Performing Lab: [facility] #[address] DIVISION CBC EOSINOPHILS /100 LEUKOCYTES IN BLOOD BY AUTOMATED COUNT 1 12/13 Specimen Type: BLOOD No comment entered. Ordering Provider: KAREN JIANG Report Released Date/Time: Dec 13, 2024 01:57 PM Reporting Lab: [facility] [place] [address] Performing Lab: [facility] #[address] DIVISION CBC BASOPHILS/1 00 LEUKOCYTES IN BLOOD BY AUTOMATED COUNT 1 12/13 Specimen Type: BLOOD No comment entered. Ordering Provider: KAREN JIANG Report Released Date/Time: Dec 13, 2024 01:57 PM Reporting Lab: [facility] [place] [address] Performing Lab: [facility] #[address] DIVISION CBC LYMPHOCYTES [#/VOLUME] IN BLOOD BY AUTOMATED COUNT 1.96 10*3/u L 0.77 - 4.50 12/13 Specimen Type: BLOOD No comment entered. Ordering Provider: KAREN JIANG Report Released Date/Time: Dec 13, 2024 01:57 PM Reporting Lab: [facility] [place] [address] Performing Lab: [facility] [address] CBC MONOCYTES [#/VOLUME] IN BLOOD BY AUTOMATED COUNT 0.69 10*3/u L 0.19 - 0.80 12/13 Specimen Type: BLOOD No comment entered. Ordering Provider: KAREN JIANG Report Released Date/Time: Dec 13, 2024 01:57 PM Reporting Lab: [facility] [place] [address] Performing Lab: [facility] #[address] DIVISION CBC NEUTROPHILS [#/VOLUME] IN BLOOD BY AUTOMATED COUNT 7.36 10*3/u L 2.10 - 8.00 12/13 Specimen Type: BLOOD No comment entered. Ordering Provider: KAREN JIANG Report Released Date/Time: Dec 13, 2024 01:57 PM Reporting Lab: [facility] [place] [address] Performing Lab: [facility] DIVISION CBC EOSINOPHILS [#/VOLUME] IN BLOOD BY AUTOMATED COUNT 0.13 10*3/u L 0.00 - 0.60 12/13 Specimen Type: BLOOD No comment entered. Ordering Provider: KAREN JIANG Report Released Date/Time: Dec 13, 2024 01:57 PM Reporting Lab: [facility] [place] [address] Performing Lab: [facility] [address] DIVISION CBC BASOPHILS [#/VOLUME] IN BLOOD BY AUTOMATED COUNT 0.10 10*3/u L 0.00 - 0.20 12/13 Specimen Type: BLOOD No comment entered. Ordering Provider: KAREN JIANG Report Released Date/Time: Dec 13, 2024 01:57 PM Reporting Lab: [facility] [place] [address] Performing Lab: [facility] DIVISION COMPREHENS LAYLA METABOLIC PANEL CREATININE [MASS/VOLUM E] IN SERUM OR PLASMA 1.26 mg/dL 0.70 - 1.30 12/13 Specimen Type: PLASMA Comment: No hemolysis noted. Ordering Provider: KAREN JIANG Report Released Date/Time: Dec 13, 2024 01:57 PM Reporting Lab: [facility] [place] [address] Performing Lab: [facility] [address] COMPREHENS LAYLA METABOLIC PANEL UREA NITROGEN [MASS/VOLUM E] IN SERUM OR PLASMA 22.4 mg/dL 9.0 - 25.0 12/13 Specimen Type: PLASMA Comment: No hemolysis noted. Ordering Provider: KAREN JIANG Report Released Date/Time: Dec 13, 2024 01:57 PM Reporting Lab: [facility] [place] [address] Performing Lab: [facility] DIVISION COMPREHENS LAYLA METABOLIC PANEL GLUCOSE [MASS/VOLUM E] IN SERUM OR PLASMA 119 mg/dL 72 - 99 12/13 H Specimen Type: PLASMA Comment: No hemolysis noted. Ordering Provider: KAREN JIANG Report Released Date/Time: Dec 13, 2024 01:57 PM Reporting Lab: [facility] [place] [address] Performing Lab: [facility] #[address] DIVISION COMPREHENS LAYLA METABOLIC PANEL SODIUM [MOLES/VOLU ME] IN SERUM OR PLASMA 143 meq/L 136 - 145 12/13 Specimen Type: PLASMA Comment: No hemolysis noted. Ordering Provider: KAREN JIANG Report Released Date/Time: Dec 13, 2024 01:57 PM Reporting Lab: [facility] [place] [address] Performing Lab: [facility] DIVISION COMPREHENS LAYLA METABOLIC PANEL POTASSIUM [MOLES/VOLU ME] IN SERUM OR PLASMA 4.7 meq/L 3.5 - 5.0 12/13 Specimen Type: PLASMA Comment: No hemolysis noted. Ordering Provider: KAREN JIANG Report Released Date/Time: Dec 13, 2024 01:57 PM Reporting Lab: [facility] [place] [address] Performing Lab: [facility] DIVISION COMPREHENS LAYLA METABOLIC PANEL CHLORIDE [MOLES/VOLU ME] IN SERUM OR PLASMA 105 meq/L 98 - 107 12/13 Specimen Type: PLASMA Comment: No hemolysis noted. Ordering Provider: KAREN JIANG Report Released Date/Time: Dec 13, 2024 01:57 PM Reporting Lab: [facility] [place] [address] Performing Lab: [facility] DIVISION COMPREHENS LAYLA METABOLIC PANEL CARBON DIOXIDE, TOTAL [MOLES/VOLU ME] IN SERUM OR PLASMA 28 meq/L 22 - 31 12/13 Specimen Type: PLASMA Comment: No hemolysis noted. Ordering Provider: KAREN JIANG Report Released Date/Time: Dec 13, 2024 01:57 PM Reporting Lab: [facility] [place] [address] Performing Lab: [facility] [address] DIVISION COMPREHENS LAYLA METABOLIC PANEL CALCIUM [MASS/VOLUM E] IN SERUM OR PLASMA 9.6 mg/dL 8.4 - 10.4 12/13 Specimen Type: PLASMA Comment: No hemolysis noted. Ordering Provider: KAREN JIANG Report Released Date/Time: Dec 13, 2024 01:57 PM Reporting Lab: [facility] [place] [address] Performing Lab: [facility] DIVISION COMPREHENS LAYLA METABOLIC PANEL PROTEIN [MASS/VOLUM E] IN SERUM OR PLASMA 7.5 g/dL 6.0 - 8.6 12/13 Specimen Type: PLASMA Comment: No hemolysis noted. Ordering Provider: KAREN JIANG Report Released Date/Time: Dec 13, 2024 01:57 PM Reporting Lab: [facility] [place] [address] Performing Lab: [facility] [address] DIVISION COMPREHENS LAYLA METABOLIC PANEL ALBUMIN [MASS/VOLUM E] IN SERUM OR PLASMA 4.6 g/dL 3.4 - 5.0 12/13 Specimen Type: PLASMA Comment: No hemolysis noted. Ordering Provider: KAREN JIANG Report Released Date/Time: Dec 13, 2024 01:57 PM Reporting Lab: [facility] [place] [address] Performing Lab: [facility] [address] DIVISION COMPREHENS LAYLA METABOLIC PANEL BILIRUBIN.T OTAL [MASS/VOLUM E] IN SERUM OR PLASMA 0.5 mg/dL 0.2 - 1.2 12/13 Specimen Type: PLASMA Comment: No hemolysis noted. Ordering Provider: KAREN JIANG Report Released Date/Time: Dec 13, 2024 01:57 PM Reporting Lab: [facility] [place] [address] Performing Lab: [facility] DIVISION COMPREHENS LAYLA METABOLIC PANEL ALKALINE PHOSPHATASE [ENZYMATIC ACTIVITY/VO LUME] IN SERUM OR PLASMA 80 U/L 40 - 150 12/13 Specimen Type: PLASMA Comment: No hemolysis noted. Ordering Provider: KAREN JIANG Report Released Date/Time: Dec 13, 2024 01:57 PM Reporting Lab: [facility] [place] [address] Performing Lab: [facility] DIVISION COMPREHENS LAYLA METABOLIC PANEL ASPARTATE AMINOTRANSF ERASE [ENZYMATIC ACTIVITY/VO LUME] IN SERUM OR PLASMA 17 U/L 5 - 34 12/13 Specimen Type: PLASMA Comment: No hemolysis noted. Ordering Provider: KAREN JIANG Report Released Date/Time: Dec 13, 2024 01:57 PM Reporting Lab: [facility] [place] [address] Performing Lab: [facility] #[address] COMPREHENS LAYLA METABOLIC PANEL ALANINE AMINOTRANSF ERASE [ENZYMATIC ACTIVITY/VO LUME] IN SERUM OR PLASMA <7U/L 8 - 40 12/13 L Specimen Type: PLASMA Comment: No hemolysis noted. Ordering Provider: KAREN JIANG Report Released Date/Time: Dec 13, 2024 01:57 PM Reporting Lab: [facility] [place] [address] Performing Lab: [facility] [address] DIVISION COMPREHENS LAYLA METABOLIC PANEL GLOMERULAR FILTRATION RATE/1.73 SQ M.PREDICTED [VOLUME RATE/AREA] IN SERUM, PLASMA OR BLOOD BY CREATININE- BASED FORMULA (CKD-EPI 2020) 58.38 60 12/13 Specimen Type: PLASMA Comment: No hemolysis noted. Ordering Provider: KAREN JIANG Report Released Date/Time: Dec 13, 2024 01:57 PM Reporting Lab: [facility] [phone] Performing Lab: [facility] [phone] [place] [address] DIVISION HGA1C HEMOGLOBIN A1C/HEMOGLO BIN.TOTAL IN BLOOD 6.1 4.0 - 6.0 12/13 H Specimen Type: BLOOD No comment entered. Ordering Provider: KAREN JIANG Report Released Date/Time: Dec 13, 2024 01:57 PM Reporting Lab: [facility] [phone] Performing Lab: [facility] [address] DIVISION Vital Signs Combined list of inpatient and outpatient Vital Signs from [facility] Defense and [facility] Affairs, ranging from 12 months to all on record, depending upon the facility. Vital Sign Value Date Comments Source SYSTOLIC BLOOD PRESSURE 112 12/13/2024 13:05:15 [facility] DIASTOLIC BLOOD PRESSURE 72 12/13/2024 13:05:15 [facility] PULSE OXIMETRY 95 12/13/2024 13:05:15 [facility] WEIGHT 210.4 12/13/2024 13:05:15 [facility] BMI 33 kg/m2 12/13/2024 13:05:15 [facility] PAIN 5 12/13/2024 13:05:15 [facility] HEIGHT 67 12/13/2024 13:05:15 [facility] TEMPERATURE 98 12/13/2024 13:05:15 [facility] PULSE 81 12/13/2024 13:05:15 [facility] RESPIRATION 18 12/13/2024 13:05:15 [facility] Encounters Combined list of: 1) Encounters from [facility] facilities going backup to the last 18 months, not all [place] inpatient encounters are included; 2) Encounters from the Department of [facility] facilities going backup to 280 months. Location Location Details Encounter Type Encounter Number Reason For Visit Attending Provider ADM Date DC Date Status Disposition Source [facility] Outpatient Encounter [id number] 08/30 [facility] N [facility] Outpatient Encounter [id number] 09/29 [facility] N [facility] OFF/OP EST FEBRUARY X REQ PHY/QHP [id number] Diagnos is: ICD-10- CM Z71.89 Other specifi ed career development counselor TRACY Sprague E 12/05 [facility] OFFICE O/[place] 60 MIN [id number] Diagnos is: ICD-10- CM G20.C Sajan onism, unspeci KAREN Mcgowan 12/13 [facility] Social History Combined list of available smoking, tobacco, and other social history from [facility] Defense and [facility] facilities. Social History Type Response Date Comment Sourc e Tobacco smoking status NHIS SC-TOBACCO NEVER USED CIGARETTES 12/13/2024 [facility] History of tobacco use SC-TOBACCO NEVER USED OTHER TYPE 12/13/2024 [facility] Plan of Care List of future care activities from Department [facility] facilities. Additional future care activities may be listed in the Assessment and Plan section. Date/Time Care Activity Care Activity Detail Facili ty 02/08/2025 AMBULATORY - SURGERY AMBULATORY - SURGERY [facility]
--- OUTSIDE RECORDS SUMMARY | 2025-01-08 16:20 | XMS_ITS | CONTINUITY OF CARE DOCUMENT ---
Author Name tate ybarra Address Unknown Organization [facility] Address [address] [place] [address] Phone [phone] Care Team Providers Care Pv Design Engineer Name Role Phone Nathaniel Washington MD Unavailable [phone] JARRED WOODRUFF, WARD Unavailable [phone] WARD STERN MD Unavailable [phone] PROBLEMS Condition Status Date Provider Notes Cardiology examination completed 5 - Nathaniel Washington MD CAD S/P LAD STENT 02/2019 active Joselito Lewis NSTEMI 02/2019 active Nathaniel Washington MD Cardiomyopathy - 02/2019 CAT H EF 35% - 05/2019 TTE EF 55% active Joselito Lewis Hypertension active Nathaniel Washington MD Dyslipidemia active Nathaniel Washington MD Diabetes mellitus active Nathaniel Washington MD Shortness of breath active Nathaniel Washington MD Fatigue active Nathaniel Washington MD Preop cardiovasc. examination active Elizabeth Nolan CHF active Maura Nolan Leg edema, bilateral active Nathaniel Washington MD Family History of CVA or Stroke: completed - Nathaniel Washington MD Family History of Hypertension: completed - Nathaniel Washington MD ENCOUNTERS Date Type Provider Location Encounter Diag nosis - In-person encounter Office Visit Nathaniel Washington MD [facility] - In-person encounter Office Visit Nathaniel Washington MD [facility] Leg edema, bilateral - In-person encounter Office Visit Nathaniel Washington MD [facility] - In-person encounter Office Visit Nathaniel Washington MD [facility] - In-person encounter Office Visit Nathaniel Washington MD [facility] - In-person encounter Office Visit Nathaniel Washington MD [facility] CHF - In-person encounter Office Visit Nathaniel Washington MD [facility] Preop cardiovasc. examination - In-person encounter Office Visit Nathaniel Washington MD [facility] Shortness of breathFatigue - In-person encounter Office Visit Nathaniel Washington MD [facility] - In-person encounter Office Visit Nathaniel Washington MD [facility] CAD S/P LAD STENT 02/2019Cardiomyopathy - 02/2019 CATH EF 35% - 05/2019 TTE EF 55% - In-person encounter Office Visit Nathaniel Washington MD [facility] Cardiology examinationFamily History of Hypertension:Family History of CVA or Stroke:CAD S/P LAD STENT 02/2019NSTEMI 02/2019Cardiomyopathy - 02/2019 CATH EF 35% - 05/2019 TTE EF 55%HypertensionDyslipidem iaDiabetes mellitus VITAL SIGNS Date Observation Value Provider Body Mass Index (Ratio) 31.22 kg/m2 Nathaniel Washington MD blood pressure, diastolic 75 mm[Hg] Liban ortiz [place] blood pressure, systolic 139 mm[Hg] Selene becker [place] oxygen saturation, oximetry 98 % Maite [place] pulse rate 73 /min Maite [place] weight E&M 217.6 [lb_av] Kyaron Ramirez height E&M 70 [in_i] Maite Ramirez blood pressure, cuff size regular Liban ortiz Ramirez Body Mass Index (Ratio) 31.42 kg/m2 Elver Marti oxygen saturation, oximetry 97 % Jo Ann Michaels blood pressure, cuff size regular An jordana Michaels blood pressure, diastolic 78 mm[Hg] An iyanico Michaels blood pressure, systolic 128 mm[Hg] Robina escobar [place] respiratory rate E&M 14 /min [facility] 64 [facility] weight E&M 219 [lb_av] [facility] height E&M 70 [in_i] [facility] Body Mass Index (Ratio) 32.42 kg/m2 Grah [...] Lul blood pressure, cuff size regular [facility] blood pressure, diastolic 63 mm[Hg] [facility] blood pressure, systolic 123 mm[Hg] [facility] Vance pulse rate 68 /min Karolina Vance oxygen saturation, oximetry 99 % Karolina Vance respiratory rate E&M 16 /min Karolina huertar weight E&M 243 [lb_av] Karolina Vance height E&M 70 [in_i] Karolina Woodworth Body Mass Index (Ratio) 33.28 kg/m2 [facility]atan [facility]endoza [facility] blood pressure, cuff size regular Ja rret [...] blood pressure, diastolic 69 mm[Hg] St niesha Anasri blood pressure, systolic 128 mm[Hg] Karuna Ansari [...] blood pressure, cuff size regular Kr isty [place] blood pressure, diastolic 70 mm[Hg] Kr isty [place] blood pressure, systolic 140 mm[Hg] Kri sty [place] pulse rate 80 /min Kerrie [place] oxygen saturation, oximetry 98 % Kerrie [place] respiratory rate E&M 19 /min Kerrie [place] weight E&M 250 [lb_av] Kerrie Mauro height E&M 70 [in_i] Kerrie [place] Body Mass Index (Ratio) 34.72 kg/m2 Artem Lewis blood pressure, diastolic, left arm 73 mm [Hg] [facility] blood pressure, systolic, left arm 131 mm [Hg] [facility] blood pressure, diastolic, right arm 79 m m[Hg] [facility] blood pressure, systolic, right arm 133 m m[Hg] [facility] blood pressure, diastolic 79 mm[Hg] [facility] blood pressure, systolic 133 mm[Hg] [facility] oxygen saturation, oximetry 98 % [facility] respiratory rate E&M 16 /min [facility] pulse rate 71 /min [facility] weight E&M 242 [lb_av] [facility] height E&M 70 [in_i] [facility] Body Mass Index (Ratio) 22.96 [...] Normal Absolute Neutrophil count 3998 cells/mcL [employer] [id number] Normal mean platelet volume 11.8 fL [employer] [...] as % of total hemoglobin 8.4 % [facility] triglyceride, serum, fasting 182 mg/dL [facility] HDL cholesterol, serum 35 mg/dL [facility] cholesterol, serum 141 mg/dL [facility] platelet count 202 10*3/uL [facility] red blood cell distribution width 13.7 % [facility] mean corpuscular hemoglobin concentration, RBC 32.8 g/dL [facility] mean corpuscular hemoglobin, RBC 28.8 pg [facility] mean corpuscular volume, RBC 87.9 fL [facility] hematocrit, blood 40.6 % [facility] hemoglobin, blood 13.3 g/dL [facility] erythrocyte (RBC) count 4.62 10*6/mm3 [facility] leukocyte count, blood 10.8 10*3/mm3 [facility] calcium, serum 9.0 mg/dL [facility] blood glucose, random 186 mg/dL [facility] creatinine, serum 1.06 mg/dL [facility] urea nitrogen, blood 22 mg/dL [facility] carbon dioxide, serum, total 27 mmol/L [facility] chloride, serum 97 mmol/L [facility] potassium, serum 3.4 mmol/L [facility] sodium, serum 136 mmol/L [facility] LDL cholesterol, serum 70 mg/dL [facility] HISTORY OF MEDICATION USE Medication Status Instructions Dates Provider Indications [facility] ments allopurinol 300 mg tablet active Take [...] Payer name Policy type / Coverage type [place] [employer] party ID [employer] [id number] [place] MEDICARE Medicare [id number] ADVANCE DIRECTIVES Name Date DISCUSSED - NO DECISION MADE TREATMENT PLAN Date Name Performer [id number],Maycol Johnson [id number],S, B P today: 123/63 P rior BP: [...] 1 tablet once a day Maycol Mccarty [id number],S, H is updated medication list for this [...] 1 tablet once a day Maycol Mccarty [id number],S, T he following medications were removed from [...] Take 1 tablet once a day Maycol Valadezri [id number],S,S till complaining of fatigue, we will stop carvedilol today. Will obtain f/u echo he will resume allopurinol for his gout. We will obtain lab work Maycol Mccarty [id number],C, D iet controlled Nathaniel Washington MD [id number],C, T he following medications were removed from [...] pain. Overall doing well. Nathaniel Washington MD [id number],C, H is updated medication list for this [...] tablet once a day Nathaniel Washington MD [id number],C, B P today: 106/64 P rior BP: [...] a day Orders: 9 9214 MOD 30-39min (CPT-08432) R PM (remote patient monitoring) (86515) Nathaniel Washington MD [id number],S, P t presented to [facility] with chest discomfort, ruled in for [place], and stent was placed in the mid LAD. Nathaniel Washington MD [id number],C, P t reports improvement with Jardiance, however still SOB CHF class III. PFTs were normal. [facility] [facility]. T he [...] tablet once a day Nathaniel Washington MD [id number],C, P t denies any chest pain. T [...] tablet once a day Nathaniel Washington MD [id number],C,P t reports improvement with Jardiance, however still SOB CHF class III. PFTs were normal. He [facility]. H is updated medication list [...] 1 tablet once a day Maura Nolan [id number],C, H is updated medication list for this [...] 1 tablet once a day Maura Nolan [id number],S, D iet controlled [facility] [id number],C, B P today: 128/69 P rior BP: [...] Take 1 tablet once a day [facility] [id number],C,P t denies any chest pain. His updated [...] Take 1 tablet once a day [facility] [id number],C,P t reports improvement with Jardiance, however still [...] 1 tablet once a day Maura Nolan [id number],C, He is planned for surgery, he is [...] 1 tablet once a day Maura Schwarzgood [id number],C, EF preserved. LVEDP was elevated consistent with HFpEF. Will try Jardiance 10 mg . Will obtain PFTs for non cardiovascular cause of SOB. He is planned for surgery, he is cleared for surgery from cardiovascular perspective. Maura Schwarzgood [id number],C, EF preserved. LVEDP was elevated consistent with [...] 1 tablet once a day Maura Schwarzgood [id number],C,C ardiac cath revealed no significant coronary stenosis. [...] 1 tablet once a day Maura An [id number],C, H is updated medication list for this [...] tablet once a day Nathaniel Washington MD [id number],C, D iet controlled Nathaniel Washington MD [id number],C, B P today: 142/76 P rior BP: [...] tablet once a day Nathaniel Washington MD [id number],C, H is updated medication list for this problem includes: Enalapril Maleate 5 Mg Tablet (Enalapril maleate) ..... Take 1 tablet by mouth at bedtime Metformin 500 Mg Tablet (Metformin) ..... Take 1 tablet twice a day Aspirin 81 Mg Tablet,chewable (Aspirin) ..... Take 1 tablet once a day Maura An [id number],C, B P today: 114/58 P rior BP: [...] 1 tablet once a day Maura An [id number],C,C omplaing of SOB with minimal exertion and [...] 1 tablet once a day Maura Nolan [id number],C,C omplaing of SOB with minimal exertion and excessive faitgue. Pt denies chest pain. Echo showed normal EF. Due to hx of severe CAD and his symptoms, will obtain R/L cardiac cath. Maura Nolan [id number],C,C omplaing of SOB with minimal exertion and [...] 1 tablet once a day Maura Nolan [id number],C, H is updated medication list for this problem includes: Enalapril Maleate 5 Mg Tablet (Enalapril maleate) ..... Take 1 tablet by mouth every night Metformin 500 Mg Tablet (Metformin) ..... Take 1 tablet twice a day Aspirin 81 Mg Tablet,chewable (Aspirin) ..... Take 1 tablet once a day Maura Nolan [id number],S,O n statin. His updated medication list for this problem includes: Simvastatin 40 Mg Tablet (Simvastatin) ..... Take 1 tablet once a day Maura Nolan [id number],C, B P today: 140/70 P rior BP: [...] 1 tablet once a day Maura Nolan [id number],C,P t denies SOB and chest pain. Overall [...] 1 tablet once a day Maura Nolan [id number],C,P t denies SOB and chest pain. Overall [...] V enous Doppler Bilateral LE - Reflux (CPT-28180) 9 9215 HIGH 40-54min (CPT-02949) C omplex e/m visit add on (G2211) Nathaniel Washington MD Cardiology:Complains of exertional dyspnea on minimal activity, which is new for him and not improving. He has known CAD with significant risk factors, new onset sxs, I recommend pt undergo stress PET. Orders: C OMPREHENSIVE METABOLIC PANEL, W/EGFR (04965) L IPID PANEL (7600) H EMOGLOBIN A1c (496) C BC (INCLUDES DIFF/PLT) (6399) P ROBNP, N TERMINAL (38505) C RP, high sensitivity (02777) M icroalb/Creatinine Urine, Random (6517) S tress Cardiac PET-CT (54969) m yocardial blood flow (PET) (84599) 9 9215 HIGH 40-54min (CPT-21420) C omplex e/m visit add on (G2211) Nathaniel Washington MD Cardiology Nathaniel Washington MD Cardiology:Complains of exertional dyspnea on minimal activity, which is new for him and not improving. He has known CAD with significant risk factors, new onset sxs, I recommend pt undergo stress PET. Orders: C OMPREHENSIVE METABOLIC PANEL, W/EGFR (56068) L IPID PANEL (7600) H EMOGLOBIN A1c (496) C BC (INCLUDES DIFF/PLT) (6399) P ROBNP, N TERMINAL (48201) C RP, high sensitivity (00412) M icroalb/Creatinine Urine, Random (6517) S tress Cardiac PET-CT (37874) m yocardial blood flow (PET) (42918) 9 9215 HIGH 40-54min (CPT-56982) C omplex e/m visit add on (G2211) [...] day Orders: C OMPREHENSIVE METABOLIC PANEL, W/EGFR (33714) L IPID PANEL (7600) H EMOGLOBIN A1c (496) C BC (INCLUDES DIFF/PLT) (6399) P ROBNP, N TERMINAL (57846) C RP, high sensitivity (38045) M icroalb/Creatinine Urine, Random (6517) S tress Cardiac PET-CT (50975) m yocardial blood flow (PET) (21912) 9 9215 HIGH 40-54min (CPT-92891) C omplex e/m visit add on (G221) Nathaniel Washington MD Cardiology: H is updated medication list for this problem includes: Enalapril Maleate 5 Mg Tablet (Enalapril maleate) ..... Take 1 tablet by mouth at bedtime Aspirin 81 Mg Tablet,chewable (Aspirin) ..... Take 1 tablet once a day Orders: C OMPREHENSIVE METABOLIC PANEL, W/EGFR (79086) L IPID PANEL (7600) H EMOGLOBIN A1c (496) C BC (INCLUDES DIFF/PLT) (6399) P ROBNP, N TERMINAL (09426) C RP, high sensitivity (93743) M icroalb/Creatinine Urine, Random (6517) S tress Cardiac PET-CT (95577) m yocardial blood flow (PET) (26847) 9 9215 HIGH 40-54min (CPT-07330) C omplex e/m visit add on (G2211) [...] day Orders: C OMPREHENSIVE METABOLIC PANEL, W/EGFR (95157) L IPID PANEL (7600) H EMOGLOBIN A1c (496) C BC (INCLUDES DIFF/PLT) (6399) P ROBNP, N TERMINAL (99725) C RP, high sensitivity (89194) M icroalb/Creatinine Urine, Random (6538) S tress Cardiac PET-CT (50793) m yocardial blood flow (PET) (15279) 9 9215 HIGH 40-54min (CPT-23874) C omplex e/m visit add on (G2211) Nathaniel Washington MD Cardiology: H is updated medication list for this problem includes: Enalapril Maleate 5 Mg Tablet (Enalapril maleate) ..... Take 1 tablet by mouth at bedtime Aspirin 81 Mg Tablet,chewable (Aspirin) ..... Take 1 tablet once a day [facility] Cardiology: H is updated medication list for this problem includes: Jardiance 10 Mg Tablet (Empagliflozin) ..... Take 1 tablet by mouth once daily Enalapril Maleate 5 Mg Tablet (Enalapril maleate) ..... Take 1 tablet by mouth at bedtime Metformin 500 Mg Tablet (Metformin) ..... Take 1 tablet twice a day Aspirin 81 Mg Tablet,chewable (Aspirin) ..... Take 1 tablet once a day [facility] Cardiology: H is updated medication list for this problem includes: Enalapril Maleate 5 Mg Tablet (Enalapril maleate) ..... Take 1 tablet by mouth at bedtime Hydrochlorothiazide 25 Mg Tablet (Hydrochlorothiazide) ..... Take 3 tablet by mouth once a day Aspirin 81 Mg Tablet,chewable (Aspirin) ..... Take 1 tablet once a day [facility] Cardiology:Pt denies CP or SOB. DId not notice improvement in fatigue after stopping carvedilol [facility] Cardiology:Pt denies CP or SOB. LDL 86. In view of hx of CAD s/p stent placement will start rosuvastatin 10mg daily. H is updated medication list for this problem includes: Rosuvastatin 10 Mg Tablet (Rosuvastatin) ..... Take 1 tablet by mouth every day at [facility] Cardiology: B P today: 123/63 P rior [...] tablet once a day Maycol Mccarty Cardiology: T he following medications were removed [...] a day Orders: 9 9214 MOD 30-39min (CPT-78597) R PM (remote patient monitoring) (76274) Nathaniel Washington MD Cardiology: P t presented to [facility] with chest discomfort, ruled in for [place], and stent was placed in the mid LAD. Nathaniel Washington MD Cardiology: P t reports improvement with Jardiance, however still SOB CHF class III. PFTs were normal. He would liek to [facility]. T he following medications were [...] He would liek to [facility]. H is updated medication list [...] PFTs were normal. [facility]. [...] symptoms, will obtain R/L cardiac cath. Maura Carrasquillomsgood Cardiology:Complaing of SOB with minimal exertion and [...] Chewable (Aspirin) ..... Take 1 tablet daily [facility] Cardiology:His upd ed medication list for this problem includes: Simvastatin 40 Mg Oral Tablet (Simvastatin) ..... Take one tablet daily [facility] Cardiology:BP today: 133/79 P rior BP: 120/62 (03/14/2019) His updated medication list for this problem includes: Enalapril 5mg Tab (Enalapril maleate) ..... Take 1 tablet by mouth at bedtime Hydrochlorothiazide 25 Mg Oral Tablet (Hydrochlorothiazide) ..... Take 3 tablets by mouth once daily Carvedilol 6.25 Mg Oral Tablet (Carvedilol) ..... Take 1 tablet by mouth twice daily [facility] Cardiology:No sympto ms. EF improved to 55%. [...] Take 1 tablet by mouth twice daily [facility] Cardiology:No sympto ms. EF improved to 55%. His updated medication list for this problem includes: Enalapril 5mg Tab (Enalapril maleate) ..... Take 1 tablet by mouth at bedtime Hydrochlorothiazide 25 Mg Oral Tablet (Hydrochlorothiazide) ..... Take 3 tablets by mouth once daily Carvedilol 6.25 Mg Oral Tablet (Carvedilol) ..... Take 1 tablet by mouth twice daily [facility] follow up :His updated medication list for this problem includes: Metformin Hcl 500 Mg Oral Tablet (Metformin hcl) ..... Take 1 tablet twice a day Enalapril Maleate 5 Mg Oral Tablet (Enalapril maleate) ..... Take 1 tablet at bedtime Aspirin Low Strength 81 Mg Oral Tablet Chewable (Aspirin) ..... Take 1 tablet daily [facility] follow up :His updated medication list for this problem includes: Simvastatin 40 Mg Oral Tablet (Simvastatin) ..... Take one tablet daily [facility] follow up :BP today: 120/62 His updated medication list for this problem includes: Enalapril Maleate 5 Mg Oral Tablet (Enalapril maleate) ..... Take 1 tablet at bedtime Hydrochlorothiazide 25 Mg Oral Tablet (Hydrochlorothiazide) ..... Take 3 tablets by mouth once daily Carvedilol 6.25 Mg Oral Tablet (Carvedilol) ..... Take 1 tablet by mouth twice daily [facility] follow up :Pt presented to [facility] with chest discomfort, ruled in for WA, and stent was placed in the mid LAD. EF was 35%. He's feeling much better and denies chest pain. Will obtain an echo in early April. If EF is low, we will consider AICD. If EF is recovered, we will consider him for the [employer]-[place] trial. His updated medication list for this problem includes: Enalapril Maleate 5 Mg Oral Tablet (Enalapril maleate) ..... Take 1 tablet at bedtime Hydrochlorothiazide 25 Mg Oral Tablet (Hydrochlorothiazide) ..... Take 3 tablets by mouth once daily Carvedilol 6.25 Mg Oral Tablet (Carvedilol) ..... Take 1 tablet by mouth twice daily [facility] follow up :Pt presented to [facility] with chest discomfort, ruled in for WA, and stent was placed in the mid [...] Cardiology hospital follow up :Pt presented to [facility] with chest discomfort, ruled in for [place], and stent was placed in the mid [...] Echo RPM (remote patient monitoring) DLCO - 72847 FRC - 63770 FVC - 57201 RPM (remote patient monitoring) PROTHROMBIN TIME WIT H INR LIPID PANEL CBC (INCLUDES DIFF/P LT) BASIC METABOLIC PANE L W/EGFR Cardiac Cath - L/R - GC Complete Echo Complete Echo HISTORY OF PROCEDURES Procedure Date Procedure Name Provider Procedure Notes S tatus Complex e/m visit add on Nathaniel Washington MD completed Complex e/m visit add on Nathaniel Washington MD [ [facility] completed EKG Nathaniel Washington MD completed Spirometry Nathaniel Washington MD completed FVC / MVV with bronchodilator - 64443 Nathaniel Washington MD completed FRC - 44322 Nathaniel Washington MD completed SpO2 w/o 6min walk/titration Nathaniel Washington MD completed SVC - 48928 Nathaniel Washington MD completed DLCO - 32318 Nathaniel Washington MD complete d EKG Nathaniel Washington MD completed EKG Nathaniel Washington MD completed EKG Nathaniel Washington MD completed
--- OUTSIDE RECORDS SUMMARY | 2025-01-08 16:21 | XMS_ITS | Referral Summary ---
Author Organization [facility] ([facility]3] at the [facility] Address [facility] [place] [address] Care Team Providers Care Railroad Police Officer Name Role Phone Baltazar Lewis MD Primary Care Provider Encounters Date Type Department Care Team Description 10/25/2024 2:00 PM FREIGHT TEAM ASSOCIATE Office Visit [facility] Neurology [facility] [facility] [address] [place] [address] Angel Milligan Si, MD Parkinson's [...] Type 2 diabetes mellitus 10/25/2024 Parkinson's disease ([facility]/HCC) 10/25/2024 Osteoarthritis of both knees 09/08/2023 [...] 12/05/2020 Assessment & Plan (12/05/2020 1:17 PM FREIGHT TEAM ASSOCIATE): Patient is a former patient of [facility]. Prior medical records from [facility] have been requested. He continues on [...] 12/05/2020 Assessment & Plan (12/05/2020 1:18 PM FREIGHT TEAM ASSOCIATE): Patient finds good tolerability and successful suppression [...] on file Legal Sex Male 8:05 AM FREIGHT TEAM ASSOCIATE Gender Identity Not on file Sexual Orientation Not on file Last Filed Vital Signs Vital Sign Reading Time Taken Comments Blood Pressure 124/70 10/25/2024 1:53 PM FREIGHT TEAM ASSOCIATE Pulse 78 10/25/2024 1:53 PM FREIGHT TEAM ASSOCIATE Temperature 36.3 C (97.3 F) 08/10/2022 3:08 PM CDT Respiratory Rate 18 08/10/2022 3:08 PM CDT Oxygen Saturation 96% 10/25/2024 1:53 PM FREIGHT TEAM ASSOCIATE Inhaled Oxygen Concentration - - Weight 97.1 kg (214 lb) 10/25/2024 1:53 PM FREIGHT TEAM ASSOCIATE Height 170.2 cm (5' 7 ) 10/25/2024 1:53 PM FREIGHT TEAM ASSOCIATE Body Mass Index 33.52 10/25/2024 1:53 PM FREIGHT TEAM ASSOCIATE Plan of Treatment Not on file Insurance MEDICARE [facility] MEDICARE [facility] Care Teams [employer] Police Officer Relationship Specialty Start Date End Date Baltazar Lewis MD [address] [facility] [place] [id number] PCP - General Internal Medicine 08/19/20
--- OUTSIDE RECORDS SUMMARY | 2025-01-08 16:21 | XMS_ITS | Clinical Summary ---
Author Organization [facility] [place] [facility] Address [address] [place] [address] Care Team Providers Care Telegraph Office Telephone Clerk Name Role Phone Baltazar Lewis MD Primary [...] Type 2 diabetes mellitus 10/25/2024 Parkinson's disease ([facility]) 10/25/2024 Osteoarthritis of both knees 09/08/2023 Disorder [...] 12/05/2020 Assessment & Plan (12/05/2020 1:17 PM INSIDE SALES COORDINATOR): Patient is a former patient of [facility]. Prior medical records from [facility] have been requested. He continues on [...] 12/05/2020 Assessment & Plan (12/05/2020 1:18 PM INSIDE SALES COORDINATOR): Patient finds good tolerability and successful suppression of neuropathic pain with pregabalin. Pulmonary embolism 05/30/2019 Coronary arteriosclerosis 02/26/2019 Essential hypertension 02/26/2019 Kidney stone 05/24/2017 Encounters Date Type Department Care Team Description 10/25/2024 2:00 PM INSIDE SALES COORDINATOR Office Visit [facility] [address] [place] [address] [place] [id number] Angel Milligan Si, MD Parkinson's disease [...] on file Legal Sex Male 8:05 AM INSIDE SALES COORDINATOR Gender Identity Not on file Sexual Orientation Not on file Obstetrics History Last Filed Vital Signs Vital Sign Reading Time Taken Comments Blood Pressure 124/70 10/25/2024 1:53 PM INSIDE SALES COORDINATOR Pulse 78 10/25/2024 1:53 PM INSIDE SALES COORDINATOR Temperature 36.3 C (97.3 F) 08/10/2022 3:08 PM CDT Respiratory Rate 18 08/10/2022 3:08 PM CDT Oxygen Saturation 96% 10/25/2024 1:53 PM INSIDE SALES COORDINATOR Inhaled Oxygen Concentration - - Weight 97.1 kg (214 lb) 10/25/2024 1:53 PM INSIDE SALES COORDINATOR Height 170.2 cm (5' 7 ) 10/25/2024 1:53 PM INSIDE SALES COORDINATOR Body Mass Index 33.52 10/25/2024 1:53 PM INSIDE SALES COORDINATOR Plan of Treatment Health Maintenance Due Date [...] 07/27/2017, 10/27/2015, Additional history exists Insurance [facility] Care Teams Telegraph Office Telephone Clerk Relationship Specialty Start Date End Date Baltazar Lewis MD [address] [facility] [address] [place] [address] PCP - General Internal Medicine 08/19/20
[2025-01-08] MEDS: traMADol HCL (*CRX) 50 MG TABLET PO (18:09)
[2025-01-08 18:10] VITALS: BP 105/59; PULSE 67; RESP 16; O2SAT 98
--- NOTE | 2025-01-08 19:15 | PC.NURSE ---
LEILANI Galindo assessed splint prior to pt. d/c. Per LEILANI, splint is good and pt. ok to d/c.
--- NOTE | 2025-01-08 19:17 | PC.NURSE ---
Pt. given prescription for walker by LEILANI Galindo prior to d/c.
[2025-01-08 19:32] VITALS: BP 131/73; PULSE 94; RESP 16; O2SAT 93
== END 2025-01-08 19:35 | disposition home or self-care (01) ==
PROVIDERS: Emergency Provider Physician Assistant; PCP Internal Medicine
DX: S09.90XA Unspecified injury of head, initial encounter (principal); S52.592A Other fractures of lower end of left radius, initial encounter for closed fracture; R93.0 Abnormal findings on diagnostic imaging of skull and head, not elsewhere classified; E11.9 Type 2 diabetes mellitus without complications; Z79.84 Long term (current) use of oral hypoglycemic drugs; V48.4XXA Person boarding or alighting a car injured in noncollision transport accident, initial encounter
CPT/HCPCS: 29125; 70450; 72125; 73030; 73080; 73110; 73502; 99284; A4565; A9270